=== PATIENT | male | born 1950 | race Caucasian/White ===

== ENCOUNTER → 2017-09-16 11:57 | Outpatient (CLI) | payer MEDICARE, BC, SELFPAY | PROVIDERS: PCP Family Medicine; Visit Provider Surgery | DX: D64.9 Anemia, unspecified (principal); I10 Essential (primary) hypertension; E11.9 Type 2 diabetes mellitus without complications; Z79.84 Long term (current) use of oral hypoglycemic drugs | CPT/HCPCS: 99214 ==

== ENCOUNTER → 2017-09-25 10:00 | Outpatient (CLI) | payer MEDICARE, BC, SELFPAY | PROVIDERS: PCP Family Medicine; Visit Provider Surgery | DX: D64.9 Anemia, unspecified (principal); Z01.818 Encounter for other preprocedural examination ==

== ENCOUNTER → 2017-11-19 12:11 | Outpatient (BNVA) | payer MEDICARE, BC, SELFPAY | PROVIDERS: Visit Provider Nurse Practitioner Family | DX: I48.91 Unspecified atrial fibrillation (principal); I49.5 Sick sinus syndrome; Z45.018 Encounter for adjustment and management of other part of cardiac pacemaker; I11.0 Hypertensive heart disease with heart failure; I50.20 Unspecified systolic (congestive) heart failure; E11.9 Type 2 diabetes mellitus without complications; Z79.84 Long term (current) use of oral hypoglycemic drugs | CPT/HCPCS: 93279; 99213 ==

== ENCOUNTER 2017-11-22 15:39 | Outpatient (REF) | payer MEDICARE, BC, SELFPAY ==
[2017-11-22 18:57] LABS: Abs Immature Grans 0.04 k/cumm (0.0-0.09); Absolute Basophil Count 0.03 k/cumm (0.0-0.2); Absolute Eosinophil Count 0.41 k/cumm (0.0-0.7); Absolute Lymphocyte Count 1.23 k/cumm (1.2-3.4); Absolute Monocyte Count 0.86 k/cumm (0.11-0.7); Absolute Neutrophil Count 4.96 k/cumm (1.2-6.7); Basophils % 0.4; Eosinophils % 5.4; HCT 35.8 % (40.0-50.0); HGB 11.7 g/dL (13.5-17.5); Immature Grans % 0.5; Lymphocytes % 16.3; Mean Corp. HGB Concentration 32.7 g/dL (32.0-36.0); Mean Corpuscular Hemoglobin 32.5 pg (27.0-33.0); Mean Corpuscular Volume 99.4 fL (80-95); Monocytes % 11.4; Platelet Count 220 x1000/uL (130-400); RBC Distribution Width 15.2 % (11.8-14.1); White Blood Cell Count 7.53 k/cumm (4.4-10.8)
[2017-11-22 19:39] LABS: ALT 30 U/L (12-78); AST 26 U/L (15-37); Albumin 3.8 g/dL (3.4-5.0); Alkaline Phosphatase 110 U/L (46-116); Anion Gap 9.7 mmol/L (3-11); BUN 31 mg/dL (7-18); Bilirubin, Total 0.8 mg/dL (0.2-1.0); CO2 25.3 mmol/L (21.0-32.0); Calcium 8.2 mg/dL (8.5-10.1); Chloride 103 mmol/L (98-107); Folate 8.5 ng/mL (8.6-20.0); Glucose 174 mg/dL (70-100); Potassium 4.8 mmol/L (3.5-5.1); Sodium 138 mmol/L (136-145); Total Protein 6.4 g/dL (6.4-8.2); Vitamin B12 286 pg/mL (193-986)
[2017-11-22 19:42] LABS: ESR 13 MM/HR (1-20)
[2017-11-22 19:56] LABS: C-Reactive Protein 0.34 mg/dL (0.0-0.3)
[2017-11-22 22:32] LABS: Hemoglobin A1C 7.3 % (4.5-6.2)
[2017-11-25 10:01] LABS: PSA, Diagnostic 0.4 ng/ml (0-4.5)
[2017-11-25 13:58] LABS: Syphilis Serology (RPR) Negative (Negative)
== END 2017-11-22 15:59 ==
LOC: NCHCN 15:39
PROVIDERS: PCP Family Medicine; Visit Provider Family Medicine
DX: R41.3 Other amnesia (principal); M79.18 Myalgia, other site; E11.9 Type 2 diabetes mellitus without complications; Z79.84 Long term (current) use of oral hypoglycemic drugs; N40.0 Benign prostatic hyperplasia without lower urinary tract symptoms; Z11.3 Encounter for screening for infections with a predominantly sexual mode of transmission
CPT/HCPCS: 80053; 85652; 82607; 82746; 83036; 84153; 85025; 86140; 86592

== ENCOUNTER 2017-11-25 04:35 | Observation (INO) | payer MEDICARE, BC, SELFPAY ==
[2017-11-25] VITALS (95 sets, daily range): BP systolic 68–139; BP diastolic 47–91; PULSE 54–90; RESP 11–35; TEMP 35.9–36.8; O2SAT 92–100
--- NOTE | 2017-11-25 05:07 | W.ED.GENAD ---
Discharge Plan Discharge Details Chief Complaint: Dizzy/Sync Primary Care Provider: Joanne Brewster ED Provider: Shant Rivas Home Meds and New Rx's Prescriptions: No Action aspirin [Aspir-Low] 81 MG tablet,delayed release (DR/EC) 81 mg PO DAILY RF: 0 magnesium oxide 500 MG capsule 400 mg PO BID Qty: 1 RF: 0 amiodarone 200 MG tablet 200 mg PO DAILY RF: 0 ropinirole 2 MG tablet extended release 24 hr 2 mg PO HS RF: 0 spironolactone 25 MG tablet 50 mg PO DAILY RF: 0 lisinopril 5 MG tablet 2.5 mg PO QAM RF: 0 carvedilol 25 MG tablet 25 mg PO BID Qty: 0 RF: 0 furosemide [Lasix] 40 MG tablet 40 mg PO DAILY RF: 0 riboflavin (vitamin B2) [Vitamin B-2] 100 MG tablet 100 mg PO BID RF: 0 zolpidem 12.5 MG tablet,ext release multiphase 12.5 mg PO HS PRN PRNRF: 0 acetaminophen [Arthritis Pain Relief (acetam)] 650 MG tablet extended release 1,300 mg PO PRN PRNRF: 0 warfarin [Coumadin] 7.5 MG tablet 2.5 mg PO DAILY RF: 0 metformin 500 MG tablet extended release 24 hr 1,000 mg PO BID RF: 0 cyclobenzaprine 10 MG tablet 10 mg PO PRN PRNRF: 0 gabapentin 600 MG tablet 600 mg PO BID RF: 0 albuterol sulfate [ProAir HFA] 8.5 GM HFA aerosol inhaler 1 puff IN Q4H PRN PRNRF: 0 rosuvastatin [Crestor] 20 MG tablet 20 mg PO DAILY RF: 0 hydrocodone-acetaminophen 1 EACH tablet 1 ea PO PRN PRNRF: 0 Medical Decision Making 5:15 --67-year-old male with multiple medical problems including congestive heart failure with a EF of 20%, here after near syncopal episode last night with persistent chest discomfort. Patient is saturating well in no respiratory distress with normal heart rate and blood pressure. He does continue to have mild stinging discomfort at this time. Consider arrhythmia versus ACS versus PE vs other. ECG reviewed and interpreted by me: Ventricular paced rhythm 78 bpm, appropriately discordant. Will check trop. Of note, patient states that he has refused ICD placement and does wish to be DNR/DNI. He agrees with workup today as outlined. 5:50 -- Labs reviewed: initial trop neg. inr therapeutic. Cr elevated with poor GFR. PE highly unlikely. Given risk of worsening renal function as a result of contrast dye, and low risk of PE, will not CT. Patient reassessed: sleepy comfortably, pain resolved. I discussed diagnostic treatment plan with him and he is in agreement. Plan for delta trop and cxr. 6:50 --chest x-ray interpreted by radiology: Normal chest x-ray, mediastinum unremarkable, lungs unremarkable, heart unremarkable. 8:10 -- I called and spoke with hospitalist Dr. Ascencio who will admit the patient. He requested bridging orders be placed to the floor. Care signed out to Dr. Rivas -patient awaiting bed placement HPI General Mode of arrival: ambulatory. Date/Time Provider Initiated Documentation: 11/25/17 04:45. Limitations to Documentation: no limitations. Information obtained by: patient. HPI Narrative: 67-year-old male with multiple medical problems including chronic congestive heart failure with poor EF, mitral valve replacement, atrial fibrillation, diabetes, hypertension, presents today with chief complaint of chest pain. Patient states that he has a stinging discomfort in his central chest. Discomfort is mild at this time and was more severe earlier. No modifiers. Pain is been persistent since 1230. He has associated lightheadedness and had a spell around 11 PM last night where he had near syncope. Related Data Home Medications Medication Instructions Recorded Confirmed lisinopril 2.5 mg PO QAM 04/29/12 11/25/17 acetaminophen [Arthritis Pain 1,300 mg PO PRN PRN 06/27/12 11/25/17 Relief (acetam)] furosemide [Lasix] 40 mg PO DAILY 06/27/12 11/25/17 riboflavin (vitamin B2) [Vitamin 100 mg PO BID 06/27/12 11/25/17 B-2] zolpidem 12.5 mg PO HS PRN PRN 06/27/12 11/25/17 carvedilol 25 mg PO BID #0 07/02/12 11/25/17 aspirin [Aspir-Low] 81 mg PO DAILY tab-cap 09/18/12 11/25/17 magnesium oxide 400 mg PO BID #1 09/18/12 11/25/17 metformin 1,000 mg PO BID 06/28/13 11/25/17 warfarin [Coumadin] 2.5 mg PO DAILY 06/28/13 11/25/17 cyclobenzaprine 10 mg PO PRN PRN 02/23/14 11/25/17 amiodarone 200 mg PO DAILY tab-cap 09/10/14 11/25/17 ropinirole 2 mg PO HS 09/10/14 11/25/17 rosuvastatin [Crestor] 20 mg PO DAILY 03/29/16 11/25/17 spironolactone 50 mg PO DAILY tab-cap 04/25/16 11/25/17 albuterol sulfate [ProAir HFA] 1 puff IN Q4H PRN PRN 06/03/17 11/25/17 gabapentin 600 mg PO BID 06/03/17 11/25/17 hydrocodone-acetaminophen 1 ea PO PRN PRN 09/25/17 11/25/17 Previous Rx's Medication Instructions Recorded carvedilol 25 mg PO BID #0 07/02/12 Allergies Allergy/AdvReac Type Severity Reaction Status Date / Time dofetilide Allergy Unknown Unverified 11/25/17 04:40 General Stated Complaint: Dizzy/Sync SUELLEN: 2 Review of Systems Review of Systems All systems reviewed & are unremarkable except as noted in HPI and below PFSH Medical History Atrial fibrillation BPH (benign prostatic hyperplasia) Benign hypertension Cervical radiculopathy Chronic congestive heart failure Depression Diabetes mellitus Diabetes mellitus associated with genetic syndrome Diverticulosis H/O mitral valve replacement Hyperlipidemia Hypertension Lumbar back pain Mitral valve disorder Neck pain Obstructive sleep apnea Osteoarthritis Restless leg syndrome chronic anticoagulation Social History Smoking/Tobacco Use Status: Never Surgical History Fusion CMC joint (01/19/09) Pacemaker (05/22/16) Tonsillectomy and adenoidectomy Trigger Finger release (01/02/11) Trigger Finger release (04/29/12) Vasectomy mitral valve replacement resection arthroplasty right thumb (01/17/09) Exam Const General: cooperative, comfortable and no acute distress Nutritional Appearance: well nourished Orientation: alert, awake and not confused [facility] Head: normocephalic and atraumatic Mouth: moist mucous membranes Eyes Conjunctivae: normal conjunctivae Sclera: normal sclerae EOM: EOM intact bilaterally Neck Neck: trachea midline and no JVD Resp Auscultation: clear to auscultation bilaterally, no rales, no rhonchi and no wheezes Cardio Jugular venous pressure: no JVD Rate: regular rate and not tachycardic Rhythm: regular rhythm GI Palpation: soft, not firm, no guarding, no masses, not rigid and nontender Skin General skin exam: no rashes or lesions noted Neuro General: alert, awake, oriented x3 and tone normal Cranial Nerves: EOM intact bilaterally and facial strength normal Speech: speech normal Motor: muscle tone normal throughout Sensory Exam: no sensory deficits noted Extrem General: no calf tenderness bilaterally and no edema Psych Appearance: grossly normal Mental Status: mental status grossly normal Speech and Movement: speech and movement normal Course Vital Signs Temperature 36.7 C 11/25/17 04:42 Pulse 81 11/25/17 04:42 Respiratory Rate 18 11/25/17 04:42 Blood Pressure 139/80 11/25/17 04:42 Pulse Oximetry 99 11/25/17 04:42 Temperature 36.7 C 11/25/17 04:42 Temperature Source Temporal Artery Scan 11/25/17 04:42 Pulse 81 11/25/17 04:42 Respiratory Rate 16 11/25/17 05:01 Respiratory Effort 11/25/17 05:01 Blood Pressure 139/80 11/25/17 04:42 Pulse Oximetry 99 11/25/17 04:42 Oxygen Delivery Method Room Air 11/25/17 04:42 Oxygen Flow Rate 0 11/25/17 04:42 Pain Level 7 11/25/17 04:42 Sign Out Sign Out Data: Sign Out Comment: follow-up 2nd trop. plan to admit for rule out acs. Last updated by Rush Laureano MD at 11/25/17 08:11
[2017-11-25 05:17] LABS: Abs Immature Grans 0.03 k/cumm (0.0-0.09); Absolute Basophil Count 0.06 k/cumm (0.0-0.2); Absolute Eosinophil Count 0.45 k/cumm (0.0-0.7); Absolute Lymphocyte Count 2.15 k/cumm (1.2-3.4); Absolute Monocyte Count 1.02 k/cumm (0.11-0.7); Absolute Neutrophil Count 4.85 k/cumm (1.2-6.7); Basophils % 0.7; Eosinophils % 5.3; HCT 36.4 % (40.0-50.0); HGB 12.1 g/dL (13.5-17.5); Immature Grans % 0.4; Lymphocytes % 25.1; Mean Corp. HGB Concentration 33.2 g/dL (32.0-36.0); Mean Corpuscular Volume 99.2 fL (80-95); Mean Platelet Volume 9.4 fL (8.0-11.0); Monocytes % 11.9; Neutrophils % 56.6; Platelet Count 223 x1000/uL (130-400); RBC 3.67 m/cumm (4.50-6.00); RBC Distribution Width 15.1 % (11.8-14.1); White Blood Cell Count 8.56 k/cumm (4.4-10.8)
[2017-11-25 05:33] LABS: ALT 31 U/L (12-78); AST 27 U/L (15-37); Albumin 3.8 g/dL (3.4-5.0); Alkaline Phosphatase 122 U/L (46-116); Anion Gap 9.6 mmol/L (3-11); BUN 32 mg/dL (7-18); Bilirubin, Total 0.8 mg/dL (0.2-1.0); CO2 27.4 mmol/L (21.0-32.0); CREATININE 2.29 mg/dL (0.70-1.30); Calcium 8.6 mg/dL (8.5-10.1); Chloride 102 mmol/L (98-107); Estimated GFR 28.74 (mL/min/1.73m2); Glucose 153 mg/dL (70-100); Magnesium 2.3 mg/dL (1.8-2.4); Potassium 3.9 mmol/L (3.5-5.1); Sodium 139 mmol/L (136-145); Total Protein 7.1 g/dL (6.4-8.2)
[2017-11-25 05:41] LABS: INR 3.2 (1.0-3.5); Troponin I < 0.02 ng/mL (0.00-0.06)
--- NOTE | 2017-11-25 05:55 | DI.RAD_ITS ---
SYMPTOMS/DIAGNOSIS: CHEST PAIN PA AND LATERAL CHEST: The heart is enlarged. There is a transvenous cardiac pacemaker in position. The lungs are clear. No pleural effusion seen. CONCLUSION: No evidence of acute disease.
--- NOTE | 2017-11-25 06:24 | DI.VRAD_ITS ---
EXAM: XR Chest, 2 Views EXAM DATE/TIME: 11/25/2017 6:15 AM. CLINICAL HISTORY: 67 years old, male; Pain; Chest pain; Prior surgery; Surgery type: Pacemaker TECHNIQUE: Frontal and lateral views of the chest. COMPARISON: CR CHEST 2 VIEWS PA,LAT 08/20/2017 3:34 PM FINDINGS: Lungs: Unremarkable. No consolidation. Pleural space: Unremarkable. No pneumothorax. Heart: Unremarkable. No cardiomegaly. Mediastinum: Unremarkable. Bones/joints: Unremarkable. Tubes, lines and devices: Left-sided chest wall pacemaker in place IMPRESSION: No acute findings. Dictated and Authenticated by: Jose Yadav MD. Ordering:LUCIANO MCALLISTER MD
[2017-11-25 08:09] LABS: Troponin I < 0.02 ng/mL (0.00-0.06)
[2017-11-25 12:55] LABS: Troponin I < 0.02 ng/mL (0.00-0.06)
--- NOTE | 2017-11-25 14:37 | W.PM.HP.N ---
Date of service: 11/25/17 Time of Service: 14:37 Assessment and Plan (1) Atrial fibrillation: Current visit: No Status: Chronic On anti-arrhythmic therapy with Amiodarone 200 mg daily. Currently SB with intermittent [employer]. Chronic anti-coagulation with coumadin due to hx mitral valve replacement as well as stroke prevention. Goal INR 2.5-3.5. (2) History of heart failure.: Current visit: No Status: Chronic ECHO (04/2015) LVEF 20-25%. No signs of heart failure on exam. Continue loop diuretic. ACEI and spironolactone on hold due to worsening renal function. (3) Cerebrovascular accident: Current visit: No Status: Chronic Continue ASA and high intensity statin. (4) Near syncope: Current visit: Yes Status: Acute Unclear etiology. No evidence of tachyarrhythmias on device interrogation. It is possible that Sathya is experiencing orthostatic changes. ACEI and K+ sparing diuretic on hold currently due to poor renal function. Maybe with the reduction in diuretic and anti-hypertensive his symptoms will improve. Will have nursing check orthostatics. Will monitor on telemetry overnight. Nursing to obtain I&O's, daily weights, VS Q shift and PRN. Troponin x3 have been negative. Will re-check 1 more on the morning. (5) Chest pain: Current visit: Yes Status: Acute Unlikely related to cardiac ischemia in light of negative troponins and no ischemic EKG changes. Sathya is adament that he is a DNR/DNI and would not want any invasive interventions that may prolong his life. (6) Pacemaker: Current visit: Yes Status: Acute Normal device interrogation with ample generator life remaining. No ventricular dysrhythmias. Refer to scanned documents for interrogation details. History of Present Illness Chief Complaint: near syncope, CP Narrative: Sathya is a pleasant 67 yo gentleman with multiple medical co-morbidities including type 2 DM, hx CVA, HTN, HLD, hx mitral valve replacement x2, CHF, PAF, hx VF arrest s/p ICD which was down graded to a pacemaker 05/2016 who presented to the ER at [facility] after near syncope and reports of ongoing CP. Last night at approximately 11:30 pm Sathya was playing pool at the [employer] when he suddenly became extremely dizzy. He fell to the floor, however did not lose consciousness. Fortunately he had a few friends in close proximity that prevented him from falling. He does believe he struck his R shoulder as it is more tender today than normal. After this initial dizzy spell he got to his feet and continued playing pool. He felt ok for the next hour, however around 12:30 am he began to experience left anterior chest discomfort that remained localized and did not radiate. He had no associated signs or symptoms and no alleviating or exacerbating factors. Pain is described as sharp and stinging. Initially he thought he was having another stroke or TIA. The pain eventually changed to a flat ache. Usually Sathya does not come to the ER, however the pain remained constant and was not decreasing in intensity so he came to the ER for further evaluation. In the ER he had a non-ischemic appearing EKG and screening bloodwork that showed a negative troponin and worsening renal function with Cr of 2.29 with baseline Cr around 2-2.1. CXR was normal with no acute cardiopulmonary process. Is being admitted to the hospitalist service on observation status. Review of Systems Constitutional Reports as per HPI, Reports fatigue and Reports frequent falls Eyes Reports blurry vision, Reports change in vision and Reports diplopia ENT Reports system reviewed and no additional complaints, except as docu and Reports dizziness Cardiovascular Reports as per HPI, Reports chest pain, Reports syncope (near syncope), Reports irregular heart rhythm (occassional) and Reports lightheadedness Respiratory Reports system reviewed and no additional complaints, except as docu Gastrointestinal Reports system reviewed and no additional complaints, except as docu Genitourinary Reports system reviewed and no additional complaints, except as docu Musculoskeletal Reports limited range of motion, Reports muscle weakness and Reports other (chronic bilateral shoulder pain) Neurologic Reports burning sensations (burning chest pain), Reports confusion (intermittent), Reports dizziness, Reports syncope (near syncope), Reports frequent falls, Reports lack of coordination, Reports memory loss (short term memory impairement) and Reports other visual disturbances (occasional blurry/double vision) Psychiatric Reports system reviewed and no additional complaints, except as docu, Reports confusion (intermittent) and Reports memory loss (short term memory impairement) Endocrine Reports system reviewed and no additional complaints, except as docu and Reports fatigue Hematologic/Lymphatic Reports system reviewed and no additional complaints, except as docu Allergic/Immunologic Reports system reviewed and no additional complaints, except as docu [facility] Family History Mother Obesity CVA (cerebral vascular accident) Father Diabetes COPD (chronic obstructive pulmonary disease) Brother Heart disease HTN (hypertension) Brother Heart disease Myocardial infarct ICD (implantable cardioverter-defibrillator) battery depletion Son No problems noted. Son Asperger's disorder Anxiety ADHD Medical History Atrial fibrillation BPH (benign prostatic hyperplasia) Benign hypertension Cervical radiculopathy Chronic congestive heart failure Depression Diabetes mellitus Diabetes mellitus associated with genetic syndrome Diverticulosis H/O mitral valve replacement Hyperlipidemia Hypertension Lumbar back pain Mitral valve disorder Neck pain Obstructive sleep apnea Osteoarthritis Restless leg syndrome chronic anticoagulation Social History adopted: No household members: children housing: house marital status: lives independently: Yes number of children: 2 current occupational status: disabled leisure activities: other Hx Recent Travel: No Smoking/Tobacco Use Status: Never substance use type: does not use Surgical History Fusion CMC joint (01/19/09) Pacemaker (05/22/16) Tonsillectomy and adenoidectomy Trigger Finger release (01/02/11) Trigger Finger release (04/29/12) Vasectomy mitral valve replacement resection arthroplasty right thumb (01/17/09) Meds Home Medications Medication Instructions Recorded Confirmed Type lisinopril 2.5 mg PO QAM 04/29/12 11/25/17 History acetaminophen [Arthritis Pain 1,300 mg PO PRN PRN 06/27/12 11/25/17 History Relief (acetam)] furosemide [Lasix] 40 mg PO DAILY 06/27/12 11/25/17 History riboflavin (vitamin B2) [Vitamin 100 mg PO BID 06/27/12 11/25/17 History B-2] zolpidem 12.5 mg PO HS PRN PRN 06/27/12 11/25/17 History carvedilol 25 mg PO BID #0 07/02/12 11/25/17 Rx aspirin [Aspir-Low] 81 mg PO DAILY tab-cap 09/18/12 11/25/17 History magnesium oxide 400 mg PO BID #1 09/18/12 11/25/17 History metformin 1,000 mg PO BID 06/28/13 11/25/17 History warfarin [Coumadin] 2.5 mg PO DAILY 06/28/13 11/25/17 History cyclobenzaprine 10 mg PO PRN PRN 02/23/14 11/25/17 History amiodarone 200 mg PO DAILY tab-cap 09/10/14 11/25/17 History ropinirole 2 mg PO HS 09/10/14 11/25/17 History rosuvastatin [Crestor] 20 mg PO DAILY 03/29/16 11/25/17 History spironolactone 50 mg PO DAILY tab-cap 04/25/16 11/25/17 History albuterol sulfate [ProAir HFA] 1 puff IN Q4H PRN PRN 06/03/17 11/25/17 History gabapentin 600 mg PO BID 06/03/17 11/25/17 History hydrocodone-acetaminophen 1 ea PO PRN PRN 09/25/17 11/25/17 History Allergies Allergy/AdvReac Type Severity Reaction Status Date / Time dofetilide Allergy Unknown Unverified 11/25/17 04:40 Exam Narrative Exam Narrative: Pacemaker Interrogation Med[employer]onic Sensia implanted 05/22/[address] Taylor for hx PAF, sinus node dysfunction Battery Status Remaining Longevity 9.5 years (8-11 years) Voltage/Impedance 2.77V/254 ohms Right Ventricular lead Threshold 0.625V @ 0.40ms Programmed Output 2V @ 0.40ms Programmed Sensitivity 4mV Measured R wave 8 to 16mV Impedance 457 ohms Mode is VVIR 60-130 bpm No ventricular High rates VS 76.3% [employer] 23.7% Const General: cooperative, comfortable, no acute distress, well developed and well groomed Nutritional Appearance: well nourished and overweight Orientation: alert, awake, oriented x3, oriented to person, oriented to place and oriented to time [facility] Head: normal to inspection Ears: hearing grossly normal bilaterally General nose exam: external nose normal Face and sinus: normal facial exam Mouth: oral mucosae normal, lip normal, tongue normal, moist mucous membranes and other (dentition in poor repair) Teeth and gingiva: poor dentition Throat: posterior oropharynx normal Eyes General: appearance normal, both eyes and all related structures Eyelids: eyelids normal Conjunctivae: conjunctivae normal Sclera: sclerae normal Pupils: PERRL Neck Neck: normal visual inspection and no JVD Carotids: normal carotid upstroke Lymphatic: no lymphadenopathy noted Resp Effort & Inspection: normal respiratory effort and able to speak in complete sentences Auscultation: clear to auscultation bilaterally Cardio Jugular venous pressure: no JVD Rate: regular rate Rhythm: regular rhythm Heart Sounds: S1 normal, S2 normal, no gallops, no murmurs and no rubs Pulses: radial pulses present, posterior tibial pulses present and dorsalis pedis pulses present GI Inspection: normal to inspection Palpation: soft and no hepatosplenomegaly (somewhat difficult to assess given body habitus) Auscultation: normal bowel sounds General: deferred Skin General skin exam: no rashes or lesions noted Neuro General: alert, awake, oriented x3, gait normal, tone normal, moves all extremities, normal light touch, pain and propioception, no focal motor deficits and CN's II-XI intact bilaterally Cognition: normal cognition Speech: speech normal Gait: normal gait Motor: muscle tone normal throughout Sensory Exam: no sensory deficits noted Extrem General: normal to inspection and no edema Results Labs : 11/25/17 04:59 11/25/17 04:59 Laboratory Results - last 24 hr 11/25/17 11/25/17 11/25/17 04:59 04:59 04:59 WBC 8.56 RBC 3.67 L Hgb 12.1 L Hct 36.4 L MCV 99.2 H MCH 33.0 MCHC 33.2 RDW 15.1 H Plt Count 223 MPV 9.4 Immature Gran % 0.4 Neutrophils % 56.6 Lymphocytes % 25.1 Monocytes % 11.9 Eosinophils % 5.3 Basophils % 0.7 Absolute Neutrophils 4.85 Absolute Lymphocytes 2.15 Absolute Monocytes 1.02 H Absolute Eosinophils 0.45 Absolute Basophils 0.06 PT 30.0 H INR 3.2 Sodium 139 Potassium 3.9 Chloride 102 Carbon Dioxide 27.4 Anion Gap 9.6 BUN 32 H Creatinine 2.29 H Estimated GFR/1.73 m2 28.74 Glucose 153 H Calcium 8.6 Magnesium 2.3 Total Bilirubin 0.8 AST 27 ALT 31 Alkaline Phosphatase 122 H Troponin I < 0.02 Total Protein 7.1 Albumin 3.8 11/25/17 11/25/17 07:35 12:30 WBC RBC Hgb Hct MCV MCH MCHC RDW Plt Count MPV Immature Gran % Neutrophils % Lymphocytes % Monocytes % Eosinophils % Basophils % Absolute Neutrophils Absolute Lymphocytes Absolute Monocytes Absolute Eosinophils Absolute Basophils PT INR Sodium Potassium Chloride Carbon Dioxide Anion Gap BUN Creatinine Estimated GFR/1.73 m2 Glucose Calcium Magnesium Total Bilirubin AST ALT Alkaline Phosphatase Troponin I < 0.02 < 0.02 Total Protein Albumin Last Vital Signs Temp 36.7 C 11/25/17 04:42 Pulse 82 11/25/17 14:27 Resp 27 H 11/25/17 14:30 BP 104/72 11/25/17 14:27 Pulse Ox 97 11/25/17 14:30
--- NOTE | 2017-11-25 14:43 | HPE_ITS ---
Date of service: 11/25/17 Time of Service: 14:37 Assessment and Plan (1) Atrial fibrillation: Current visit: No Status: Chronic On anti-arrhythmic therapy with Amiodarone 200 mg daily. Currently SB with intermittent MEDICAL ADVISOR. Chronic anti-coagulation with coumadin due to hx mitral valve replacement as well as stroke prevention. Goal INR 2.5-3.5. (2) History of heart failure.: Current visit: No Status: Chronic ECHO (04/2015) LVEF 20-25%. No signs of heart failure on exam. Continue loop diuretic. ACEI and spironolactone on hold due to worsening renal function. (3) Cerebrovascular accident: Current visit: No Status: Chronic Continue ASA and high intensity statin. (4) Near syncope: Current visit: Yes Status: Acute Unclear etiology. No evidence of tachyarrhythmias on device interrogation. It is possible that Sathya is experiencing orthostatic changes. ACEI and K+ sparing diuretic on hold currently due to poor renal function. Maybe with the reduction in diuretic and anti-hypertensive his symptoms will improve. Will have nursing check orthostatics. Will monitor on telemetry overnight. Nursing to obtain I&O's, daily weights, VS Q shift and PRN. Troponin x3 have been negative. Will re-check 1 more on the morning. (5) Chest pain: Current visit: Yes Status: Acute Unlikely related to cardiac ischemia in light of negative troponins and no ischemic EKG changes. Sathya is adament that he is a DNR/DNI and would not want any invasive interventions that may prolong his life. (6) Pacemaker: Current visit: Yes Status: Acute Normal device interrogation with ample generator life remaining. No ventricular dysrhythmias. Refer to scanned documents for interrogation details. History of Present Illness Chief Complaint: near syncope, CP Narrative: Sathya is a pleasant 67 yo gentleman with multiple medical co- morbidities including type 2 DM, hx CVA, HTN, HLD, hx mitral valve replacement x2, CHF, PAF, hx VF arrest s/p ICD which was down graded to a pacemaker 05/2016 who presented to the ER at [facility] after near syncope and reports of ongoing CP. Last night at approximately 11:30 pm Sathya was playing pool at the [employer] when he suddenly became extremely dizzy. He fell to the floor, however did not lose consciousness. Fortunately he had a few friends in close proximity that prevented him from falling. He does believe he struck his R shoulder as it is more tender today than normal. After this initial dizzy spell he got to his feet and continued playing pool. He felt ok for the next hour, however around 12 :30 am he began to experience left anterior chest discomfort that remained localized and did not radiate. He had no associated signs or symptoms and no alleviating or exacerbating factors. Pain is described as sharp and stinging . Initially he thought he was having another stroke or TIA. The pain eventually changed to a flat ache. Usually Sathya does not come to the ER, however the pain remained constant and was not decreasing in intensity so he came to the ER for further evaluation. In the ER he had a non-ischemic appearing EKG and screening bloodwork that showed a negative troponin and worsening renal function with Cr of 2.29 with baseline Cr around 2-2.1. CXR was normal with no acute cardiopulmonary process. Is being admitted to the hospitalist service on observation status. Review of Systems Constitutional Reports as per HPI, Reports fatigue and Reports frequent falls Eyes Reports blurry vision, Reports change in vision and Reports diplopia ENT Reports system reviewed and no additional complaints, except as docu and Reports dizziness Cardiovascular Reports as per HPI, Reports chest pain, Reports syncope (near syncope), Reports irregular heart rhythm (occassional) and Reports lightheadedness Respiratory Reports system reviewed and no additional complaints, except as docu Gastrointestinal Reports system reviewed and no additional complaints, except as docu Genitourinary Reports system reviewed and no additional complaints, except as docu Musculoskeletal Reports limited range of motion, Reports muscle weakness and Reports other ( chronic bilateral shoulder pain) Neurologic Reports burning sensations (burning chest pain), Reports confusion (intermittent ), Reports dizziness, Reports syncope (near syncope), Reports frequent falls, Reports lack of coordination, Reports memory loss (short term memory impairement ) and Reports other visual disturbances (occasional blurry/double vision) Psychiatric Reports system reviewed and no additional complaints, except as docu, Reports confusion (intermittent) and Reports memory loss (short term memory impairement) Endocrine Reports system reviewed and no additional complaints, except as docu and Reports fatigue Hematologic/Lymphatic Reports system reviewed and no additional complaints, except as docu Allergic/Immunologic Reports system reviewed and no additional complaints, except as docu [facility] Family History Mother Obesity CVA (cerebral vascular accident) Father Diabetes COPD (chronic obstructive pulmonary disease) Brother Heart disease HTN (hypertension) Brother Heart disease Myocardial infarct ICD (implantable cardioverter-defibrillator) battery depletion Son No problems noted. Son Asperger's disorder Anxiety ADHD Medical History Atrial fibrillation BPH (benign prostatic hyperplasia) Benign hypertension Cervical radiculopathy Chronic congestive heart failure Depression Diabetes mellitus Diabetes mellitus associated with genetic syndrome Diverticulosis H/O mitral valve replacement Hyperlipidemia Hypertension Lumbar back pain Mitral valve disorder Neck pain Obstructive sleep apnea Osteoarthritis Restless leg syndrome chronic anticoagulation Social History adopted: No household members: children housing: house marital status: lives independently: Yes number of children: 2 current occupational status: disabled leisure activities: other Hx Recent Travel: No Smoking/Tobacco Use Status: Never substance use type: does not use Surgical History Fusion CMC joint (01/19/09) Pacemaker (05/22/16) Tonsillectomy and adenoidectomy Trigger Finger release (01/02/11) Trigger Finger release (04/29/12) Vasectomy mitral valve replacement resection arthroplasty right thumb (01/17/09) Meds Home Medications Medication Instructions Recorded Confirmed Type lisinopril 2.5 mg PO QAM 04/29/12 11/25/17 History acetaminophen [Arthritis Pain 1,300 mg PO PRN PRN 06/27/12 11/25/17 History Relief (acetam)] furosemide [Lasix] 40 mg PO DAILY 06/27/12 11/25/17 History riboflavin (vitamin B2) [Vitamin 100 mg PO BID 06/27/12 11/25/17 History B-2] zolpidem 12.5 mg PO HS PRN PRN 06/27/12 11/25/17 History carvedilol 25 mg PO BID #0 07/02/12 11/25/17 Rx aspirin [Aspir-Low] 81 mg PO DAILY tab-cap 09/18/12 11/25/17 History magnesium oxide 400 mg PO BID #1 09/18/12 11/25/17 History metformin 1,000 mg PO BID 06/28/13 11/25/17 History warfarin [Coumadin] 2.5 mg PO DAILY 06/28/13 11/25/17 History cyclobenzaprine 10 mg PO PRN PRN 02/23/14 11/25/17 History amiodarone 200 mg PO DAILY tab-cap 09/10/14 11/25/17 History ropinirole 2 mg PO HS 09/10/14 11/25/17 History rosuvastatin [Crestor] 20 mg PO DAILY 03/29/16 11/25/17 History spironolactone 50 mg PO DAILY tab-cap 04/25/16 11/25/17 History albuterol sulfate [ProAir HFA] 1 puff IN Q4H PRN PRN 06/03/17 11/25/17 History gabapentin 600 mg PO BID 06/03/17 11/25/17 History hydrocodone-acetaminophen 1 ea PO PRN PRN 09/25/17 11/25/17 History Allergies Allergy/AdvReac Type Severity Reaction Status Date / Time dofetilide Allergy Unknown Unverified 11/25/17 04:40 Exam Narrative Exam Narrative: Pacemaker Interrogation Medtronic Sensia implanted 05/22/[address] Taylor for hx PAF, sinus node dysfunction Battery Status Remaining Longevity 9.5 years (8-11 years) Voltage/Impedance 2.77V/254 ohms Right Ventricular lead Threshold 0.625V @ 0.40ms Programmed Output 2V @ 0.40ms Programmed Sensitivity 4mV Measured R wave 8 to 16mV Impedance 457 ohms Mode is VVIR 60-130 bpm No ventricular High rates VS 76.3% MEDICAL ADVISOR 23.7% Const General: cooperative, comfortable, no acute distress, well developed and well groomed Nutritional Appearance: well nourished and overweight Orientation: alert, awake, oriented x3, oriented to person, oriented to place and oriented to time [facility] Head: normal to inspection Ears: hearing grossly normal bilaterally General nose exam: external nose normal Face and sinus: normal facial exam Mouth: oral mucosae normal, lip normal, tongue normal, moist mucous membranes and other (dentition in poor repair) Teeth and gingiva: poor dentition Throat: posterior oropharynx normal Eyes General: appearance normal, both eyes and all related structures Eyelids: eyelids normal Conjunctivae: conjunctivae normal Sclera: sclerae normal Pupils: PERRL Neck Neck: normal visual inspection and no JVD Carotids: normal carotid upstroke Lymphatic: no lymphadenopathy noted Resp Effort & Inspection: normal respiratory effort and able to speak in complete sentences Auscultation: clear to auscultation bilaterally Cardio Jugular venous pressure: no JVD Rate: regular rate Rhythm: regular rhythm Heart Sounds: S1 normal, S2 normal, no gallops, no murmurs and no rubs Pulses: radial pulses present, posterior tibial pulses present and dorsalis pedis pulses present GI Inspection: normal to inspection Palpation: soft and no hepatosplenomegaly (somewhat difficult to assess given body habitus) Auscultation: normal bowel sounds General: deferred Skin General skin exam: no rashes or lesions noted Neuro General: alert, awake, oriented x3, gait normal, tone normal, moves all extremities, normal light touch, pain and propioception, no focal motor deficits and CN's II-XI intact bilaterally Cognition: normal cognition Speech: speech normal Gait: normal gait Motor: muscle tone normal throughout Sensory Exam: no sensory deficits noted Extrem General: normal to inspection and no edema Results Labs : 11/25/17 04:59 11/25/17 04:59 Laboratory Results - last 24 hr 11/25/17 11/25/17 11/25/17 04:59 04:59 04:59 WBC 8.56 RBC 3.67 L Hgb 12.1 L Hct 36.4 L MCV 99.2 H MCH 33.0 MCHC 33.2 RDW 15.1 H Plt Count 223 MPV 9.4 Immature Gran % 0.4 Neutrophils % 56.6 Lymphocytes % 25.1 Monocytes % 11.9 Eosinophils % 5.3 Basophils % 0.7 Absolute Neutrophils 4.85 Absolute Lymphocytes 2.15 Absolute Monocytes 1.02 H Absolute Eosinophils 0.45 Absolute Basophils 0.06 PT 30.0 H INR 3.2 Sodium 139 Potassium 3.9 Chloride 102 Carbon Dioxide 27.4 Anion Gap 9.6 BUN 32 H Creatinine 2.29 H Estimated GFR/1.73 m2 28.74 Glucose 153 H Calcium 8.6 Magnesium 2.3 Total Bilirubin 0.8 AST 27 ALT 31 Alkaline Phosphatase 122 H Troponin I < 0.02 Total Protein 7.1 Albumin 3.8 11/25/17 11/25/17 07:35 12:30 WBC RBC Hgb Hct MCV MCH MCHC RDW Plt Count MPV Immature Gran % Neutrophils % Lymphocytes % Monocytes % Eosinophils % Basophils % Absolute Neutrophils Absolute Lymphocytes Absolute Monocytes Absolute Eosinophils Absolute Basophils PT INR Sodium Potassium Chloride Carbon Dioxide Anion Gap BUN Creatinine Estimated GFR/1.73 m2 Glucose Calcium Magnesium Total Bilirubin AST ALT Alkaline Phosphatase Troponin I < 0.02 < 0.02 Total Protein Albumin Last Vital Signs Temp 36.7 C 11/25/17 04:42 Pulse 82 11/25/17 14:27 Resp 27 H 11/25/17 14:30 BP 104/72 11/25/17 14:27 Pulse Ox 97 11/25/17 14:30
[2017-11-25] MEDS: Gabapentin 600 MG TAB PO (20:00)
[2017-11-25] MEDS: Carvedilol 25 MG TAB PO (20:00)
[2017-11-25 21:48] LABS: TSH (W/Ref FT4) 6.65 uIU/mL (0.358-3.74)
[2017-11-25 22:07] LABS: FREE T4 1.33 ng/dL (0.76-1.46)
[2017-11-25] MEDS: rOPINIRole 1 MG TAB 2 MG PO (22:13)
[2017-11-25 22:35] LABS: Vitamin D 25 Total 16.3 ng/ml (30-100)
[2017-11-25] MEDS: Zolpidem 6.25 MG TABCR 12.5 MG PO (23:50)
[2017-11-26 03:45] VITALS: BP 102/69; BP 105/71; BP 116/80; PULSE 80; PULSE 83; PULSE 84; RESP 18; TEMP 35.7; O2SAT 97
[2017-11-26 07:14] VITALS: PULSE 83
[2017-11-26 07:24] LABS: INR 3.7 (1.0-3.5); Prothrombin Time 34.3 sec (9.3-10.8)
[2017-11-26] MEDS: Carvedilol 25 MG TAB PO (07:39)
[2017-11-26] MEDS: Furosemide 40 MG TAB PO (07:39)
[2017-11-26] MEDS: Amiodarone 200 MG TAB PO (07:39)
[2017-11-26] MEDS: Gabapentin 600 MG TAB PO (07:39)
[2017-11-26] MEDS: ROSUVASTATIN 20 MG TAB PO (07:40)
[2017-11-26] MEDS: Aspirin E.C. 81 MG TABEC PO (07:40)
[2017-11-26 07:43] LABS: Troponin I < 0.02 ng/mL (0.00-0.06)
[2017-11-26 07:50] VITALS: BP 123/82; PULSE 85; RESP 18; TEMP 35.7; O2SAT 96
[2017-11-26 09:25] LABS: BUN 28 mg/dL (7-18); CREATININE 1.91 mg/dL (0.70-1.30); Calcium 8.6 mg/dL (8.5-10.1); Chloride 102 mmol/L (98-107); Estimated GFR 35.43 (mL/min/1.73m2); Glucose 120 mg/dL (70-100); Potassium 4.1 mmol/L (3.5-5.1); Sodium 137 mmol/L (136-145)
[2017-11-26] MEDS: Magnesium Oxide 400 MG TAB PO (09:34)
[2017-11-26] MEDS: Acetaminophen 325 MG TAB PO (09:34)
[2017-11-26 10:05] VITALS: BP 103/66; BP 116/79; BP 126/85; PULSE 80; PULSE 83
[2017-11-26 12:00] VITALS: BP 133/78; PULSE 65; RESP 18; TEMP 35.8; O2SAT 97
[2017-11-26] MEDS: Insulin Aspart 300 UNITS/3 ML PEN SC (12:12)
--- NOTE | 2017-11-26 12:51 | DSE_ITS ---
Date of service: 11/26/17 Time of Service: 12:45 DS: Diagnosis Discharge Diagnosis (1) Atrial fibrillation: Status: Chronic (2) History of heart failure.: Status: Chronic (3) Cerebrovascular accident: Status: Chronic (4) Near syncope: Status: Acute (5) Chest pain: Status: Acute (6) Pacemaker: Status: Acute (7) Diabetes: Status: Chronic Discharge Plan Disposition Patient Disposition: HOME Condition: Good Discharge Details Reason For Visit: CHEST PAIN Admit Date/Time: 11/25/17 08:17 Admit Provider: Ross Ascencio Attending Provider: Ross Ascencio Primary Care Provider: Joanne Brewster [facility] Course Hospital Course: Sathya is a pleasant 67 yo gentleman with multiple medical co-morbidities including type 2 DM, hx CVA, HTN, HLD, hx mitral valve replacement x2, CHF, PAF , hx VF arrest s/p ICD which was down graded to a pacemaker 05/2016 who presented to the ER at [facility] after near syncope and reports of ongoing CP. He presented on 11/25/17 after the night before he was playing pool out with friends and became dizzy and fell to the floor. He denied losing consciousness, he did not strike his head. His friends helped him up. Later that evening, he began to experience left anterior chest discomfort that remained localized and did not radiate. He had no associated signs or symptoms and no alleviating or exacerbating factors. Pain is described as sharp and stinging. Initially he thought he was having another stroke or TIA. The pain eventually changed to a flat ache. Usually Sathya does not come to the ER, however the pain remained constant and was not decreasing in intensity so he came to the ER for further evaluation. In the ER he had a non-ischemic appearing EKG and screening bloodwork that showed a negative troponin and worsening renal function with Cr of 2.29 with baseline Cr around 2-2.1. CXR was normal with no acute cardiopulmonary process. Is being admitted to the hospitalist service on observation status. Overnight, he continued to have some chest discomfort with position changes in bed. He had no chest pain at all with ambulation. He had no associated symptoms , no shortness of breath or diaphoresis. On examination, the chest pain was not reproducible with palpation. He was not experiencing any dizziness or lightheadedness. His troponins came back negative x4. There was discussion about possibly doing a stress test to further rule out cardiac origin of his chest pain, however, he was not interested in pursuing cardiac catheterization or any other invasive work-up in the event that the stress treat was positive. His last ECHO revealed an LVEF of 20-25%. He was not interested in repeat echocardiogram. He is interested in follow up with Palliative care as he is only interested in quality of life. A referral to Palliative care has been placed. His renal function improved overnight. His aldactone and lisinopril were held. We will continue to hold these medications upon discharge and have follow up blood work in 2 days time to reevaluate his renal function prior to restarting. These medications will likely need to be restarted for his Heart failure. Although consideration could be made to make adjustments to his regimen to avoid orthostatic hypotension in the future. Also, his INR was supratherapeutic at 3.7 on the day of discharge, his goal is 2.5-3.5 due to his mechanical valve. He will follow up with his PCP as scheduled. Palliative care will contact him at home. Home Meds and New Rx's Prescriptions: Continue aspirin [Aspir-Low] 81 MG tablet,delayed release (DR/EC) 81 mg PO DAILY RF: 0 magnesium oxide 500 MG capsule 400 mg PO BID Qty: 1 RF: 0 amiodarone 200 MG tablet 200 mg PO DAILY RF: 0 ropinirole 2 MG tablet extended release 24 hr 2 mg PO HS RF: 0 spironolactone 25 MG tablet 50 mg PO DAILY RF: 0 lisinopril 5 MG tablet 2.5 mg PO QAM RF: 0 carvedilol 25 MG tablet 25 mg PO BID Qty: 0 RF: 0 furosemide [Lasix] 40 MG tablet 40 mg PO DAILY RF: 0 riboflavin (vitamin B2) [Vitamin B-2] 100 MG tablet 100 mg PO BID RF: 0 zolpidem 12.5 MG tablet,ext release multiphase 12.5 mg PO HS PRN PRNRF: 0 acetaminophen [Arthritis Pain Relief (acetam)] 650 MG tablet extended release 1,300 mg PO PRN PRNRF: 0 warfarin [Coumadin] 7.5 MG tablet 2.5 mg PO DAILY RF: 0 metformin 500 MG tablet extended release 24 hr 1,000 mg PO BID RF: 0 cyclobenzaprine 10 MG tablet 10 mg PO PRN PRNRF: 0 gabapentin 600 MG tablet 600 mg PO BID RF: 0 albuterol sulfate [ProAir HFA] 8.5 GM HFA aerosol inhaler 1 puff IN Q4H PRN PRNRF: 0 rosuvastatin [Crestor] 20 MG tablet 20 mg PO DAILY RF: 0 hydrocodone-acetaminophen 1 EACH tablet 1 ea PO PRN PRNRF: 0 Discharge Instructions Instructions: Chest Pain (DC), Chest Wall Pain (GEN) Additional Instructions: Do not take your Aldactone or Lisinopril until your PCP tells you that it is OK to do so. Only take 2.5 mg of coumadin tonight. You need to have follow up blood work done in 2 days 11/28/17. Contact your PCP office after the blood work to see if they want you to restart your meds. Take all of your other meds as usual. Take care! Stand Alone Forms: Nursing Discharge Form Referrals: Joanne Brewster MD [Primary Care Provider] - 12/02/17 1:40 pm Chhaya Concepcion MD [ [facility] STAFF PHYSICIAN] - Activity:: Activity as Tolerated Equipment/Supplies:: No Equipment Needed Diet:: Carb Counting Discharge Orders Discharge Orders: Discharge Order (Routine); Ordered 11/26/17 Ordered By: Alaina Espinoza Other Ambulatory Orders: Basic Metabolic Panel (Routine) Timeframe: 2 Days Location: Determined by Patient Ordered By: Alaina Espinoza Prothrombin Time (Routine) Timeframe: 2 Days Location: Determined by Patient Ordered By: Alaina Espinoza Exam Narrative Exam Narrative: On exam, he is alert and oriented, pleasant and cooperative. He is speaking in complete sentences and answering questions appropriately. Normocephalic, atraumatic. Respirations are even and unlabored, LSCTA throughout. His heart has a regular rate and rhythm. No chest pain on palpation. Abdomen is soft, nontender, normoactive bowel sounds. He has venous stasis changes to his lower extremities. No edema, peripheral pulses are palpable. DS: Data Vitals/I&O Vitals and I&O: Vital Signs Temperature 35.7 C L 11/26/17 07:50 Temperature Source Tympanic 11/26/17 07:50 Pulse 83 11/26/17 10:05 Pulse Rhythm Irregular 11/26/17 07:40 Pulse 82 11/25/17 15:20 Respiratory Rate 18 11/26/17 07:50 Respiratory Effort Non-Labored 11/26/17 07:40 Respiratory Depth Normal 11/26/17 07:40 Respiratory Pattern Normal 11/26/17 07:40 Blood Pressure 103/66 11/26/17 10:05 Blood Pressure Mean 82 11/25/17 15:16 Pulse Oximetry 96 11/26/17 07:50 Oxygen Delivery Method Room Air 11/26/17 07:50 Oxygen Flow Rate 0 11/26/17 07:50 Pain Level 3 11/26/17 09:34 Comment 11/26/17 10:05 Intake & Output 11/25/17 11/26/17 11/26/17 23:59 11:59 23:59 Intake Total 480 / 480 360 / 360 Balance 480 / 480 360 / 360 Weight 111.1 kg 111.6 kg Intake: Oral 480 / 480 360 / 360 Other: Comment pt gets up AD LUIS to void. Stool Size Large Stool Characteristics Soft Formed Brown Voiding Methods Toilet Completed studies during hospitalization [Text1]: 11/25/17 PA AND LATERAL CHEST: The heart is enlarged. There is a transvenous cardiac pacemaker in position. The lungs are clear. No pleural effusion seen. CONCLUSION: No evidence of acute disease. Labs on day of discharge: Labs from last 24 hours 11/26/17 11/26/17 11/26/17 06:50 06:50 06:50 PT 34.3 H INR 3.7 H Sodium 137 Potassium 4.1 Chloride 102 Carbon Dioxide 23.0 Anion Gap 12.0 H BUN 28 H Creatinine 1.91 H Estimated GFR/1.73 m2 35.43 Glucose 120 H Calcium 8.6 Troponin I < 0.02 25-OH Vitamin D Total TSH Free T4 11/25/17 11/25/17 11/25/17 12:59 12:30 04:59 PT INR Sodium Potassium Chloride Carbon Dioxide Anion Gap BUN Creatinine Estimated GFR/1.73 m2 Glucose Calcium Troponin I Cancelled < 0.02 25-OH Vitamin D Total 16.3 L TSH Free T4 11/25/17 04:59 PT INR Sodium Potassium Chloride Carbon Dioxide Anion Gap BUN Creatinine Estimated GFR/1.73 m2 Glucose Calcium Troponin I 25-OH Vitamin D Total TSH 6.65 H Free T4 1.33
[2017-11-26 14:08] VITALS: PULSE 83
--- NOTE | 2017-11-26 19:58 | CMPROGNOTE_ITS ---
Care Management Progress Note Sathya was preparing for discharge when CM met with him. He spoke in length about his family; his two very different sons who reside with him. His son Bo is his POA, and resides will he and his other son, Rick. Sathya talks in length, proudly about his sons and their strengths. Sathya discusses how Rick was diagnosed with Asperger's when he was twenty-two and how the diagnosis allowed Sathya to understand Rick better, and strengthened their relationship. Sathya also spoke in length about his disease process-in a light hearted manner-and shared how his functioning and memory has changed including CHF, ejection fraction of 20%. He reported speaking with a counselor at his PCP's office and how he was looking forward to meeting with Palliative Care upon discharge. He discussed his wishes for when he has passed and detailed his instructions for his son's and the arrangements he has made. He showed this pattern chart writer tattoos on his chest outlining his wishes to not be resuscitated or supported by machines. He discussed losing his , his mourning process and how he turned to alcohol and hid from the world in his home for months. He reported this is when Bo moved home and described how the three men work together to manage the home and their lives collectively and separately. He was gracious, pleasant in interaction and forthcoming with information. He asked for this writers card, stating he may not remember the conversation tomorrow, and would need a reminder. CM faxed OP Palliative Care information to the PC office and reviewed care management contact information with Sathya may he need further support post discharge.
== END 2017-11-26 15:18 | disposition home or self-care (01) ==
LOC: ER 15:31 → MS 16:08
PROVIDERS: Emergency Medicine; Nurse Practitioner Primary Care; Student in an Organized Health Care Education/Training Program; Admitting Provider Internal Medicine; Emergency Provider Student in an Organized Health Care Education/Training Program; PCP Family Medicine; Visit Provider Internal Medicine
DX: R07.9 Chest pain, unspecified; Z86.73 Personal history of transient ischemic attack (TIA), and cerebral infarction without residual deficits; R55 Syncope and collapse; Z95.0 Presence of cardiac pacemaker; E11.9 Type 2 diabetes mellitus without complications; I10 Essential (primary) hypertension; E78.5 Hyperlipidemia, unspecified; I48.91 Unspecified atrial fibrillation; W19.XXXA Unspecified fall, initial encounter
CPT/HCPCS: 36415; 80048; 80053; 82306; 93005; 99223; 99239; 99285; 71046; 83735; 84439; 84443; 84484; 85025; 85610; 93010; 99220; G0378

== ENCOUNTER 2017-11-28 12:06 | Outpatient (CLI) | payer MEDICARE, BC, SELFPAY ==
[2017-11-28 13:09] LABS: INR 2.3 (1.0-3.5); Prothrombin Time 21.6 sec (9.3-10.8)
[2017-11-28 13:26] LABS: Anion Gap 11.5 mmol/L (3-11); BUN 26 mg/dL (7-18); CO2 22.5 mmol/L (21.0-32.0); CREATININE 1.93 mg/dL (0.70-1.30); Calcium 8.9 mg/dL (8.5-10.1); Chloride 102 mmol/L (98-107); Estimated GFR 35.01 (mL/min/1.73m2); Glucose 139 mg/dL (70-100); Potassium 4.3 mmol/L (3.5-5.1); Sodium 136 mmol/L (136-145)
== END 2017-11-28 12:26 ==
PROVIDERS: PCP Family Medicine; Visit Provider Nurse Practitioner
DX: N28.9 Disorder of kidney and ureter, unspecified (principal); I48.91 Unspecified atrial fibrillation
CPT/HCPCS: 36415; 80048; 85610

== ENCOUNTER 2018-02-16 08:16 | Emergency (ER) | payer MEDICARE, BC, SELFPAY ==
[2018-02-16] VITALS (27 sets, daily range): BP systolic 112–149; BP diastolic 72–84; PULSE 66–80; RESP 12–27; TEMP 36.6; O2SAT 93–95
--- NOTE | 2018-02-16 08:15 | W.ED.GENAD ---
Discharge Plan Disposition Patient Disposition: HOME Condition: Improving Discharge Details Chief Complaint: Nk/Back Pain Clinical Impression: Rib fracture Reason For Visit: DOUG Primary Care Provider: Joanne Brewster ED Provider: Jose Stein Home Meds and New Rx's Prescriptions: New hydromorphone 2 mg tablet 2 - 4 mg PO Q4H PRN (Reason: pain) Qty: 10 RF: 0 No Action aspirin [Aspir-Low] 81 MG tablet,delayed release (DR/EC) 81 mg PO DAILY RF: 0 magnesium oxide 500 MG capsule 400 mg PO BID Qty: 1 RF: 0 amiodarone 200 MG tablet 200 mg PO DAILY RF: 0 carvedilol 25 MG tablet 25 mg PO BID Qty: 0 RF: 0 furosemide [Lasix] 40 MG tablet 40 mg PO DAILY RF: 0 zolpidem 12.5 MG tablet,ext release multiphase 12.5 mg PO HS PRN PRNRF: 0 riboflavin (vitamin B2) [Vitamin B-2] 100 mg tablet 200 mg PO DAILY RF: 0 metformin 500 MG tablet extended release 24 hr 1,000 mg PO BID RF: 0 cyclobenzaprine 10 MG tablet 10 mg PO PRN PRNRF: 0 gabapentin 600 MG tablet 600 mg PO BID RF: 0 ProAir HFA 8.5 GM HFA aerosol inhaler 1 puff IN Q4H PRN PRNRF: 0 cyanocobalamin (vitamin B-12) [Vitamin B-12] 1,000 mcg Tablet 1,000 mcg PO DAILY RF: 0 warfarin 5 mg Tablet See Rx Instructions .ROUTE .COMPLEX RF: 0 rosuvastatin [Crestor] 20 MG tablet 20 mg PO DAILY RF: 0 hydrocodone-acetaminophen 1 EACH tablet 1 ea PO PRN PRNRF: 0 Discharge Instructions Instructions: Rib Fracture (ED) Additional Instructions: 1. Drink plenty fluids. 2. Acetaminophen 1000 mg every 4 hours as needed (up to 5 times a day). 3. Hydromorphone 2-4 mg every 4 hours as needed 4. Activity as tolerated. Ice sore areas frequently. Return for worsening pain, fever, difficulty breathing, chest pain, palpitations, abdominal pain, or any concerning symptoms. Referrals: Joanne Brewster MD [Primary Care Provider] - Medical Decision Making 67-year-old gentleman with a history of BPH, diverticulosis, DM, and atrial fibrillation (on warfarin) who presented for evaluation of severe local left posterior lateral chest wall pain associated with a traumatic injury yesterday evening. Describes having fallen with impact to a work branch. His fall was mechanical in nature with no preceding syncope, palpitations, or focal extremity weakness. Evaluation here nonfocal except for local left lower lateral chest wall tenderness with associated ecchymosis. He has no abdominal soft tissue tenderness adjacent to the chest wall. Bedside ultrasound diagnostic for an isolated minimally displaced 12th rib fracture with surrounding hematoma. Hematoma block placed under ultrasound guidance with 0.25% bupivacaine with moderate local anesthesia. INR = 2.5. Clinically improved after receiving oral acetaminophen, oral hydromorphone, and oral Flexeril. Discharged home with a limited prescription for hydromorphone (#10). Patient has Flexeril at home prescribed for chronic recurrent pain. Remains stable on multiple re-evaluations with no progression of dyspnea or abdominal pain. He has had no gross hematuria since the event. Given usual and customary return instructions at discharge. Medical Records Medical records reviewed: Yes I reviewed the patient's medical records. Imaging Data Radiologic Study: Imaging: Ultrasound (Limited bedside MSK ultrasound performed by myself. ) My impression: Limited MSK ultrasound: Minimally displaced isolated 12 thoracic rib fracture with small adjacent hematoma. No pneumothorax or obvious pulmonary contusion. Images interpreted independently after the by myself. Images archived for review on ultrasound system. 67yo male w a PMH which includes CHARLINE, DM, DHF, CAD, AF (on warfarin), and MVR. Has an AICD and reports last INR measured at home = 2.1. Presents via EMS for evaluation of severe R lower lateral chest wall/back pain associated with a fall at 2200. Describes losing his balance and striking his chest wall/back against a workbench. He denies falling to the ground. On arrival, he has no other constitutional complaints except for severe pain in his left lateral chest wall and suspicion of a rib fracture. HPI General Date/Time Provider Initiated Documentation: 02/16/18 08:24. Related Data Home Medications Medication Instructions Recorded Confirmed furosemide [Lasix] 40 mg PO DAILY 06/27/12 02/16/18 zolpidem 12.5 mg PO HS PRN PRN 06/27/12 02/16/18 carvedilol 25 mg PO BID #0 07/02/12 02/16/18 aspirin [Aspir-Low] 81 mg PO DAILY tab-cap 09/18/12 02/16/18 magnesium oxide 400 mg PO BID #1 09/18/12 02/16/18 metformin 1,000 mg PO BID 06/28/13 02/16/18 cyclobenzaprine 10 mg PO PRN PRN 02/23/14 02/16/18 amiodarone 200 mg PO DAILY tab-cap 09/10/14 02/16/18 rosuvastatin [Crestor] 20 mg PO DAILY 03/29/16 02/16/18 ProAir HFA 1 puff IN Q4H PRN PRN 06/03/17 12/04/17 gabapentin 600 mg PO BID 06/03/17 02/16/18 hydrocodone-acetaminophen 1 ea PO PRN PRN 09/25/17 02/16/18 riboflavin (vitamin B2) 100 mg 200 mg PO DAILY tab 12/04/17 02/16/18 tablet cyanocobalamin (vitamin B-12) 1,000 mcg PO DAILY 02/16/18 02/16/18 [Vitamin B-12] hydromorphone 2 - 4 mg PO Q4H PRN #10 tab NS 02/16/18 warfarin See Rx Instructions .ROUTE .COMPLEX 02/16/18 02/16/18 Previous Rx's Medication Instructions Recorded carvedilol 25 mg PO BID #0 07/02/12 hydromorphone 2 - 4 mg PO Q4H PRN #10 tab NS 02/16/18 Allergies Allergy/AdvReac Type Severity Reaction Status Date / Time dofetilide Allergy Unknown Unverified 02/16/18 08:53 General SUELLEN: 2 Review of Systems Review of Systems All systems reviewed & are unremarkable except as noted in HPI and below Constitutional Denies excessive sweating and Denies fatigue Eyes Denies change in vision ENT Reports as per HPI, Denies dysphagia and Denies dizziness Cardiovascular Reports as per HPI, Denies chest pain and Denies dyspnea Respiratory Denies dyspnea Gastrointestinal Denies dysphagia Genitourinary Reports as per HPI, Denies oliguria and Denies difficulty urinating Musculoskeletal Reports as per HPI and Denies muscle weakness Comments: Right inferior posterior lateral chest wall/back pain which is worsened with palpation and positional change Neurologic Denies confusion and Denies dizziness Psychiatric Reports as per HPI, Denies anxiety, Denies change in appetite and Denies confusion Endocrine Denies excessive sweating and Denies fatigue Hematologic/Lymphatic Denies easy bleeding and Denies easy bruising [facility] Medical History Atrial fibrillation BPH (benign prostatic hyperplasia) Benign hypertension Cervical radiculopathy Chronic congestive heart failure Depression Diabetes mellitus Diabetes mellitus associated with genetic syndrome Diverticulosis H/O mitral valve replacement Hyperlipidemia Hypertension Lumbar back pain Mitral valve disorder Neck pain Obstructive sleep apnea Osteoarthritis Restless leg syndrome chronic anticoagulation Surgical History Fusion CMC joint (01/19/09) Pacemaker (05/22/16) Tonsillectomy and adenoidectomy Trigger Finger release (01/02/11) Trigger Finger release (04/29/12) Vasectomy mitral valve replacement resection arthroplasty right thumb (01/17/09) Family History Mother Obesity Stroke Father Diabetes COPD (chronic obstructive pulmonary disease) Brother Heart disease Hypertension Brother Heart disease Myocardial infarct ICD (implantable cardioverter-defibrillator) battery depletion Son No problems noted. Son Asperger's disorder Anxiety ADHD Social History adopted: No caregiver/support person: Yes (lives with son w/ aspergers) details: second son comes to home to help occassionally. in charge of finances household members: children housing: house lives independently: Yes number of children: 2 current occupational status: disabled leisure activities: other Hx Recent Travel: No Smoking/Tobacco Use Status: Former Tobacco Use substance use type: does not use Exam Const General: cooperative, comfortable and not in acute distress Orientation: alert and awake HENMT Head: normocephalic and atraumatic Eyes Conjunctivae: conjunctivae normal Sclera: sclerae normal Neck Neck: normal visual inspection and full ROM Resp Effort & Inspection: normal respiratory effort Auscultation: clear to auscultation bilaterally, no rales, no rhonchi and no wheezes Cardio Rate: regular rate Rhythm: regular rhythm Heart Sounds: S1 normal and S2 normal GI Palpation: soft, not rigid and nontender Back/Spine/Pelvis Back: CVA tenderness (Right 12) and No back tenderness Skin Nails: other (Chronic venous stasis change) Neuro General: alert and awake Speech: speech normal Motor: muscle tone normal throughout Extrem General: no edema Psych Mental Status: mental status grossly normal Speech and Movement: speech and movement normal Procedures Other Description: Ultrasound-guided hematoma block: Skin prepped in sterile fashion.. Cc 0.25% bupivacaine infused at the rib fracture site with a 24-gauge needle under ultrasound guidance. Needle tip visualized in the rib hematoma during infusion. Moderate analgesia achieved. Images saved for review on ultrasound system.
[2018-02-16] MEDS: Acetaminophen 500 MG TAB 1000 MG PO (09:01)
[2018-02-16] MEDS: HYDROmorphone 4 MG TAB PO (09:03)
[2018-02-16 09:28] LABS: INR 2.5 (0.9-1.1); Prothrombin Time 25.2 sec (9.3-11.0)
[2018-02-16] MEDS: HYDROmorphone 2 MG TAB PO (12:39)
[2018-02-16] MEDS: Cyclobenzaprine 10 MG TAB PO (12:41)
== END 2018-02-16 13:05 | disposition home or self-care (01) ==
PROVIDERS: Emergency Provider Emergency Medicine; PCP Family Medicine
DX: S22.32XA Fracture of one rib, left side, initial encounter for closed fracture (principal); S20.222A Contusion of left back wall of thorax, initial encounter; W08.XXXA Fall from other furniture, initial encounter; E11.9 Type 2 diabetes mellitus without complications; I10 Essential (primary) hypertension; Z79.01 Long term (current) use of anticoagulants
CPT/HCPCS: 36415; 64450; 99284; 85610; 99283

== ENCOUNTER 2018-02-18 14:50 | Emergency (ER) | payer MEDICARE, BC, SELFPAY ==
[2018-02-18] VITALS (22 sets, daily range): BP systolic 111–144; BP diastolic 61–87; PULSE 56–76; RESP 8–17; TEMP 36.3; O2SAT 90–97
--- NOTE | 2018-02-18 15:27 | ED.GENADUL_ITS ---
Discharge Plan Disposition Patient Disposition: HOME Condition: Good Discharge Details Chief Complaint: Abd Prob Clinical Impression: Closed rib fracture, [id number]-ahqkwyd kidney injury Primary Care Provider: Joanne Brewster ED Provider: Phillip Zapata Home Meds and New Rx's Prescriptions: New lidocaine [Lidoderm] 1 PATCH patch 1 patch Topical Q24H Qty: 4 RF: 0 No Action aspirin [Aspir-Low] 81 MG tablet,delayed release (DR/EC) 81 mg PO DAILY RF: 0 magnesium oxide 500 MG capsule 400 mg PO BID Qty: 1 RF: 0 amiodarone 200 MG tablet 200 mg PO DAILY RF: 0 carvedilol 25 MG tablet 25 mg PO BID Qty: 0 RF: 0 furosemide [Lasix] 40 MG tablet 40 mg PO DAILY RF: 0 zolpidem 12.5 MG tablet,ext release multiphase 12.5 mg PO HS PRN PRNRF: 0 riboflavin (vitamin B2) [Vitamin B-2] 100 mg tablet 200 mg PO DAILY RF: 0 metformin 500 MG tablet extended release 24 hr 1,000 mg PO BID RF: 0 cyclobenzaprine 10 MG tablet 10 mg PO PRN PRNRF: 0 gabapentin 600 MG tablet 600 mg PO BID RF: 0 ProAir HFA 8.5 GM HFA aerosol inhaler 1 puff IN Q4H PRN PRNRF: 0 hydromorphone 2 mg tablet 2 - 4 mg PO Q4H PRN (Reason: pain) Qty: 10 RF: 0 cyanocobalamin (vitamin B-12) [Vitamin B-12] 1,000 mcg Tablet 1,000 mcg PO DAILY RF: 0 warfarin 5 mg Tablet See Rx Instructions .ROUTE .COMPLEX RF: 0 rosuvastatin [Crestor] 20 MG tablet 20 mg PO DAILY RF: 0 hydrocodone-acetaminophen 1 EACH tablet 1 ea PO PRN PRNRF: 0 Discharge Instructions Instructions: Rib Fracture (ED) Additional Instructions: Please follow-up as soon as possible with your primary care provider regarding your elevated kidney function. If you stop having any urine produced, if you feel lightheaded, or please return immediately. Please use the incentive spirometer as directed. If you notice any worsening of your symptoms, or any new symptoms such as vomiting, diarrhea, fever, chills, shortness of breath, chest pain, numbness, weakness, or fainting , please return immediately to the emergency department for reevaluation. Please follow up with your primary care provider as soon as possible for reassessment and reevaluation. As always, it was a pleasure participating in your medical care today. Referrals: Joanne Brewster MD [Primary Care Provider] - Medical Decision Making <Shant Rivas MD - Last Filed: 02/18/18 15:27> 67-year-old male presents following blunt trauma to the left thoracic cage on Saturday, for which he was evaluated in the emergency department and underwent a bedside ultrasound which revealed rib fractures. He now presents with ongoing left-sided thoracic & abdomen discomfort. He is anticoagulated on warfarin. Vital signs are stable. Differential diagnosis includes pulmonary contusion, multiple rib fractures, pneumothorax, abdominal visceral injury including spleen. Therefore, IV placed, labs obtained, patient to be referred for CT i milady. As it is change of shift, patient be signed out to Dr. Zapata. Please see his note regarding details of the diagnostic findings. <Phillip Zapata DO - Last Filed: 02/18/18 18:22> Case was signed out to me my colleague Dr. Brian Rivas pending CT results. CT has returned does demonstrate a fractured rib. Questionable atelectasis versus pneumonia. On my review with the patient he denies any significant cough with productive sputum, no fever or chills. I imagine he does correlate clinically with a pulmonary contusion. We have had respiratory therapy come and get the patient to a incentive spirometer for home use for pneumonia prevention. Patient states that he feels that his pain is controlled at this time. Patient does show evidence of an increase in his creatinine, he does have a history of elevated creatinine in the past but this is slightly higher than normal. My review he does have continued urine output, and shows no signs of obstruction on CT scan. Because of his continued ability to output urine, no significant electrolyte abnormalities I do feel that he can be safely discharged home he does need close follow-up though. He is following up with his primary care provider later this week. We discussed red flags which to return and the patient understands. I have extensively reviewed the treatment plan and discharge instructions with the patient. I have addressed all patient concerns at this time. The patient was made aware of what symptoms to monitor for that would warrant a return to the emergency department. Discussed the plan with the patient, they demonstrate verbal understanding and agreement with our assessment and plan at this time. FINDINGS: Tubes, catheters and devices: Transvenous pacemaker leads terminate in the right heart Lungs: Opacities in the lower lobes may represent atelectasis or pneumonia or contusions. Pleural space: Normal. No pneumothorax. No pleural effusion. Heart: Significant Mitral valve calcification Cardiomegaly Aorta: Normal. No aortic aneurysm. Lymph nodes: Unremarkable. No enlarged lymph nodes. Bones/joints: Contour abnormality in the anterior left fourth rib may represent acute fracture. Status post median sternotomy Soft tissues: Unremarkable. IMPRESSION: 1. Contour abnormality in the anterior left fourth rib may represent acute fracture. 2. Opacities in the lower lobes may represent atelectasis or pneumonia or contusions. HPI <Shant Rivas MD - Last Filed: 02/18/18 15:27> General Mode of arrival: wheelchair . Date/Time Provider Initiated Documentation: 02/18/18 14:55 . Limitations to Documentation: no limitations . Information obtained by: patient and family . History of Present Illness 67 year old M presents to the emergency department with the chief complaint of L lower thoracic and abdominal pain since a fall against a countertop 02/16, described as moderate, Quality is described as stabbing, and is localized to the chest and left. Patient reports no radiation. Patient started experiencing this day(s) and it has been constant. Immobilization improves symptom(s), and Rest improves symptom(s), Movement worsens symptoms . Patient notes other (Question abdominal pain). Patient did receive the following treatments prior to arrival, none Related Data Home Medications Medication Instructions Recorded Confirmed furosemide [Lasix] 40 mg PO DAILY 06/27/12 02/18/18 zolpidem 12.5 mg PO HS PRN PRN 06/27/12 02/18/18 carvedilol 25 mg PO BID #0 07/02/12 02/18/18 aspirin [Aspir-Low] 81 mg PO DAILY tab-cap 09/18/12 02/18/18 magnesium oxide 400 mg PO BID #1 09/18/12 02/18/18 metformin 1,000 mg PO BID 06/28/13 02/18/18 cyclobenzaprine 10 mg PO PRN PRN 02/23/14 02/18/18 amiodarone 200 mg PO DAILY tab-cap 09/10/14 02/18/18 rosuvastatin [Crestor] 20 mg PO DAILY 03/29/16 02/18/18 ProAir HFA 1 puff IN Q4H PRN PRN 06/03/17 02/18/18 gabapentin 600 mg PO BID 06/03/17 02/18/18 hydrocodone-acetaminophen 1 ea PO PRN PRN 09/25/17 02/16/18 riboflavin (vitamin B2) 100 mg 200 mg PO DAILY tab 12/04/17 02/18/18 tablet cyanocobalamin (vitamin B-12) 1,000 mcg PO DAILY 02/16/18 02/18/18 [Vitamin B-12] hydromorphone 2 - 4 mg PO Q4H PRN #10 tab NS 02/16/18 02/18/18 warfarin See Rx Instructions .ROUTE .COMPLEX 02/16/18 02/18/18 lidocaine [Lidoderm] 1 patch TOPICAL Q24H #4 patch 02/18/18 Previous Rx's Medication Instructions Recorded carvedilol 25 mg PO BID #0 07/02/12 hydromorphone 2 - 4 mg PO Q4H PRN #10 tab NS 02/16/18 lidocaine [Lidoderm] 1 patch TOPICAL Q24H #4 patch 02/18/18 Allergies Allergy/AdvReac Type Severity Reaction Status Date / Time dofetilide Allergy Unknown Unverified 02/18/18 15:01 General Stated Complaint: Abd Prob SUELLEN: 3 Review of Systems <Shant Rivas MD - Last Filed: 02/18/18 15:27> Review of Systems 8 systems reviewed and otherwise negative PFS <Shant Rivas MD - Last Filed: 02/18/18 15:27> Medical History Atrial fibrillation BPH (benign prostatic hyperplasia) Benign hypertension Cervical radiculopathy Chronic congestive heart failure Depression Diabetes mellitus Diabetes mellitus associated with genetic syndrome Diverticulosis H/O mitral valve replacement Hyperlipidemia Hypertension Lumbar back pain Mitral valve disorder Neck pain Obstructive sleep apnea Osteoarthritis Restless leg syndrome chronic anticoagulation Surgical History Fusion CMC joint (01/19/09) Pacemaker (05/22/16) Tonsillectomy and adenoidectomy Trigger Finger release (01/02/11) Trigger Finger release (04/29/12) Vasectomy mitral valve replacement resection arthroplasty right thumb (01/17/09) Social History adopted: No caregiver/support person: Yes (lives with son mumtaz/ tyler) details: second son comes to home to help occassionally. in charge of finances household members: children housing: house lives independently: Yes number of children: 2 current occupational status: disabled leisure activities: other Hx Recent Travel: No Smoking/Tobacco Use Status: Former Tobacco Use substance use type: does not use Exam <Shant Rivas MD - Last Filed: 02/18/18 15:27> Narrative Exam Narrative: GEN: awake, alert, oriented 3. Pleasant, well groomed, interactive. HEAD: Normocephalic, atraumatic ENT: Mucous membranes moist, oropharynx unremarkable, External ear exam unremarkable EYES: PERRL, EOMI NECK: Full ROM, no RADHA, no menigismus CHEST/RESP: Tender left lower thoracic margin approximately mid axillary line, clear to auscultation bilateral, no wheeze/rhonchi/rales CARDIOVASCULAR: RRR, no murmur, rub charmaine. 2+ Rad pulse bilateral ABDOMEN: Soft, minimally tender left upper, no mass. +Bowel sounds EXT: Full ROM, no edema, no rash Neuro: Grossly normal neurologic exam, conversant, interactive. Psych: Speech fluent, thoughts congruent, affect normal Course <Shant Rivas MD - Last Filed: 02/18/18 15:27> Vital Signs Temperature 36.3 C L 02/18/18 14:54 Pulse 67 02/18/18 14:54 Respiratory Rate 16 02/18/18 14:54 Blood Pressure 144/87 H 02/18/18 14:54 Pulse Oximetry 97 02/18/18 14:54 Temperature 36.3 C L 02/18/18 14:54 Temperature Source Temporal Artery Scan 02/18/18 14:54 Pulse 67 02/18/18 14:54 Respiratory Rate 16 02/18/18 14:54 Respiratory Effort Non-Labored 02/18/18 14:54 Blood Pressure 144/87 H 02/18/18 14:54 Blood Pressure Position Sitting 02/18/18 14:54 Pulse Oximetry 97 02/18/18 14:54 Oxygen Delivery Method Room Air 02/18/18 14:54 Oxygen Flow Rate 0 02/18/18 14:54 Pain Level 6 02/18/18 14:54
[2018-02-18] MEDS: Normal Saline 1,000 ML 150 ML IV (16:00)
[2018-02-18 16:08] LABS: Abs Immature Grans 0.02 k/cumm (0.0-0.09); Absolute Basophil Count 0.03 k/cumm (0.0-0.2); Absolute Lymphocyte Count 1.24 k/cumm (1.2-3.4); Absolute Monocyte Count 0.81 k/cumm (0.11-0.7); Absolute Neutrophil Count 6.95 k/cumm (1.2-6.7); Basophils % 0.3; Eosinophils % 3.2; HGB 14.6 g/dL (13.5-17.5); Immature Grans % 0.2; Lymphocytes % 13.3; Mean Corp. HGB Concentration 31.7 g/dL (32.0-36.0); Mean Corpuscular Hemoglobin 32.5 pg (27.0-33.0); Mean Corpuscular Volume 102.4 fL (80-95); Mean Platelet Volume 9.7 fL (8.0-11.0); Monocytes % 8.7; Neutrophils % 74.3; Platelet Count 209 x1000/uL (130-400); RBC 4.49 m/cumm (4.50-6.00); RBC Distribution Width 14.5 % (11.8-14.1); White Blood Cell Count 9.35 k/cumm (4.4-10.8)
[2018-02-18 16:19] LABS: ALT 28 U/L (12-78); AST 21 U/L (15-37); Albumin 4.2 g/dL (3.4-5.0); Alkaline Phosphatase 166 U/L (46-116); Anion Gap 12.6 mmol/L (3-11); BUN 33 mg/dL (7-18); Bilirubin, Total 1.3 mg/dL (0.2-1.0); CO2 28.4 mmol/L (21.0-32.0); CREATININE 3.15 mg/dL (0.70-1.30); Calcium 9.8 mg/dL (8.5-10.1); Chloride 101 mmol/L (98-107); Estimated GFR 19.89 (mL/min/1.73m2); Glucose 170 mg/dL (70-100); Sodium 142 mmol/L (136-145); Total Protein 8.3 g/dL (6.4-8.2)
[2018-02-18 16:20] LABS: INR 2.7 (0.9-1.1); Prothrombin Time 27.6 sec (9.3-11.0)
[2018-02-18] MEDS: MORPHine 10 MG/ML VIAL 4 MG IVP (16:43)
--- NOTE | 2018-02-18 17:20 | DI.CT_ITS ---
SYMPTOM/DIAGNOSIS: LT THORACO-ABDOMEN PAIN AFTER BLUNT TRAUMA, RIB FX CHEST, ABDOMEN AND PELVIC CT: CT scan of the chest, abdomen and pelvis was performed without intravenous or oral contrast material. ABDOMEN AND PELVIS: Lack of IV contrast does limit evaluation of the abdominal and pelvic organs. The unenhanced liver, spleen, pancreas, gallbladder and bile ducts are unremarkable. The kidneys, ureter and bladder appear grossly unremarkable. There is atherosclerosis of the abdominal aorta but no aneurysmal dilatation is seen. No significant abdominal or pelvic adenopathy, ascites or pneumoperitoneum is present. There is diverticulosis of the sigmoid colon but no evidence of acute diverticulitis. The bowel shows no evidence of obstruction or inflammation. No evidence of an acute appendicitis is present. The bones are intact. Degenerative changes are seen in the spine. IMPRESSION: No evidence of an acute abdomen on this noncontrast examination. CHEST: The thoracic aorta is of normal caliber without aneurysmal dilatation. The heart is enlarged. There is calcification of the mitral valve noted. No pericardial effusion is seen. Pacing wires are in place. No significant thoracic adenopathy is present. There does appear to be a small left pleural effusion. Bilateral basilar infiltrates are seen. These may represent atelectasis or pneumonia. Contusions cannot be excluded. No pneumothorax is present. The tracheobronchial tree is unremarkable. There appears to be a nondisplaced fracture at the lateral aspect of the left fourth rib. Degenerative changes are seen in the spine. IMPRESSION: Question of a nondisplaced fracture involving the lateral aspect of the left fourth rib. Bilateral infiltrates in the lower lobes. This may represent atelectasis, pneumonia or contusions.
--- NOTE | 2018-02-18 17:58 | DI.VRAD_ITS ---
EXAM: CT Chest Without Contrast EXAM DATE/TIME: 02/18/2018 5:00 PM CLINICAL HISTORY: 67 years old, male; Signs and symptoms; Other: L thoraco-abdomen pain after blunt trauma. Rib FX TECHNIQUE: Axial computed tomography images of the chest without intravenous contrast. All CT scans at this facility use at least one of these dose optimization techniques: automated exposure control; mA and/or kV adjustment per patient size (includes targeted exams where dose is matched to clinical indication); or iterative reconstruction. Coronal and sagittal reformatted images were created and reviewed. COMPARISON: CR XR CHEST 2V PA LATERAL 11/25/2017 5:59 AM FINDINGS: Tubes, catheters and devices: Transvenous pacemaker leads terminate in the right heart Lungs: Opacities in the lower lobes may represent atelectasis or pneumonia or contusions. Pleural space: Normal. No pneumothorax. No pleural effusion. Heart: Significant Mitral valve calcification Cardiomegaly Aorta: Normal. No aortic aneurysm. Lymph nodes: Unremarkable. No enlarged lymph nodes. Bones/joints: Contour abnormality in the anterior left fourth rib may represent acute fracture. Status post median sternotomy Soft tissues: Unremarkable. IMPRESSION: 1. Contour abnormality in the anterior left fourth rib may represent acute fracture. 2. Opacities in the lower lobes may represent atelectasis or pneumonia or contusions. EXAM: CT Abdomen and Pelvis Without Contrast EXAM DATE/TIME: 02/18/2018 5:00 PM CLINICAL HISTORY: 67 years old, male; Signs and symptoms; Other: L thoraco-abdomen pain after blunt trauma. Rib FX TECHNIQUE: Axial computed tomography images of the abdomen and pelvis without contrast. All CT scans at this facility use at least one of these dose optimization techniques: automated exposure control; mA and/or kV adjustment per patient size (includes targeted exams where dose is matched to clinical indication); or iterative reconstruction. Coronal and sagittal reformatted images were created and reviewed. COMPARISON: CR XR CHEST 2V PA LATERAL 11/25/2017 5:59 AM FINDINGS: Lower thorax: Small hiatal hernia ABDOMEN: Liver: Normal. No mass. Gallbladder and bile ducts: Normal. No calcified stones. No ductal dilation. Pancreas: Pancreatic atrophy Spleen: Normal. No splenomegaly. Adrenals: Normal. No mass. Kidneys and ureters: No ureteral calculus. No renal calculus. Stomach and bowel: Diverticulosis of the rectosigmoid. No diverticulitis Appendix: No evidence of appendicitis. PELVIS: Bladder: Unremarkable as visualized. Reproductive: Unremarkable as visualized. Subperitoneal space: Mild presacral fluid ABDOMEN and PELVIS: Intraperitoneal space: Normal. No free air. No significant fluid collection. Bones/joints: No acute fracture. No dislocation. Soft tissues: Unremarkable. Vasculature: Inflammatory changes around the celiac axis are nonspecific Lymph nodes: Normal. No enlarged lymph nodes. IMPRESSION: No acute process Dictated and Authenticated by: Jorge Garcia MD. Ordering:RO Bran MD
[2018-02-18] MEDS: Normal Saline 1,000 ML 1000 ML IV (18:15)
== END 2018-02-18 19:23 | disposition home or self-care (01) ==
PROVIDERS: Emergency Medicine; Emergency Provider Student in an Organized Health Care Education/Training Program; PCP Family Medicine
DX: S22.32XD Fracture of one rib, left side, subsequent encounter for fracture with routine healing (principal); X58.XXXD Exposure to other specified factors, subsequent encounter; N17.9 Acute kidney failure, unspecified; N18.9 Chronic kidney disease, unspecified; E11.22 Type 2 diabetes mellitus with diabetic chronic kidney disease; I12.9 Hypertensive chronic kidney disease with stage 1 through stage 4 chronic kidney disease, or unspecified chronic kidney disease
CPT/HCPCS: 36415; 71250; 80053; 96360; 96361; 99284; 74176; 85025; 85610; 99283; J2270

== ENCOUNTER 2018-03-07 15:25 | Outpatient (REF) | payer MEDICARE, BC, SELFPAY ==
[2018-03-07 15:36] LABS: HCT 40.8 % (40.0-50.0); HGB 13.3 g/dL (13.5-17.5); Mean Corp. HGB Concentration 32.6 g/dL (32.0-36.0); Mean Corpuscular Hemoglobin 32.3 pg (27.0-33.0); Mean Platelet Volume 9.5 fL (8.0-11.0); Platelet Count 156 x1000/uL (130-400); RBC 4.12 m/cumm (4.50-6.00); RBC Distribution Width 14.6 % (11.8-14.1); White Blood Cell Count 7.71 k/cumm (4.4-10.8)
[2018-03-07 16:39] LABS: Anion Gap 8.8 mmol/L (3-11); BUN 30 mg/dL (7-18); CO2 28.2 mmol/L (21.0-32.0); CREATININE 2.06 mg/dL (0.70-1.30); Chloride 102 mmol/L (98-107); Estimated GFR 32.47 (mL/min/1.73m2); Glucose 166 mg/dL (70-100); Potassium 4.1 mmol/L (3.5-5.1); Sodium 139 mmol/L (136-145); TSH (W/Ref FT4) 6.41 uIU/mL (0.358-3.74); Vitamin B12 912 pg/mL (193-986)
[2018-03-07 16:47] LABS: Hemoglobin A1C 7.2 % (4.5-6.2)
[2018-03-07 16:49] LABS: Folate > 20.0 ng/mL (8.6-20.0)
[2018-03-07 17:06] LABS: FREE T4 1.24 ng/dL (0.76-1.46)
== END 2018-03-07 15:45 ==
LOC: NCHCN 15:25
PROVIDERS: PCP Family Medicine; Visit Provider Family Medicine
DX: E11.9 Type 2 diabetes mellitus without complications (principal); N18.3 Chronic kidney disease, stage 3 (moderate); R94.6 Abnormal results of thyroid function studies; D52.9 Folate deficiency anemia, unspecified
CPT/HCPCS: 80048; 85027; 82607; 82746; 83036; 84439; 84443

== ENCOUNTER 2018-03-21 15:14 | Outpatient (REF) | payer MEDICARE, BC, SELFPAY ==
[2018-03-21 17:39] LABS: Anion Gap 7.8 mmol/L (3-11); BUN 24 mg/dL (7-18); CO2 30.2 mmol/L (21.0-32.0); CREATININE 1.89 mg/dL (0.70-1.30); Calcium 8.8 mg/dL (8.5-10.1); Chloride 100 mmol/L (98-107); Estimated GFR 35.86 (mL/min/1.73m2); Glucose 117 mg/dL (70-100); Potassium 3.5 mmol/L (3.5-5.1); Sodium 138 mmol/L (136-145)
== END 2018-03-21 15:34 ==
LOC: NCHCN 15:14
PROVIDERS: PCP Family Medicine; Visit Provider Family Medicine
DX: N18.3 Chronic kidney disease, stage 3 (moderate) (principal)
CPT/HCPCS: 80048

== ENCOUNTER → 2018-03-24 10:59 | Outpatient (BNVA) | payer MEDICARE, BC, SELFPAY | PROVIDERS: PCP Family Medicine; Visit Provider Internal Medicine Cardiovascular Disease | DX: I50.22 Chronic systolic (congestive) heart failure (principal); I49.5 Sick sinus syndrome; I11.0 Hypertensive heart disease with heart failure; E11.9 Type 2 diabetes mellitus without complications; Z79.84 Long term (current) use of oral hypoglycemic drugs | CPT/HCPCS: 99214 ==

== ENCOUNTER 2018-03-28 16:10 | Outpatient (REF) | payer MEDICARE, BC, SELFPAY ==
[2018-03-28 18:43] LABS: Bilirubin Negative (Negative); Blood Moderate (Negative); Clarity Clear; Glucose Negative (Negative); Ketones Negative (Negative); Leukocyte Esterase Negative (Negative); Nitrite Negative (Negative); Specific Gravity 1.015 (1.005-1.025); Urobilinogen 0.2 EU/dL (Up TO 0.2)
[2018-03-28 18:57] LABS: Bacteria Negative HPF (Negative); C & S Indicated? No; Casts Negative LPF (Negative); Crystals Negative HPF (Negative); Epithelial Cells Rare HPF (Negative); Mucus Negative (Negative); WBC 0-2 HPF (0-5)
[2018-03-28 19:09] LABS: COMMENT (LAB VIEW ONLY) 35.18 mg/dL; Microalb ug/mg Crea 71.9 ug/mg Cr
== END 2018-03-28 16:30 ==
LOC: NCHCN 16:10
PROVIDERS: PCP Family Medicine; Visit Provider Family Medicine
DX: E11.9 Type 2 diabetes mellitus without complications (principal); R31.9 Hematuria, unspecified
CPT/HCPCS: 81003; 81015; 82043; 82570

== ENCOUNTER 2018-04-21 14:46 | Outpatient (REF) | payer MEDICARE, BC, SELFPAY ==
[2018-04-21 19:50] LABS: Anion Gap 10.8 mmol/L (3-11); BUN 25 mg/dL (7-18); CO2 31.2 mmol/L (21.0-32.0); CREATININE 2.69 mg/dL (0.70-1.30); Chloride 101 mmol/L (98-107); Estimated GFR 23.86 (mL/min/1.73m2); Glucose 132 mg/dL (70-100); NT-proBNP 1578 pg/mL; Potassium 3.1 mmol/L (3.5-5.1); Sodium 143 mmol/L (136-145)
== END 2018-04-21 15:06 ==
LOC: NCHCN 14:46
PROVIDERS: PCP Family Medicine; Visit Provider Family Medicine
DX: I50.1 Left ventricular failure, unspecified (principal); N18.3 Chronic kidney disease, stage 3 (moderate)
CPT/HCPCS: 80048; 83880

== ENCOUNTER → 2018-04-22 11:03 | Outpatient (BNVA) | payer MEDICARE, BC, SELFPAY | PROVIDERS: PCP Family Medicine; Referring Provider Family Medicine; Visit Provider Nurse Practitioner Gerontology | DX: R39.15 Urgency of urination (principal); N40.1 Benign prostatic hyperplasia with lower urinary tract symptoms; I13.0 Hypertensive heart and chronic kidney disease with heart failure and stage 1 through stage 4 chronic kidney disease, or unspecified chronic kidney disease; N18.3 Chronic kidney disease, stage 3 (moderate); I50.9 Heart failure, unspecified; E11.22 Type 2 diabetes mellitus with diabetic chronic kidney disease | CPT/HCPCS: 51798; 99204; 99215 ==

== ENCOUNTER 2018-05-05 16:06 | Outpatient (REF) | payer MEDICARE, BC, SELFPAY ==
[2018-05-05 19:45] LABS: Anion Gap 12.4 mmol/L (3-11); BUN 23 mg/dL (7-18); CO2 30.6 mmol/L (21.0-32.0); CREATININE 2.21 mg/dL (0.70-1.30); Calcium 9.3 mg/dL (8.5-10.1); Chloride 100 mmol/L (98-107); Estimated GFR 29.94 (mL/min/1.73m2); Glucose 153 mg/dL (70-100); Potassium 3.2 mmol/L (3.5-5.1); Sodium 143 mmol/L (136-145)
== END 2018-05-05 16:26 ==
LOC: NCHCN 16:06
PROVIDERS: PCP Family Medicine; Visit Provider Family Medicine
DX: N18.3 Chronic kidney disease, stage 3 (moderate) (principal)
CPT/HCPCS: 80048

== ENCOUNTER → 2018-05-20 10:38 | Outpatient (BNVA) | payer MEDICARE, BC, SELFPAY | PROVIDERS: PCP Family Medicine; Visit Provider Nurse Practitioner Family | DX: I48.2 Chronic atrial fibrillation (principal); I09.9 Rheumatic heart disease, unspecified; I49.5 Sick sinus syndrome; Z95.2 Presence of prosthetic heart valve; I50.22 Chronic systolic (congestive) heart failure; I11.0 Hypertensive heart disease with heart failure; E11.9 Type 2 diabetes mellitus without complications; Z45.018 Encounter for adjustment and management of other part of cardiac pacemaker | CPT/HCPCS: 93279; 99213 ==

== ENCOUNTER → 2018-05-26 13:25 | Outpatient (BNVA) | payer MEDICARE, BC, SELFPAY | PROVIDERS: PCP Family Medicine; Referring Provider Family Medicine; Visit Provider Student in an Organized Health Care Education/Training Program | DX: M25.511 Pain in right shoulder (principal) | CPT/HCPCS: 20610; 99213; 99214; J1040 ==

== ENCOUNTER 2018-06-09 05:16 | Emergency (ER) | payer MEDICARE, BC, SELFPAY ==
[2018-06-09] VITALS (21 sets, daily range): BP systolic 116–134; BP diastolic 68–89; PULSE 69–80; RESP 12–32; TEMP 36.3; O2SAT 95–99
--- NOTE | 2018-06-09 06:03 | ED.GENADUL_ITS ---
Discharge Plan Disposition Patient Disposition: HOME Condition: Improving Discharge Details Chief Complaint: GenMedical Clinical Impression: Cervical myofascial strain, History of chronic CHF Primary Care Provider: Joanne Brewster ED Provider: Dali Will Home Meds and New Rx's Prescriptions: New diazepam [Valium] 5 mg tablet 5 mg PO TID PRN (Reason: muscle spasm) Qty: 10 RF: 0 Continued ropinirole 2 mg tablet 2 mg PO QHS RF: 0 aspirin [Aspir-Low] 81 MG tablet,delayed release (DR/EC) 81 mg PO DAILY RF: 0 magnesium oxide 500 MG capsule 400 mg PO BID Qty: 1 RF: 0 amiodarone 200 MG tablet 200 mg PO DAILY RF: 0 carvedilol 25 MG tablet 25 mg PO BID Qty: 0 RF: 0 zolpidem 12.5 MG tablet,ext release multiphase 12.5 mg PO HS PRN PRNRF: 0 riboflavin (vitamin B2) [Vitamin B-2] 100 mg tablet 200 mg PO BID RF: 0 furosemide [Lasix] 40 mg tablet 40 mg PO BID RF: 0 metformin 500 MG tablet extended release 24 hr 1,000 mg PO BID RF: 0 cyclobenzaprine 10 MG tablet 10 mg PO PRN PRNRF: 0 gabapentin 600 MG tablet 600 mg PO BID RF: 0 albuterol sulfate [ProAir HFA] 8.5 GM HFA aerosol inhaler 1 puff IN Q4H PRN PRNRF: 0 cyanocobalamin (vitamin B-12) [Vitamin B-12] 1,000 mcg Tablet 1,000 mcg PO DAILY RF: 0 warfarin 5 mg Tablet See Rx Instructions .ROUTE .COMPLEX RF: 0 rosuvastatin [Crestor] 20 MG tablet 20 mg PO DAILY RF: 0 hydrocodone-acetaminophen 1 EACH tablet 1 ea PO PRN PRNRF: 0 folic acid 1 mg Tablet 1 mg PO DAILY RF: 0 fluticasone propionate [Flonase Allergy Relief] 50 mcg/actuation [place],Suspension 1 spray INTRANASAL DAILY PRNRF: 0 Discharge Instructions Instructions: Cervical Strain (ED) Additional Instructions: Alternate ice and heat to the affected area several times daily for 20 minutes at a time. Call your primary care doctor today to schedule a follow-up appointment for reevaluation. Return immediately to the emergency department with any worsening or concerning symptoms. Discharge Data Discharge Physician: Dali Will Medical Decision Making 68-year-old male who is DNR/DNI with a history of TIA, CVA, atrial fibrillation on Coumadin, diabetes, hypertension, hyperlipidemia, pacemaker who presents with right-sided neck pain since yesterday afternoon with worsening pain and distended right-sided neck veins noted this morning. Also admits to some dizzy spells yesterday but states this is chronic. Also admits to intermittent involuntary jerking and twitching of both of his hands over the past few days. Vitals within normal limits. Patient appears nontoxic. He has bilateral mildly distended/tortuous external jugular veins. There is no evidence of infection or trauma. Does not appear consistent with JVD. He does have reproducible right- sided neck pain that is worse with head movement. His presentation appears likely consistent with a muscle strain/spasm in the right cervical neck. Patient states he mainly came here due to concern of blood clot in his neck. He has no focal deficits on exam. Due to patient's age and history, will check screening labs, chest x-ray, CT head as well as CT neck with contrast. Will also give a dose of oxycodone and Valium. EKG notes a rate of 80, sinus, left bundle branch block which is seen in previous. 0700 --CT head notes a questionable minimal hyperdensity in the left MCA versus artifact. As patient has an essentially normal neurologic exam and no focal deficits, do not suspect an acute MCA infarction. Chest x-ray notes minimal interstitial edema but no focal consolidation. Patient has chronic lower extremity edema which she states is no worse than usual. He has no complaints of shortness of breath with normal oxygen saturation and respiratory rate so I do not suspect acute CHF at this time. 0730 --labs reviewed. Normal white blood cell count. INR 2.3. Normal electrolytes. Creatinine 2.3 which is patient's baseline. BNP 1610. Troponin 0.05. Patient has been 0.04 in the past and this is within normal limits. Unable to obtain a CT with IV contrast due to patient's reduced renal function. On reassessment, patient states that he recently had a cortisone injection for his right shoulder and occasionally has had pain radiation up into his right neck. He states he forgot to mention this earlier. He states the pain is still worse with movement of his head but is improved after meds given here. His presentation appears likely consistent with musculoskeletal. Discussed at length with patient that I do not see an indication for MRI brain as he has no focal deficits and he is unable to obtain an MRI due to his pacemaker and he is agreeable. Patient states he feels better and is requesting to go home. We will send home with a prescription for Valium and a few tabs of oxycodone. He is instructed to call his primary care doctor today to schedule follow-up appointment for reevaluation and to return here at any time if worse. Medical Records Medical records reviewed: Yes I reviewed the patient's medical records. Imaging Data Radiologic Study: Radiologist's impression: CT Head Without Contrast EXAM DATE/TIME: 06/09/2018 6:06 AM FINDINGS: Question minimal hyperdensity in the left MCA versus artifact Brain: Mild volume loss No hemorrhage. Mild white matter disease. No edema. Ventricles: Normal. No ventriculomegaly. Bones/joints: Unremarkable. No acute fracture. Sinuses: Air fluid level and mucosal thickening in the left maxillary sinus Mastoid air cells: Visualized mastoid air cells are unremarkable. No mastoid effusion. Soft tissues: Question minimal left occipital scalp swelling IMPRESSION: Question minimal hyperdensity in the left MCA versus artifact. If clinically concerned for acute left MCA infarction, further evaluation may be helpful No acute intracranial hemorrhage Question left maxillary sinusitis Radiologic Study #2: Radiologist's impression: XR Chest, 2 Views EXAM DATE/TIME: 06/09/2018 6:37 AM FINDINGS: Pacemaker/AICD leads grossly intact. Grossly stable cardiomediastinal silhouette accounting for differences in technique. Question minimal interstitial edema superimposed on chronic interstitial prominence. No pleural effusion or pneumothorax. The visualized osseous structures are grossly stable IMPRESSION: Questionable minimal interstitial edema No focal consolidation Lab Data Lab results reviewed: Yes I reviewed the patient's lab results. Laboratory Tests Range/Units 06/09/18 06/09/18 06/09/18 06:53 06:53 06:53 WBC (4.4-10.8) k/cumm 9.55 RBC (4.50-6.00) m/cumm 3.87 L Hgb (13.5-17.5) g/dL 12.3 L Hct (40.0-50.0) % 37.9 L MCV (80-95) fL 97.9 H MCH (27.0-33.0) pg 31.8 MCHC (32.0-36.0) g/dL 32.5 RDW (11.8-14.1) % 17.6 H Plt Count (130-400) x1000/uL 160 MPV (8.0-11.0) fL 10.2 Immature Gran % 1.2 Neutrophils % 79.3 Lymphocytes % 9.6 Monocytes % 7.6 Eosinophils % 2.1 Basophils % 0.2 Absolute Neutrophils (1.2-6.7) k/cumm 7.57 H Absolute Lymphocytes (1.2-3.4) k/cumm 0.92 L Absolute Monocytes (0.11-0.7) k/cumm 0.73 H Absolute Eosinophils (0.0-0.7) k/cumm 0.20 Absolute Basophils (0.0-0.2) k/cumm 0.02 PT (9.3-11.0) sec 23.0 H INR (0.9-1.1) 2.3 H APTT (21.0-31.4) sec 26.5 Sodium (136-145) mmol/L 137 Potassium (3.5-5.1) mmol/L 3.9 Chloride (98-107) mmol/L 98 Carbon Dioxide (21.0-32.0) mmol/L 29.6 Anion Gap (3-11) mmol/L 9.4 BUN (7-18) mg/dL 34 H Creatinine (0.70-1.30) mg/dL 2.30 H Estimated GFR/1.73 m2 (mL/min/1.73m2) 28.50 Glucose (70-100) mg/dL 229 H Calcium (8.5-10.1) mg/dL 8.4 L Magnesium (1.8-2.4) mg/dL 2.3 Total Bilirubin (0.2-1.0) mg/dL 1.7 H AST (15-37) U/L 38 H ALT (12-78) U/L 57 Alkaline Phosphatase (46-116) U/L 166 H Troponin I (0.00-0.06) ng/mL 0.05 NT-Pro-B Natriuret Pep ( - 299) pg/mL 1610 H Total Protein (6.4-8.2) g/dL 6.8 Albumin (3.4-5.0) g/dL 3.7 ECG Data Attestation: I personally reviewed and interpreted this ECG (s) as follows: Interpretation: Rate of 80, sinus, first-degree block. Left bundle branch block. QTc 563. QRS 174. HPI General Mode of arrival: ambulatory . Date/Time Provider Initiated Documentation: 06/09/18 05:29 . Limitations to Documentation: no limitations . Information obtained by: patient . HPI Narrative: Patient is a 68-year-old male who is DNR/DNI with a history of diabetes, TIA, CVA, CHF, hypertension, atrial fibrillation, hyperlipidemia, mitral valve replacement x2, pacemaker who presents with right-sided neck pain since yesterday afternoon and worsening pain and distended right-sided neck pain since this morning. Patient states he was standing yesterday when he felt what seemed like a muscle strain in his right side of his neck. He states the pain was worse with movement of his head. He states he had the pain throughout the night and then approximately 1 hour prior to arrival the pain became more intense and he observe the area and noticed that it appeared that the neck veins are more distended. Patient states he is most concerned about a blood clot in his neck. Patient denies any radiation of pain to his arm or head. He states the pain is mainly worse when he moves his head to the left and slightly improved when he turns his head to the right. Patient states he has been seeing palliative care due to a fall recently in which he has difficulty with ambulation at home in which he had required home health for some time. Patient states that he has a history of chronic dizziness and felt some dizziness yesterday afternoon but this is not unusual for him. He also states for the last few days he has noticed that occasionally while sitting at his computer he has bilateral twitching of his arms. He denies any known fever, visual changes, headache, chest pain, shortness of breath, nausea, vomiting, diarrhea or abdominal pain. Related Data Home Medications Medication Instructions Recorded Confirmed zolpidem 12.5 mg PO HS PRN PRN 06/27/12 06/09/18 carvedilol 25 mg PO BID #0 07/02/12 06/09/18 aspirin [Aspir-Low] 81 mg PO DAILY tab-cap 09/18/12 06/09/18 magnesium oxide 400 mg PO BID #1 09/18/12 06/09/18 metformin 1,000 mg PO BID 06/28/13 06/09/18 cyclobenzaprine 10 mg PO PRN PRN 02/23/14 06/09/18 amiodarone 200 mg PO DAILY tab-cap 09/10/14 06/09/18 rosuvastatin [Crestor] 20 mg PO DAILY 03/29/16 06/09/18 albuterol sulfate [ProAir HFA] 1 puff IN Q4H PRN PRN 06/03/17 06/09/18 gabapentin 600 mg PO BID 06/03/17 06/09/18 hydrocodone-acetaminophen 1 ea PO PRN PRN 09/25/17 06/09/18 riboflavin (vitamin B2) 100 mg 200 mg PO BID tab 12/04/17 06/09/18 tablet cyanocobalamin (vitamin B-12) 1,000 mcg PO DAILY 02/16/18 06/09/18 [Vitamin B-12] warfarin See Rx Instructions .ROUTE .COMPLEX 02/16/18 06/09/18 ropinirole 2 mg tablet 2 mg PO QHS 03/24/18 06/09/18 furosemide 40 mg tablet 40 mg PO BID tab 06/03/18 06/09/18 diazepam [Valium] 5 mg PO TID PRN #10 tab 06/09/18 fluticasone propionate [Flonase 1 spray INTRANASAL DAILY PRN 06/09/18 06/09/18 Allergy Relief] folic acid 1 mg PO DAILY 06/09/18 06/09/18 Previous Rx's Medication Instructions Recorded carvedilol 25 mg PO BID #0 07/02/12 diazepam [Valium] 5 mg PO TID PRN #10 tab 06/09/18 Allergies Allergy/AdvReac Type Severity Reaction Status Date / Time dofetilide Allergy Unknown Unverified 06/09/18 05:24 General Stated Complaint: GenMedical SUELLEN: 3 Review of Systems Review of Systems All systems reviewed & are unremarkable except as noted in HPI and below Constitutional Reports as per HPI, Denies chills and Denies fever(s) Eyes Denies blurry vision ENT Denies dizziness, Denies sore throat and Denies throat swelling Cardiovascular Denies chest pain and Denies dyspnea Respiratory Denies cough and Denies dyspnea Gastrointestinal Denies abdominal pain, Denies diarrhea and Denies vomiting Genitourinary Denies hematuria and Denies dysuria Musculoskeletal Denies back pain, Denies numbness and Reports other (R sided neck pain ) Integumentary/Breasts Denies lesions and Denies rash Neurologic Denies dizziness, Denies focal weakness and Denies numbness Allergic/Immunologic Denies throat swelling [facility] Medical History Atrial fibrillation BPH (benign prostatic hyperplasia) Benign hypertension Cervical radiculopathy Chronic congestive heart failure Depression Diabetes mellitus Diabetes mellitus associated with genetic syndrome Diverticulosis H/O mitral valve replacement Hyperlipidemia Hypertension Lumbar back pain Mitral valve disorder Neck pain Obstructive sleep apnea Osteoarthritis Restless leg syndrome chronic anticoagulation Surgical History Fusion CMC joint (01/19/09) Pacemaker (05/22/16) Tonsillectomy and adenoidectomy Trigger Finger release (01/02/11) Trigger Finger release (04/29/12) Vasectomy mitral valve replacement resection arthroplasty right thumb (01/17/09) Family History Mother Obesity Stroke Father Diabetes COPD (chronic obstructive pulmonary disease) Brother Heart disease Hypertension Brother Heart disease Myocardial infarct ICD (implantable cardioverter-defibrillator) battery depletion Son No problems noted. Son Asperger's disorder Anxiety ADHD Social History Smoking/Tobacco Use Status: Former Tobacco Use Alcohol Intake: current Alcohol type: beer Details: drank to excess for about 2 years after his in Jan 2013 Drug use: Current Sobriety Substance use type: does not use Adopted: No Caregiver/Support person: Yes (lives with son w/ aspergers) Details: second son comes to home to help occassionally. in charge of finances Household members: children Housing: house Number of Children: 2 Education Level: college Do you need help understanding health information?: Rarely current occupation: retired Sexually active: No What is your relationship status?: How often do you talk on the phone with friends or family?: once per week How often do you get together with friends or relatives?: three or more times per week Panel score (0-1 are the most socially isolated patients): 1 What type of physical activity do you participate in: walking, irregular exercise and occasional exercise Duration: < 15 minutes/day Agree to transfusion: Yes Seatbelt use: always Do you feel safe at home: Yes Do you feel safe in your relationship?: Yes Would you like helpful sources: Yes Additional Social history: would like to find out IF his son, Rick, could be paid to help him prepare meals, get dressed, etc. Rick already does this for Sathya, but if he could get paid to do so, it would help him. Rick is on SSDI for his Aspergers. Exam Const General: cooperative and healthy appearing Orientation: alert and awake HENMT Head: normal to inspection Ears: hearing grossly normal bilaterally, external ears normal and TM's normal bilaterally General nose exam: external nose normal Face and sinus: normal facial exam Mouth: oral mucosae normal Teeth and gingiva: dentition normal Throat: posterior oropharynx normal Eyes General: appearance normal, both eyes and all related structures Eyelids: eyelids normal Pupils: PERRL EOM: EOM intact bilaterally Neck Neck: normal visual inspection and other (Mildly tortuous and distended bilateral external jugular veins.) Lymphatic: no lymphadenopathy noted Chest Chest: normal inspection of the chest Resp Effort & Inspection: normal respiratory effort and able to speak in complete sentences Auscultation: clear to auscultation bilaterally Cardio Rate: regular rate Rhythm: regular rhythm GI Inspection: normal to inspection Palpation: soft, not firm, no guarding, no hepatosplenomegaly, no masses and nontender Auscultation: normal bowel sounds Back/Spine/Pelvis Back: no CVA tenderness Cervical Spine: No cervical spinal tenderness and other Thoracic/Lumbar Spine: No thoracic spinal tenderness and No lumbar spinal tenderness Other: Reproducible pain on right side of neck with range of motion of head, and worse with rotation of head and side bending to left side. Skin General skin exam: no rashes or lesions noted Neuro General: alert and awake Cranial Nerves: CN's II-XI intact bilaterally Cognition: normal cognition Speech: speech normal Gait: normal gait Motor: muscle tone normal throughout and strength 5/5 throughout Sensory Exam: no sensory deficits noted Extrem General: normal to inspection, full ROM and normal capillary refill Psych Appearance: grossly normal Mental Status: mental status grossly normal Speech and Movement: speech and movement normal Affect: normal affect Thought Process: normal Course Vital Signs Pulse Oximetry 97 06/09/18 05:14 Temperature 97.3 F L 06/09/18 05:19 Temperature Source Skin 06/09/18 05:19 Pulse 80 06/09/18 05:19 Pulse 79 06/09/18 05:20 Respiratory Rate 22 06/09/18 05:54 Respiratory Effort 06/09/18 05:54 Respiratory Depth Normal 06/09/18 05:54 Respiratory Pattern Normal 06/09/18 05:54 Blood Pressure 131/79 06/09/18 05:19 Blood Pressure Mean 89 06/09/18 05:15 Blood Pressure Position Sitting 06/09/18 05:19 Pulse Oximetry 99 06/09/18 05:20 Oxygen Delivery Method Room Air 06/09/18 05:19 Oxygen Flow Rate 0 06/09/18 05:19 Pain Level 4 06/09/18 05:19
--- NOTE | 2018-06-09 06:30 | DI.CT_ITS ---
SYMPTOMS/DIAGNOSIS: DIZZINESS, HAND TWITCHING, H/O MULTIPLE TRANSIENT ISCHEMIC ATTACKS, ? ACUTE CEREBROVASCULAR ACCIDENT CT BRAIN: Noncontrast examination was performed. The ventricles and sulci are consistent with the patient's age. No findings to suggest an acute intracranial hemorrhage, midline shift or mass effect are identified. There is near-complete opacification of the left maxillary sinus. The remaining visualized paranasal sinuses are clear. The mastoid air cells are well pneumatized. The calvarium is intact. IMPRESSION: No definite evidence of an acute infarct. If there is continued clinical concern, an MRI should be considered for further evaluation.
--- NOTE | 2018-06-09 06:35 | DI.RAD_ITS ---
SYMPTOMS/DIAGNOSIS: DISTENDED NECK VEIN, ? CONGESTIVE HEART FAILURE CHEST X-RAY, FRONTAL AND LATERAL VIEWS: Comparison is 08/20/17. The heart is enlarged. The pacing wires are stable in position. Sternal wires are in place. No focal consolidating infiltrates, effusions or pneumothoraces are identified. Pulmonary vasculature appears stable. IMPRESSION: Cardiomegaly. No definite acute pulmonary process.
--- NOTE | 2018-06-09 06:38 | DI.VRAD_ITS ---
EXAM: CT Head Without Contrast EXAM DATE/TIME: 06/09/2018 6:06 AM CLINICAL HISTORY: 68 years old, male; Signs and symptoms; Dizziness and other: Left hand twitching; Patient HX: Dizziness, and hand twitching; Additional info: HX multiple tias over 3 or 4 years TECHNIQUE: Imaging protocol: Axial computed tomography images of the head/brain without contrast. Coronal and sagittal reformatted images were created and reviewed. Radiation optimization: All CT scans at this facility use at least one of these dose optimization techniques: automated exposure control; mA and/or kV adjustment per patient size (includes targeted exams where dose is matched to clinical indication); or iterative reconstruction. Other technique: STROKE PROTOCOL was implemented. COMPARISON: CT HEAD WITHOUT CONTRAST 03/15/2017 1:11 PM FINDINGS: Question minimal hyperdensity in the left MCA versus artifact Brain: Mild volume loss No hemorrhage. Mild white matter disease. No edema. Ventricles: Normal. No ventriculomegaly. Bones/joints: Unremarkable. No acute fracture. Sinuses: Air fluid level and mucosal thickening in the left maxillary sinus Mastoid air cells: Visualized mastoid air cells are unremarkable. No mastoid effusion. Soft tissues: Question minimal left occipital scalp swelling IMPRESSION: Question minimal hyperdensity in the left MCA versus artifact. If clinically concerned for acute left MCA infarction, further evaluation may be helpful No acute intracranial hemorrhage Question left maxillary sinusitis ASSESSMENT: ASPECTS ([facility] Stroke Program Early CT Score) is 10. Dictated and Authenticated by: Garrett Azar MD. Ordering:NAOMIE Mcnally MD
--- NOTE | 2018-06-09 06:42 | DI.VRAD_ITS ---
EXAM: XR Chest, 2 Views EXAM DATE/TIME: 06/09/2018 6:37 AM CLINICAL HISTORY: 68 years old, male; Signs and symptoms; Other: Distended neck veins, R/O chf; Additional info: HX multiple tias over 3 or 4 years TECHNIQUE: Imaging protocol: XR of the chest, 2 views. COMPARISON: CR XR CHEST 2V PA LATERAL 11/25/2017 5:59 AM FINDINGS: Pacemaker/AICD leads grossly intact. Grossly stable cardiomediastinal silhouette accounting for differences in technique. Question minimal interstitial edema superimposed on chronic interstitial prominence. No pleural effusion or pneumothorax. The visualized osseous structures are grossly stable IMPRESSION: Questionable minimal interstitial edema No focal consolidation Dictated and Authenticated by: Garrett Azar MD. Ordering:NAOMIE Mcnally MD
[2018-06-09] MEDS: diazePAM 5 MG TAB PO (06:49)
[2018-06-09] MEDS: oxyCODONE 5 MG TAB PO (06:49)
[2018-06-09 06:59] LABS: Abs Immature Grans 0.11 k/cumm (0.0-0.09); Absolute Basophil Count 0.02 k/cumm (0.0-0.2); Absolute Lymphocyte Count 0.92 k/cumm (1.2-3.4); Absolute Monocyte Count 0.73 k/cumm (0.11-0.7); Absolute Neutrophil Count 7.57 k/cumm (1.2-6.7); Basophils % 0.2; Eosinophils % 2.1; HCT 37.9 % (40.0-50.0); HGB 12.3 g/dL (13.5-17.5); Immature Grans % 1.2; Lymphocytes % 9.6; Mean Corp. HGB Concentration 32.5 g/dL (32.0-36.0); Mean Corpuscular Hemoglobin 31.8 pg (27.0-33.0); Mean Corpuscular Volume 97.9 fL (80-95); Mean Platelet Volume 10.2 fL (8.0-11.0); Monocytes % 7.6; Neutrophils % 79.3; Platelet Count 160 x1000/uL (130-400); RBC 3.87 m/cumm (4.50-6.00); RBC Distribution Width 17.6 % (11.8-14.1); White Blood Cell Count 9.55 k/cumm (4.4-10.8)
[2018-06-09 07:10] LABS: INR 2.3 (0.9-1.1); PTT Activated 26.5 sec (21.0-31.4)
[2018-06-09 07:21] LABS: ALT 57 U/L (12-78); AST 38 U/L (15-37); Albumin 3.7 g/dL (3.4-5.0); Alkaline Phosphatase 166 U/L (46-116); Anion Gap 9.4 mmol/L (3-11); BUN 34 mg/dL (7-18); Bilirubin, Total 1.7 mg/dL (0.2-1.0); CO2 29.6 mmol/L (21.0-32.0); Calcium 8.4 mg/dL (8.5-10.1); Chloride 98 mmol/L (98-107); Glucose 229 mg/dL (70-100); Magnesium 2.3 mg/dL (1.8-2.4); NT-proBNP 1610 pg/mL; Potassium 3.9 mmol/L (3.5-5.1); Sodium 137 mmol/L (136-145); Total Protein 6.8 g/dL (6.4-8.2); Troponin I 0.05 ng/mL (0.00-0.06)
[2018-06-09] MEDS: oxyCODONE 5 MG TAB 15 MG PO (07:50)
== END 2018-06-09 07:57 | disposition home or self-care (01) ==
PROVIDERS: Emergency Provider Physician Assistant; PCP Family Medicine
DX: S16.1XXA Strain of muscle, fascia and tendon at neck level, initial encounter (principal); I50.9 Heart failure, unspecified; I11.9 Hypertensive heart disease without heart failure; I48.91 Unspecified atrial fibrillation; Z79.01 Long term (current) use of anticoagulants; Z79.84 Long term (current) use of oral hypoglycemic drugs; Z95.1 Presence of aortocoronary bypass graft
CPT/HCPCS: 36415; 80053; 99284; 70450; 71046; 83735; 83880; 84484; 85025; 85610; 85730

== ENCOUNTER 2018-06-12 15:52 | Outpatient (REF) | payer MEDICARE, BC, SELFPAY ==
[2018-06-12 19:30] LABS: Anion Gap 10.1 mmol/L (3-11); BUN 34 mg/dL (7-18); CO2 27.9 mmol/L (21.0-32.0); CREATININE 2.28 mg/dL (0.70-1.30); Calcium 9.2 mg/dL (8.5-10.1); Chloride 102 mmol/L (98-107); Estimated GFR 28.79 (mL/min/1.73m2); Glucose 198 mg/dL (70-100); Magnesium 2.4 mg/dL (1.8-2.4); Potassium 4.2 mmol/L (3.5-5.1); Sodium 140 mmol/L (136-145); TSH (W/Ref FT4) 5.25 uIU/mL (0.358-3.74)
[2018-06-12 19:31] LABS: Folate > 20.0 ng/mL (8.6-20.0)
[2018-06-12 19:59] LABS: Hemoglobin A1C 7.1 % (4.5-6.2)
[2018-06-12 20:10] LABS: FREE T4 1.07 ng/dL (0.76-1.46)
== END 2018-06-12 16:12 ==
LOC: NCHCN 15:52
PROVIDERS: PCP Family Medicine; Visit Provider Family Medicine
DX: E11.9 Type 2 diabetes mellitus without complications (principal); R94.6 Abnormal results of thyroid function studies; D52.9 Folate deficiency anemia, unspecified; N18.3 Chronic kidney disease, stage 3 (moderate)
CPT/HCPCS: 80048; 82746; 83036; 83735; 84439; 84443

== ENCOUNTER 2018-06-19 16:33 | Outpatient (REF) | payer MEDICARE, BC, SELFPAY ==
[2018-06-19 19:11] LABS: Anion Gap 12.8 mmol/L (3-11); BUN 26 mg/dL (7-18); CO2 27.2 mmol/L (21.0-32.0); Calcium 8.9 mg/dL (8.5-10.1); Chloride 100 mmol/L (98-107); Glucose 141 mg/dL (70-100); Sodium 140 mmol/L (136-145)
== END 2018-06-19 16:53 ==
LOC: NCHCN 16:33
PROVIDERS: PCP Family Medicine; Visit Provider Family Medicine
DX: N18.3 Chronic kidney disease, stage 3 (moderate) (principal); R94.6 Abnormal results of thyroid function studies; R60.0 Localized edema
CPT/HCPCS: 80048

== ENCOUNTER 2018-06-25 19:36 | Outpatient (REF) | payer MEDICARE, BC, SELFPAY ==
[2018-06-25 20:23] LABS: Anion Gap 11.8 mmol/L (3-11); BUN 33 mg/dL (7-18); CO2 28.2 mmol/L (21.0-32.0); CREATININE 2.34 mg/dL (0.70-1.30); Chloride 100 mmol/L (98-107); Estimated GFR 27.94 (mL/min/1.73m2); Glucose 146 mg/dL (70-100); Potassium 3.9 mmol/L (3.5-5.1); Sodium 140 mmol/L (136-145)
== END 2018-06-25 19:56 ==
LOC: NCHCN 19:36
PROVIDERS: PCP Family Medicine; Visit Provider Family Medicine
DX: N18.3 Chronic kidney disease, stage 3 (moderate) (principal); R94.6 Abnormal results of thyroid function studies; R60.0 Localized edema
CPT/HCPCS: 80048

== ENCOUNTER 2018-07-03 18:08 | Outpatient (REF) | payer MEDICARE, BC, SELFPAY ==
[2018-07-03 20:10] LABS: HCT 39.5 % (40.0-50.0); Mean Corp. HGB Concentration 32.9 g/dL (32.0-36.0); Mean Corpuscular Hemoglobin 32.4 pg (27.0-33.0); Mean Corpuscular Volume 98.5 fL (80-95); Mean Platelet Volume 10.1 fL (8.0-11.0); Platelet Count 224 x1000/uL (130-400); RBC 4.01 m/cumm (4.50-6.00)
[2018-07-03 21:24] LABS: ALT 35 U/L (12-78); AST 34 U/L (15-37); Albumin 3.8 g/dL (3.4-5.0); Alkaline Phosphatase 128 U/L (46-116); Anion Gap 11.6 mmol/L (3-11); BUN 28 mg/dL (7-18); Bilirubin, Total 1.3 mg/dL (0.2-1.0); CO2 28.4 mmol/L (21.0-32.0); CREATININE 2.86 mg/dL (0.70-1.30); Calcium 8.7 mg/dL (8.5-10.1); Chloride 100 mmol/L (98-107); Estimated GFR 22.17 (mL/min/1.73m2); Glucose 163 mg/dL (70-100); Sodium 140 mmol/L (136-145); Total Protein 6.7 g/dL (6.4-8.2)
== END 2018-07-03 18:28 ==
LOC: NCHCN 18:08
PROVIDERS: PCP Family Medicine; Visit Provider Family Medicine
DX: N18.3 Chronic kidney disease, stage 3 (moderate) (principal); I10 Essential (primary) hypertension; I50.1 Left ventricular failure, unspecified
CPT/HCPCS: 80053; 85027

== ENCOUNTER → 2018-09-01 14:14 | Outpatient (BNVA) | payer MEDICARE, BC, SELFPAY | PROVIDERS: PCP Family Medicine; Referring Provider Family Medicine; Visit Provider Student in an Organized Health Care Education/Training Program | DX: M75.81 Other shoulder lesions, right shoulder (principal); M75.82 Other shoulder lesions, left shoulder; M19.011 Primary osteoarthritis, right shoulder; M19.012 Primary osteoarthritis, left shoulder | CPT/HCPCS: 20610; 99214; J1040 ==

== ENCOUNTER 2018-09-02 09:52 | Outpatient (CLI) | payer MEDICARE, BC, SELFPAY ==
[2018-09-02 11:12] LABS: Hemoglobin A1C 6.6 % (4.5-6.2)
[2018-09-02 11:13] LABS: Anion Gap 13.1 mmol/L (3-11); BUN 28 mg/dL (7-18); CO2 24.9 mmol/L (21.0-32.0); CREATININE 2.32 mg/dL (0.70-1.30); Calcium 8.8 mg/dL (8.5-10.1); Chloride 102 mmol/L (98-107); Estimated GFR 28.22 (mL/min/1.73m2); Glucose 131 mg/dL (70-100); Potassium 4.3 mmol/L (3.5-5.1); Sodium 140 mmol/L (136-145)
== END 2018-09-02 10:12 ==
PROVIDERS: PCP Family Medicine; Visit Provider Family Medicine
DX: E11.9 Type 2 diabetes mellitus without complications (principal); N18.3 Chronic kidney disease, stage 3 (moderate)
CPT/HCPCS: 36415; 80048; 83036

== ENCOUNTER 2018-09-18 01:29 | Outpatient (CLI) | payer MEDICARE, BC, SELFPAY ==
--- NOTE | 2018-09-18 07:14 | DI.COMBO_ITS ---
SYMPTOM/DIAGNOSIS: TENDINITIS LT ROTATOR CUFF, M75.82, LT SHOULDER WEAKNESS AND PAIN, M75.82 FLUOROSCOPY: Fluoroscopy Time: 11.7 seconds Fluoroscopy was utilized by Dr. Dennison during left shoulder injection. Hard copy shows intra-articular injection of the glenohumeral joint. LEFT SHOULDER CT ARTHROGRAM: CT arthrogram was performed following intra-articular injection performed by Dr. Dennison. The visualized portions of the left lung are clear. There is marked loss of the articular cartilage of the humeral head with bone on bone appearance of the glenohumeral joint. The humeral head abuts against the inferior surface of the acromion. There is displacement of subscapularis, supraspinatus and infraspinatus secondary to the degenerative changes and superior translation of the humeral head. There appears to be a full thickness supraspinatus and infraspinatus tear. Marked fatty replacement of infraspinatus and to a lesser degree, subscapularis and supraspinatus noted. CONCLUSION: End stage DJD, massive rotator cuff tear. Limited examination.
--- NOTE | 2018-09-18 09:57 | W.PROCNOTE ---
Date of service: 09/18/18 Time of Service: 09:57 Procedure Note Date of procedure: 09/18/18 Procedure: Left Shoulder Injection Surgeon/Proceduralist/Physician: Barak Dennison Procedure Diagnosis: Left Rotator Cuff Tear Procedure Indications: Sathya has had persistent pain of the LEFT shoulder. Noninvasive measures have been tried. To serve as an arthrogram for CT, an injection under fluoroscopy was recommended. I had discussed the risks of the procedure and the patient elected to proceed. Procedure Description: Sathya was greeted in the flouroscopy room. The correct side was identified and the consent was reviewed with the patient and signed. The patient was then placed in the supine position on the fluoroscopy table. The LEFT shoulder was then prepped with Chloraprep. The anterior injection starting point was identiifed by bony landmarks and fluoroscopy. The skin and soft tissue in the tract of the injection was anesthetized with 1% Lidocaine. A spinal needle was then inserted deep into the shoulder joint at the level of the recess between the glenoid and superior humeral head. A small amount of Omnipaque solution was injected to confirm intraarticular placement. Once confirmed, the shoulder was injected with 8cc of 0.5% Bupivicaine and 8cc of Omnipaquel. A bandaid was placed on the injection site. The patient tolerated the procedure well and was taken to the CT scanner..
[2018-09-18] MEDS: Omnipaque 300 MG/ML 10 ML BTL IJ (10:35)
[2018-09-18] MEDS: Bupivacaine 0.5% Pres-Free 10 ML VIAL 8 ML IJ (10:36)
[2018-09-18] MEDS: methylPREDNISolone ACETATE 80 MG/ML VIAL IM (10:37)
== END 2018-09-18 01:49 ==
PROVIDERS: PCP Family Medicine; Visit Provider Student in an Organized Health Care Education/Training Program
DX: M75.82 Other shoulder lesions, left shoulder (principal); M75.102 Unspecified rotator cuff tear or rupture of left shoulder, not specified as traumatic; M25.512 Pain in left shoulder
CPT/HCPCS: 20610; 23350; 23550; 77002; 73200; J1040

== ENCOUNTER 2018-09-18 15:26 | Outpatient (REF) | payer MEDICARE, BC, SELFPAY ==
[2018-09-18 18:41] LABS: Anion Gap 13.8 mmol/L (3-11); BUN 40 mg/dL (7-18); CO2 29.2 mmol/L (21.0-32.0); CREATININE 2.75 mg/dL (0.70-1.30); Calcium 9.4 mg/dL (8.5-10.1); Chloride 101 mmol/L (98-107); Estimated GFR 23.19 (mL/min/1.73m2); Glucose 198 mg/dL (70-100); Potassium 4.2 mmol/L (3.5-5.1); Sodium 144 mmol/L (136-145); TSH (W/Ref FT4) 3.42 uIU/mL (0.36-3.74)
== END 2018-09-18 15:46 ==
LOC: NCHCN 15:26
PROVIDERS: PCP Family Medicine; Visit Provider Family Medicine
DX: N18.3 Chronic kidney disease, stage 3 (moderate) (principal); I10 Essential (primary) hypertension; E11.9 Type 2 diabetes mellitus without complications
CPT/HCPCS: 80048; 84443

== ENCOUNTER → 2018-10-21 11:58 | Outpatient (BNVA) | payer MEDICARE, BC, SELFPAY | PROVIDERS: PCP Family Medicine; Visit Provider Nurse Practitioner Family | DX: I48.91 Unspecified atrial fibrillation (principal); I09.9 Rheumatic heart disease, unspecified; Z45.02 Encounter for adjustment and management of automatic implantable cardiac defibrillator; I50.22 Chronic systolic (congestive) heart failure; I11.0 Hypertensive heart disease with heart failure; E11.9 Type 2 diabetes mellitus without complications; Z79.84 Long term (current) use of oral hypoglycemic drugs | CPT/HCPCS: 93283; 99024 ==

== ENCOUNTER → 2018-11-27 11:35 | Outpatient (BNVA) | payer MEDICARE, BC, SELFPAY | PROVIDERS: PCP Family Medicine; Referring Provider Family Medicine; Visit Provider Student in an Organized Health Care Education/Training Program | DX: M75.81 Other shoulder lesions, right shoulder (principal); M19.011 Primary osteoarthritis, right shoulder; I10 Essential (primary) hypertension; E11.9 Type 2 diabetes mellitus without complications | CPT/HCPCS: 20610; 99213; J1040 ==

== ENCOUNTER 2018-11-28 09:30 | Emergency (ER) | payer MEDICARE, BC, SELFPAY ==
[2018-11-28 09:35] VITALS: BP 127/73; PULSE 71; RESP 20; TEMP 36.4; O2SAT 97
[2018-11-28 10:35] LABS: Abs Immature Grans 0.07 k/cumm (0.0-0.09); Absolute Basophil Count 0.04 k/cumm (0.0-0.2); Absolute Eosinophil Count 0.23 k/cumm (0.0-0.7); Absolute Lymphocyte Count 0.92 k/cumm (1.2-3.4); Absolute Monocyte Count 1.04 k/cumm (0.11-0.7); Absolute Neutrophil Count 8.19 k/cumm (1.2-6.7); Basophils % 0.4; Eosinophils % 2.2; HCT 38.1 % (40.0-50.0); HGB 12.5 g/dL (13.5-17.5); Immature Grans % 0.7; Lymphocytes % 8.8; Mean Corp. HGB Concentration 32.8 g/dL (32.0-36.0); Mean Corpuscular Hemoglobin 30.9 pg (27.0-33.0); Mean Corpuscular Volume 94.3 fL (80-95); Mean Platelet Volume 9.2 fL (8.0-11.0); Monocytes % 9.9; Platelet Count 261 x1000/uL (130-400); RBC 4.04 m/cumm (4.50-6.00); RBC Distribution Width 17.2 % (11.8-14.1); White Blood Cell Count 10.49 k/cumm (4.4-10.8)
[2018-11-28 10:48] LABS: ALT 21 U/L (16-63); AST 24 U/L (15-37); Albumin 3.7 g/dL (3.4-5.0); Alkaline Phosphatase 139 U/L (46-116); BUN 34 mg/dL (7-18); Bilirubin, Total 0.9 mg/dL (0.2-1.0); CREATININE 2.47 mg/dL (0.70-1.30); Calcium 8.6 mg/dL (8.5-10.1); Chloride 100 mmol/L (98-107); Estimated GFR 26.25 (mL/min/1.73m2); Glucose 228 mg/dL (70-100); Lipase 216 U/L (73-393); Sodium 139 mmol/L (136-145); Total Protein 7.3 g/dL (6.4-8.2)
[2018-11-28 10:50] VITALS: BP 123/66; PULSE 67; TEMP 36.6; O2SAT 95
[2018-11-28 10:50] LABS: INR 3.1 (0.9-1.1); PTT Activated 33.6 sec (21.0-31.4); Prothrombin Time 30.1 sec (9.3-11.0)
--- NOTE | 2018-11-28 10:53 | ED.GENADUL_ITS ---
Discharge Plan Disposition Patient Disposition: HOME Condition: Improving Discharge Details Chief Complaint: Nausea/Vomit/Diar Clinical Impression: Hematemesis/vomiting blood Primary Care Provider: Joanne Brewster ED Provider: Yang Platt Home Meds and New Rx's Prescriptions: Continued ropinirole 2 mg tablet 2 mg PO QHS RF: 0 aspirin [Aspir-Low] 81 MG tablet,delayed release (DR/EC) 81 mg PO DAILY RF: 0 magnesium oxide 500 MG capsule 500 mg PO BID Qty: 1 RF: 0 amiodarone 200 MG tablet 200 mg PO DAILY RF: 0 carvedilol 25 MG tablet 25 mg PO BID Qty: 0 RF: 0 zolpidem 12.5 MG tablet,ext release multiphase 12.5 mg PO HS PRN PRNRF: 0 riboflavin (vitamin B2) [Vitamin B-2] 100 mg tablet 200 mg PO BID RF: 0 furosemide [Lasix] 40 mg tablet 40 mg PO BID RF: 0 metformin 500 MG tablet extended release 24 hr 1,000 mg PO BID RF: 0 gabapentin 600 MG tablet 600 mg PO BID RF: 0 albuterol sulfate [ProAir HFA] 8.5 GM HFA aerosol inhaler 1 puff IN Q4H PRN PRNRF: 0 cyanocobalamin (vitamin B-12) [Vitamin B-12] 1,000 mcg Tablet 1,000 mcg PO DAILY RF: 0 warfarin 5 mg Tablet See Rx Instructions .ROUTE .COMPLEX RF: 0 rosuvastatin [Crestor] 20 MG tablet 20 mg PO DAILY RF: 0 folic acid 1 mg Tablet 1 mg PO DAILY RF: 0 fluticasone propionate [Flonase Allergy Relief] 50 mcg/actuation [place],Suspension 1 spray INTRANASAL DAILY PRNRF: 0 spironolactone 25 mg Tablet 25 mg PO DAILY RF: 0 Discharge Instructions Instructions: Acute Nausea and Vomiting (ED), Hematemesis (ED) Additional Instructions: Continue to take your medications as prescribed and follow-up with your primary care provider preferably next week for recheck of your INR. Return immediately to the emergency department for any new or significant worsening of symptoms. You may slowly advance your diet as tolerated. Referrals: Joanne Brewster MD [Primary Care Provider] - 1 week Discharge Data Discharge Date/Time-TO BE ENTERED AT DEPARTURE: 11/28/18 11:41 Medical Decision Making Patient presenting to the emergency department for chief complaint of vomiting blood. Patient reports approximately at 2 AM he was up on his computer and had single episode of vomiting that had blood in it but was not completely blood. Patient has had no further abdominal pain, nausea vomiting since that episode. Patient has noted occasionally when he spits up phlegm that there is slight bloody streaks otherwise denies any other bleeding type episodes. Patient does report that yesterday evening he had been out with friends and had significantly more alcohol than he typically has and around 11 PM after being out had eaten some heavy foods such as webster and duct breast. He thinks that this may have contributed to his episode of vomiting and now feels fine. His biggest concern is the bleeding that was noted. He does state though that it was dark in the house yesterday evening so he is unsure if blood in vomit was more brown or bloody. Patient is on warfarin due to chronic A. fib and congestive heart failure which he denies any symptoms of chest pain shortness of breath worse than baseline or other symptoms. Physical exam is unremarkable. Given patient's medical history plan to check labs. Patient is otherwise stable, not tachycardic or hypotensive so I do not feel that any emergent interventions are needed. Review of labs show anemia which is at or near patient's baseline, INR of 3.1, otherwise nondiagnostic labs which appear to be close to patient's baseline. Patient reassessed and continued to remain asymptomatic and even stated now the blood-tinged phlegm that he had been having is now completely back to normal. Patient is requesting discharge home. I feel that this is reasonable given benign work-up and INR within expected range. Return precautions were discussed otherwise patient was placed upon follow-up list to follow-up with primary care provider preferably in the next week. After discussion of diagnosis and plan of care patient has no further needs, questions, or concerns and states clear understanding to return to the emergency department for any worsening symptoms. HPI General Mode of arrival: ambulatory . Date/Time Provider Initiated Documentation: 11/28/18 09:36 . Limitations to Documentation: no limitations . Information obtained by: patient and RN notes reviewed . History of Present Illness 68 year old M presents to the emergency department with the chief complaint of Vomiting blood, Quality is described as other (Denies pain or discomfort), Patient started experiencing this hour(s) (7) and it has been other (Occurred once). Eating worsens symptoms . Patient notes no other symptoms.. Patient did receive the following treatments prior to arrival, none Related Data Home Medications Medication Instructions Recorded Confirmed zolpidem 12.5 mg PO HS PRN PRN 06/27/12 11/28/18 carvedilol 25 mg PO BID #0 07/02/12 11/28/18 aspirin [Aspir-Low] 81 mg PO DAILY tab-cap 09/18/12 11/28/18 magnesium oxide 500 mg PO BID #1 09/18/12 11/28/18 metformin 1,000 mg PO BID 06/28/13 11/28/18 amiodarone 200 mg PO DAILY tab-cap 09/10/14 11/28/18 rosuvastatin [Crestor] 20 mg PO DAILY 03/29/16 11/28/18 albuterol sulfate [ProAir HFA] 1 puff IN Q4H PRN PRN 06/03/17 11/27/18 gabapentin 600 mg PO BID 06/03/17 11/28/18 riboflavin (vitamin B2) 100 mg 200 mg PO BID tab 12/04/17 11/28/18 tablet cyanocobalamin (vitamin B-12) 1,000 mcg PO DAILY 02/16/18 11/28/18 [Vitamin B-12] warfarin See Rx Instructions .ROUTE .COMPLEX 02/16/18 11/28/18 ropinirole 2 mg tablet 2 mg PO QHS 03/24/18 11/28/18 furosemide 40 mg tablet 40 mg PO BID tab 06/03/18 11/28/18 fluticasone propionate [Flonase 1 spray INTRANASAL DAILY PRN 06/09/18 11/28/18 Allergy Relief] folic acid 1 mg PO DAILY 06/09/18 11/28/18 spironolactone 25 mg PO DAILY 11/28/18 11/28/18 Previous Rx's Medication Instructions Recorded carvedilol 25 mg PO BID #0 07/02/12 Allergies Allergy/AdvReac Type Severity Reaction Status Date / Time dofetilide Allergy Unknown Unverified 11/28/18 09:42 General Stated Complaint: Nausea/Vomit/Diar SUELLEN: 3 Review of Systems Constitutional Constitutional: Denies chills, Denies fever(s) and Denies poor appetite Cardiovascular Cardiovascular: Denies chest pain and Denies dyspnea Respiratory Respiratory: Denies cough and Denies dyspnea Gastrointestinal Gastrointestinal: Reports as per HPI, Denies abdominal pain, Denies melena, Reports hematochezia, Denies change in bowel habits, Denies constipation, Denies diarrhea, Reports nausea and Reports vomiting Genitourinary Genitourinary: Denies hematuria, Denies difficulty urinating and Denies dysuria Integumentary/Breasts Skin/Breast: Denies rash and Denies unusual bruising [facility] Medical History Atrial fibrillation Benign hypertension BPH (benign prostatic hyperplasia) Cervical radiculopathy chronic anticoagulation Chronic congestive heart failure non ischemic cardiomyopathy Depression Diabetes mellitus Diabetes mellitus associated with genetic syndrome Diverticulosis H/O mitral valve replacement Hyperlipidemia Hypertension Lumbar back pain Mitral valve disorder Neck pain Obstructive sleep apnea Osteoarthritis Restless leg syndrome Surgical History Fusion CMC joint (01/19/09) left thumb mitral valve replacement Pacemaker (05/22/16) (pacemaker end of battery life, change ICD to VVI) resection arthroplasty right thumb (01/17/09) Tonsillectomy and adenoidectomy Trigger Finger release (01/02/11) RIGHT MIDDLE, LEFT MIDDLE Trigger Finger release (04/29/12) RIGHT MIDDLE, LEFT MIDDLE Vasectomy Family History Mother , 49 yo Obesity Stroke Father , 55 yo Diabetes COPD (chronic obstructive pulmonary disease) Brother , 49 yo Heart disease Hypertension Brother Heart disease Myocardial infarct ICD (implantable cardioverter-defibrillator) battery depletion Son No problems noted. Son Asperger's disorder Anxiety ADHD Social History Smoking/Tobacco Use Status: Former Tobacco Use Alcohol Intake: current Alcohol Intake frequency: a few times a week Alcohol type: beer Details: drank to excess for about 2 years after his in Jan 2013 Drug use: Current Sobriety Substance use type: does not use Adopted: No Caregiver/Support person: Yes (lives with son w/ aspergers) Details: second son comes to home to help occassionally. in charge of finances Household members: children Housing: house Number of Children: 2 Education Level: college Do you need help understanding health information?: Rarely current occupation: retired Sexually active: No What is your relationship status?: How often do you talk on the phone with friends or family?: once per week How often do you get together with friends or relatives?: three or more times per week Panel score (0-1 are the most socially isolated patients): 1 What type of physical activity do you participate in: walking, irregular exercise and occasional exercise Duration: < 15 minutes/day Agree to transfusion: Yes Seatbelt use: always Do you feel safe at home: Yes Do you feel safe in your relationship?: Yes Would you like helpful sources: Yes Additional Social history: would like to find out IF his son, Rick, could be paid to help him prepare meals, get dressed, etc. Rick already does this for [employer], but if he could get paid to do so, it would help him. Rick is on SSDI for his Aspergers. Exam Const General: cooperative Orientation: alert, awake and oriented x3 Resp Effort & Inspection: normal respiratory effort and able to speak in complete sentences Auscultation: clear to auscultation bilaterally Cardio Rate: regular rate Rhythm: regular rhythm Heart Sounds: S1 normal and S2 normal GI Palpation: soft, not firm, no guarding, no masses, no pulsatile masses, not rigid, no splenomegaly and nontender Auscultation: normal bowel sounds Back/Spine/Pelvis Back: no CVA tenderness Neuro General: alert, awake, oriented x3, gait normal and moves all extremities Course Vital Signs Vital signs: Vital Signs Temperature 36.4 C L 11/28/18 09:35 Pulse 71 11/28/18 09:35 Respiratory Rate 20 11/28/18 09:35 Blood Pressure 127/73 11/28/18 09:35 Pulse Oximetry 97 11/28/18 09:35 Temperature 36.6 C 11/28/18 10:50 Temperature Source Temporal Artery Scan 11/28/18 10:50 Pulse 67 11/28/18 10:50 Respiratory Rate 20 11/28/18 09:35 Respiratory Effort 11/28/18 09:39 Blood Pressure 123/66 11/28/18 10:50 Pulse Oximetry 95 11/28/18 10:50 Oxygen Delivery Method Room Air 11/28/18 10:50 Oxygen Flow Rate 0 11/28/18 10:50 Pain Level 0 11/28/18 09:35 Lab/Test Results Lab/Test Results: Laboratory Tests Range/Units 11/28/18 11/28/18 10:28 10:28 WBC (4.4-10.8) k/cumm 10.49 RBC (4.50-6.00) m/cumm 4.04 L Hgb (13.5-17.5) g/dL 12.5 L Hct (40.0-50.0) % 38.1 L MCV (80-95) fL 94.3 MCH (27.0-33.0) pg 30.9 MCHC (32.0-36.0) g/dL 32.8 RDW (11.8-14.1) % 17.2 H Plt Count (130-400) x1000/uL 261 MPV (8.0-11.0) fL 9.2 Immature Gran % 0.7 Neutrophils % 78.0 Lymphocytes % 8.8 Monocytes % 9.9 Eosinophils % 2.2 Basophils % 0.4 Absolute Neutrophils (1.2-6.7) k/cumm 8.19 H Absolute Lymphocytes (1.2-3.4) k/cumm 0.92 L Absolute Monocytes (0.11-0.7) k/cumm 1.04 H Absolute Eosinophils (0.0-0.7) k/cumm 0.23 Absolute Basophils (0.0-0.2) k/cumm 0.04 Sodium (136-145) mmol/L 139 Potassium (3.5-5.1) mmol/L 4.0 Chloride (98-107) mmol/L 100 Carbon Dioxide (21.0-32.0) mmol/L 27.0 Anion Gap (3-11) mmol/L 12.0 H BUN (7-18) mg/dL 34 H Creatinine (0.70-1.30) mg/dL 2.47 H Estimated GFR/1.73 m2 (mL/min/1.73m2) 26.25 Glucose (70-100) mg/dL 228 H Calcium (8.5-10.1) mg/dL 8.6 Total Bilirubin (0.2-1.0) mg/dL 0.9 AST (15-37) U/L 24 ALT (16-63) U/L 21 Alkaline Phosphatase (46-116) U/L 139 H Total Protein (6.4-8.2) g/dL 7.3 Albumin (3.4-5.0) g/dL 3.7 Lipase (73-393) U/L 216
[2018-11-28 10:56] LABS: ETHANOL BLOOD < 3.0 mg/dL (<3)
[2018-11-28 11:35] VITALS: BP 123/66; PULSE 67; RESP 18; TEMP 36.6; O2SAT 95
--- NOTE | 2018-11-28 17:01 | NUR.NOTE ---
Nursing Note: Referral faxed to PCP for follow up within 1 wk. Jennifer Moore.
== END 2018-11-28 11:41 | disposition home or self-care (01) ==
PROVIDERS: Emergency Provider Nurse Practitioner Family; PCP Family Medicine
DX: K92.0 Hematemesis (principal); Z79.01 Long term (current) use of anticoagulants; I11.0 Hypertensive heart disease with heart failure; I50.9 Heart failure, unspecified; E11.9 Type 2 diabetes mellitus without complications; Z79.84 Long term (current) use of oral hypoglycemic drugs
CPT/HCPCS: 80053; 83690; 99283; 80320; 85025; 85610; 85730

== ENCOUNTER 2018-12-31 08:45 | Outpatient (REF) | payer MEDICARE, BC, SELFPAY ==
[2018-12-31 19:50] LABS: HCT 42.6 % (40.0-50.0); HGB 13.7 g/dL (13.5-17.5); Mean Corp. HGB Concentration 32.2 g/dL (32.0-36.0); Mean Corpuscular Volume 96.4 fL (80-95); Mean Platelet Volume 10.1 fL (8.0-11.0); Platelet Count 206 x1000/uL (130-400); RBC 4.42 m/cumm (4.50-6.00); RBC Distribution Width 17.3 % (11.8-14.1)
[2018-12-31 20:10] LABS: Hemoglobin A1C 7.5 % (4.5-6.2)
[2018-12-31 20:14] LABS: Anion Gap 10.1 mmol/L (3-11); BUN 36 mg/dL (7-18); CO2 25.9 mmol/L (21.0-32.0); CREATININE 2.43 mg/dL (0.70-1.30); Calcium 9.2 mg/dL (8.5-10.1); Chloride 102 mmol/L (98-107); Estimated GFR 26.75 (mL/min/1.73m2); Glucose 157 mg/dL (74-106); Potassium 3.9 mmol/L (3.5-5.1); Sodium 138 mmol/L (136-145)
[2018-12-31 20:15] LABS: Folate > 20.0 ng/mL (8.6-20.0); Vitamin B12 > 2000 pg/mL (193-986)
== END 2018-12-31 09:05 ==
LOC: NCHCN 08:45
PROVIDERS: PCP Family Medicine; Visit Provider Family Medicine
DX: N18.3 Chronic kidney disease, stage 3 (moderate) (principal); E11.9 Type 2 diabetes mellitus without complications; D52.9 Folate deficiency anemia, unspecified
CPT/HCPCS: 80048; 85027; 82607; 82746; 83036

== ENCOUNTER 2019-01-19 13:12 | Emergency (ER) | payer MEDICARE, BC, SELFPAY ==
[2019-01-19 13:27] VITALS: BP 118/71; PULSE 67; RESP 16; TEMP 36.4; O2SAT 98
--- NOTE | 2019-01-19 14:33 | DI.RAD_ITS ---
EXAM: XR SHOULDER RT COMPLETE 2+V INDICATION: pain, injury. COMPARISON: CT upper extremity LT wo from 09/18/2018 TECHNIQUE: 2D digital imaging was performed. FINDINGS: No fracture or dislocation is seen. There are degenerative changes at the AC joint. There are moder ate degenerative changes of the glenohumeral joint. Spurring is seen at the greater and lesser tuber osities. IMPRESSION: Degenerative changes. No acute abnormality.
--- NOTE | 2019-01-19 14:37 | DI.RAD_ITS ---
EXAM: XR HUMERUS RT INDICATION: right, humerus pain, fall. COMPARISON: XR SHOULDER RT COMPLETE 2+V from 01/19/2019 TECHNIQUE: 2D digital imaging was performed. FINDINGS: No fracture is identified. The shoulder shows degenerative changes at the AC joint and glenoid. The re is superior positioning of the humeral head consistent with chronic rotator cuff tear. The elbow i s unremarkable. IMPRESSION: Degenerative changes. No acute abnormality.
--- NOTE | 2019-01-19 14:52 | W.ED.GENAD ---
Discharge Plan Disposition Patient Disposition: HOME Condition: Good Discharge Details Chief Complaint: Orthopedic Clinical Impression: Acute shoulder pain, Biceps muscle tear Primary Care Provider: Joanne Brewster ED Provider: Teodora Vera Home Meds and New Rx's Prescriptions: No Action ropinirole 2 mg tablet 2 mg PO QHS RF: 0 tamsulosin [Flomax] 0.4 mg capsule 0.4 mg PO DAILY RF: 0 aspirin [Aspir-Low] 81 MG tablet,delayed release (DR/EC) 81 mg PO DAILY RF: 0 magnesium oxide 500 MG capsule 500 mg PO BID Qty: 1 RF: 0 amiodarone 200 MG tablet 200 mg PO DAILY RF: 0 carvedilol 25 MG tablet 25 mg PO BID Qty: 0 RF: 0 zolpidem 12.5 MG tablet,ext release multiphase 12.5 mg PO HS PRN PRNRF: 0 riboflavin (vitamin B2) [Vitamin B-2] 100 mg tablet 200 mg PO BID RF: 0 furosemide [Lasix] 40 mg tablet 40 mg PO BID RF: 0 metformin 500 MG tablet extended release 24 hr 500 mg PO BID RF: 0 gabapentin 600 MG tablet 600 mg PO BID RF: 0 albuterol sulfate [ProAir HFA] 8.5 GM HFA aerosol inhaler 1 puff IN Q4H PRN PRNRF: 0 cyanocobalamin (vitamin B-12) [Vitamin B-12] 1,000 mcg Tablet 1,000 mcg PO DAILY RF: 0 warfarin 5 mg Tablet See Rx Instructions .ROUTE .COMPLEX RF: 0 rosuvastatin [Crestor] 20 MG tablet 20 mg PO DAILY RF: 0 folic acid 1 mg Tablet 800 mcg/kg PO DAILY RF: 0 fluticasone propionate [Flonase Allergy Relief] 50 mcg/actuation [place],Suspension 1 spray INTRANASAL DAILY PRNRF: 0 spironolactone 25 mg Tablet 25 mg PO DAILY RF: 0 Discharge Instructions Instructions: Shoulder Pain (ED) Additional Instructions: Rest. Activities as tolerated. Elevate injury to prevent swelling. Ice to the area of discomfort for 15 min. 3-5 times daily. Motrin every 8 hours with food or Tylenol every 6 hours for soreness if needed over the counter for comfort. Followup with orthopedic doctor as discussed for reevaluation Sling for 3 days for comfort. Return for any worsening or concerns sooner if needed. Discharge Data Discharge Date/Time-TO BE ENTERED AT DEPARTURE: 01/19/19 16:56 Medical Decision Making Is a 68-year-old patient who has a history of frequent falls. Patient reports frequent falls are well known to the patient. Patient denies any new headache or dizziness. Patient does report he sustained a fall approximately 2 weeks ago injuring her his right arm. At that time patient still had full range of motion of the arm but did have pain with overhead lifting. Patient reports a subsequent fall approximately 1 week ago which resulted in him falling forward striking both of his arms on the chair in front of him which was bit too far away to catch himself. Patient reports he sustained areas of ecchymosis to bilateral upper arms. Patient reports after subsequent fall increase in right arm limited range of motion. Patient reports increasing pain for the last week. Patient does have known rotator cuff injury on the right shoulder and a chronic dislocation of the left shoulder. Patient is concerned with increasing pain in the right arm specifically. Patient has ecchymosis overlying bilateral biceps. Left biceps with intact range of motion. Right bicep with limited range of motion due to pain. Patient has an obvious hematoma noted near the biceps but no significant pain at the biceps proximal insertion or distal insertion. Patient's exam is somewhat limited to evaluate bicep fully. Possibility of a biceps injury or partial tear. X-rays ordered of the right arm at patient's request. X-rays reveal degenerative changes of the right shoulder but no focal fractures. Patient offered sling for discomfort. Patient encouraged close follow-up with orthopedics. Shakir encouraged. Discussed pendulum exercises. I did encourage close follow-up with orthopedics due to concern of possible biceps injury. Encouraged avoidance of lifting heavy weights or reaching overhead The patient was stable and requested discharge. Prior to discharge, my usual and customary return precautions were reviewed with the patient - this included follow-up instructions and reasons to return to the Emergency Department if conditions worsens, does not improve as expected, or other new concerns arise. HPI General Date/Time Provider Initiated Documentation: 01/19/19 14:18. HPI Narrative: This is a 68-year-old gentleman who complaints of right arm pain. Patient reports right arm pain after multiple falls affecting the right arm in the last 2 weeks. Patient reports originally he lost his balance which is not uncommon striking his right humerus area on a sink. Patient reports he feels he blew out his bicep. Patient reports that he has a increased pain with range of motion but did not have significant limitations to range of motion at that time. Patient then reports a subsequent fall while he was on the toilet and missed the chair which was in front of him striking again his right humerus. Patient reports since subsequent fall increasing limitation to range of motion of the right arm. Patient also has known rotator cuff injuries. Patient has received multiple injections in bilateral shoulders with orthopedics. Related Data Home Medications Medication Instructions Recorded Confirmed zolpidem 12.5 mg PO HS PRN PRN 06/27/12 01/19/19 carvedilol 25 mg PO BID #0 07/02/12 01/19/19 aspirin [Aspir-Low] 81 mg PO DAILY tab-cap 09/18/12 01/19/19 magnesium oxide 500 mg PO BID #1 09/18/12 01/19/19 metformin 500 mg PO BID 06/28/13 01/19/19 amiodarone 200 mg PO DAILY tab-cap 09/10/14 01/19/19 rosuvastatin [Crestor] 20 mg PO DAILY 03/29/16 01/19/19 albuterol sulfate [ProAir HFA] 1 puff IN Q4H PRN PRN 06/03/17 01/19/19 gabapentin 600 mg PO BID 06/03/17 01/19/19 riboflavin (vitamin B2) 100 mg 200 mg PO BID tab 12/04/17 01/19/19 tablet cyanocobalamin (vitamin B-12) 1,000 mcg PO DAILY 02/16/18 01/19/19 [Vitamin B-12] warfarin See Rx Instructions .ROUTE .COMPLEX 02/16/18 01/19/19 ropinirole 2 mg tablet 2 mg PO QHS 03/24/18 01/19/19 furosemide 40 mg tablet 40 mg PO BID tab 06/03/18 01/19/19 fluticasone propionate [Flonase 1 spray INTRANASAL DAILY PRN 06/09/18 01/19/19 Allergy Relief] folic acid 800 mcg/kg PO DAILY 06/09/18 01/19/19 spironolactone 25 mg PO DAILY 11/28/18 01/19/19 tamsulosin 0.4 mg capsule 0.4 mg PO DAILY 12/02/18 01/19/19 Previous Rx's Medication Instructions Recorded carvedilol 25 mg PO BID #0 07/02/12 Allergies Allergy/AdvReac Type Severity Reaction Status Date / Time dofetilide Allergy Unknown Unverified 01/19/19 13:32 General Stated Complaint: Orthopedic SUELLEN: 3 Review of Systems All systems reviewed & are unremarkable except as noted in HPI and below Constitutional Constitutional: Denies fatigue, Denies fever(s), Denies headache(s) and Denies malaise ENT Ears, Nose, Mouth, and Throat: Denies headache(s) and Denies neck pain Cardiovascular Cardiovascular: Denies chest pain Gastrointestinal Gastrointestinal: Denies abdominal pain Musculoskeletal Musculoskeletal: Denies back pain, Denies deformity, Reports limited range of motion and Denies neck pain Integumentary/Breasts Skin/Breast: Reports other (Bruising/hematoma) Neurologic Neurologic: Denies headache(s) Endocrine Endocrine: Denies fatigue [facility] Medical History Atrial fibrillation Benign hypertension BPH (benign prostatic hyperplasia) Cervical radiculopathy chronic anticoagulation Chronic congestive heart failure non ischemic cardiomyopathy Chronic pain (Chronic) Depression Diabetes mellitus Diabetes mellitus associated with genetic syndrome Diverticulosis DNI (do not intubate) (Acute) DNR (do not resuscitate) (Acute) H/O mitral valve replacement Hyperlipidemia Hypertension Lumbar back pain Mitral valve disorder Neck pain Obesity (Chronic) Obstructive sleep apnea Osteoarthritis Palliative care patient (Acute) Restless leg syndrome Surgical History Fusion CMC joint (01/19/09) left thumb mitral valve replacement Pacemaker (05/22/16) (pacemaker end of battery life, change ICD to VVI) resection arthroplasty right thumb (01/17/09) Tonsillectomy and adenoidectomy Trigger Finger release (01/02/11) RIGHT MIDDLE, LEFT MIDDLE Trigger Finger release (04/29/12) RIGHT MIDDLE, LEFT MIDDLE Vasectomy Social History Smoking/Tobacco Use Status: Former Tobacco Use Alcohol Intake: current Alcohol Intake frequency: a few times a week Alcohol type: beer Details: drank to excess for about 2 years after his in Jan 2013 Drug use: Current Sobriety Substance use type: does not use Adopted: No Caregiver/Support person: Yes (lives with son w/ aspergers) Details: second son comes to home to help occassionally. in charge of finances Household members: children Housing: house Number of Children: 2 number of grandchildren: 0 Communication Needs: Corrective Lenses Education Level: college Do you need help understanding health information?: Rarely current occupation: retired Sexually active: No What is your relationship status?: How often do you talk on the phone with friends or family?: once per week How often do you get together with friends or relatives?: three or more times per week Panel score (0-1 are the most socially isolated patients): 1 What type of physical activity do you participate in: none and sedentary lifestyle Duration: < 15 minutes/day Special kinga needs: No Agree to transfusion: Yes Seatbelt use: always Working smoke detector in home: Yes Fire extinguisher in home: Yes Do you feel safe at home: Yes Do you feel safe in your relationship?: Yes Would you like helpful sources: Yes Exam Narrative Exam Narrative: CONST: Healthy appearing patient, in no acute distress. Well hydrated. Alert and alert. NECK: Normal visual inspection. FROM. Trachea midline. No Midline tenderness. CHEST: Normal insepection of the chest. MUSCULOSKELETAL: Normal Gait. Patient with obvious areas of hematoma and ecchymosis to bilateral mid upper arms anteriorly. Areas of ecchymosis are approximately 6 cm. Right arm with a limited range of motion overhead, limited abduction. Pain with palpation of right bicep as well as glenohumeral joint. Weakness with left flexion at the elbow. Palpable area of induration noted in the biceps otherwise no significant tenderness with biceps insertion proximally or distally. Limited exam of right arm due to patient's complaints of pain. Left arm with obvious ecchymosis however some limitation to overhead range of motion which is baseline. No pain with palpation of the left shoulder. No significant bursa pain with palpation. No elbow pain with palpation bilaterally, supination pronation intact bilaterally. Wrist range of motion intact. Cyber Engineer strength intact bilaterally. Pulses intact bilaterally sensation intact distally. SKIN: Normal. Dry. No rashes. Ecchymosis as described above bilaterally upper arms NEURO: Alert and awake. Speech clear. PSYCH: Normal affect. Cooperative. Course Vital Signs Vital signs: Vital Signs Temperature 36.4 C L 01/19/19 13:27 Pulse 67 01/19/19 13:27 Respiratory Rate 16 01/19/19 13:27 Blood Pressure 118/71 01/19/19 13:27 Pulse Oximetry 98 01/19/19 13:27 Temperature 36.4 C L 01/19/19 13:27 Temperature Source Skin 01/19/19 13:27 Pulse 67 01/19/19 13:27 Respiratory Rate 16 01/19/19 13:27 Respiratory Effort Non-Labored 01/19/19 13:27 Blood Pressure 118/71 01/19/19 13:27 Blood Pressure Position Sitting 01/19/19 13:27 Pulse Oximetry 98 01/19/19 13:27 Oxygen Delivery Method Room Air 01/19/19 13:27 Oxygen Flow Rate 0 01/19/19 13:27 Pain Level 7 01/19/19 14:17
== END 2019-01-19 16:56 | disposition home or self-care (01) ==
PROVIDERS: Emergency Provider Physician Assistant; PCP Family Medicine
DX: S46.211A Strain of muscle, fascia and tendon of other parts of biceps, right arm, initial encounter (principal); W19.XXXA Unspecified fall, initial encounter; M25.511 Pain in right shoulder; E11.9 Type 2 diabetes mellitus without complications; I11.0 Hypertensive heart disease with heart failure; I50.9 Heart failure, unspecified
CPT/HCPCS: 99283; 73030; 73060; L3650

== ENCOUNTER 2019-01-28 15:26 | Outpatient (REF) | payer MEDICARE, BC, SELFPAY ==
[2019-01-28 19:38] LABS: Anion Gap 10.6 mmol/L (3-11); BUN 27 mg/dL (7-18); CO2 26.4 mmol/L (21.0-32.0); CREATININE 2.17 mg/dL (0.70-1.30); Calcium 9.2 mg/dL (8.5-10.1); Chloride 101 mmol/L (98-107); Estimated GFR 30.48 (mL/min/1.73m2); Glucose 135 mg/dL (74-106); Potassium 4.5 mmol/L (3.5-5.1); Sodium 138 mmol/L (136-145)
== END 2019-01-28 15:46 ==
LOC: NCHCN 15:26
PROVIDERS: PCP Family Medicine; Visit Provider Family Medicine
DX: N18.3 Chronic kidney disease, stage 3 (moderate) (principal); R60.0 Localized edema
CPT/HCPCS: 80048

== ENCOUNTER → 2019-02-16 13:44 | Outpatient (BNVA) | payer MEDICARE, BC, SELFPAY | PROVIDERS: PCP Family Medicine; Referring Provider Family Medicine; Visit Provider Student in an Organized Health Care Education/Training Program | DX: M19.011 Primary osteoarthritis, right shoulder (principal); M75.81 Other shoulder lesions, right shoulder; E11.9 Type 2 diabetes mellitus without complications; Z79.84 Long term (current) use of oral hypoglycemic drugs | CPT/HCPCS: 20610; 99213; J1040 ==

== ENCOUNTER 2019-02-18 15:03 | Emergency (ER) | payer MEDICARE, BC, SELFPAY ==
[2019-02-18] VITALS (29 sets, daily range): BP systolic 106–131; BP diastolic 57–82; PULSE 58–69; RESP 10–26; TEMP 36.1–36.9; O2SAT 94–100
--- NOTE | 2019-02-18 15:41 | W.ED.GENAD ---
Discharge Plan Disposition Patient Disposition: HOME Discharge Details Chief Complaint: Chest/Rib Clinical Impression: Cellulitis of right lower extremity, Left flank pain, Inflammation of the retroperitoneum Primary Care Provider: Joanne Brewster ED Provider: Rush Laureano Home Meds and New Rx's Prescriptions: New cephalexin [Keflex] 500 mg capsule 500 mg PO QID Qty: 39 RF: 0 tramadol [Ultram] 50 mg tablet 50 mg PO BID PRN (Reason: severe pain) Qty: 8 RF: 0 Continued ropinirole 2 mg tablet 2 mg PO QHS RF: 0 tamsulosin [Flomax] 0.4 mg capsule 0.4 mg PO DAILY RF: 0 aspirin [Aspir-Low] 81 MG tablet,delayed release (DR/EC) 81 mg PO DAILY RF: 0 magnesium oxide 500 MG capsule 500 mg PO BID Qty: 1 RF: 0 amiodarone 200 MG tablet 200 mg PO DAILY RF: 0 carvedilol 25 MG tablet 25 mg PO BID Qty: 0 RF: 0 zolpidem 12.5 MG tablet,ext release multiphase 12.5 mg PO HS PRN PRNRF: 0 riboflavin (vitamin B2) [Vitamin B-2] 100 mg tablet 200 mg PO BID RF: 0 furosemide [Lasix] 40 mg tablet 40 mg PO BID RF: 0 metformin 500 MG tablet extended release 24 hr 500 mg PO BID RF: 0 gabapentin 600 MG tablet 600 mg PO BID RF: 0 albuterol sulfate [ProAir HFA] 8.5 GM HFA aerosol inhaler 1 puff IN Q4H PRN PRNRF: 0 cyanocobalamin (vitamin B-12) [Vitamin B-12] 1,000 mcg Tablet 1,000 mcg PO DAILY RF: 0 loratadine 10 mg Tablet 10 mg PO DAILY RF: 0 rosuvastatin [Crestor] 20 MG tablet 20 mg PO DAILY RF: 0 folic acid 1 mg Tablet 800 mcg/kg PO DAILY RF: 0 fluticasone propionate [Flonase Allergy Relief] 50 mcg/actuation [place],Suspension 1 spray INTRANASAL DAILY PRNRF: 0 spironolactone 25 mg Tablet 50 mg PO DAILY RF: 0 No Action warfarin 5 mg Tablet See Rx Instructions .ROUTE .COMPLEX RF: 0 Discharge Instructions Instructions: Cellulitis (ED), Flank Pain (ED) Additional Instructions: Please follow-up with your doctor. Call for an appointment. Hold your Coumadin dosing tonight. Continue dose tomorrow as prescribed and discuss ongoing dosing with your doctor. Return to the ER at any time for further treatment and diagnostics as suggested. Referrals: Joanne Brewster MD [Primary Care Provider] - Medical Decision Making Medical Records Medical records narrative: 19:45 -- 68-year-old male with multiple medical problems presents with 2 days of left flank pain now radiating to his left upper abdomen. Abdominal exam benign. Patient does have left CVA tenderness. Concern for acute surgical pathology. Labs reviewed: No leukocytosis, UA negative, creatinine is elevated with poor GFR. Noncontrast CT the abdomen pelvis was obtained. CT of the abdomen pelvis was interpreted by radiology: IMPRESSION: Nonspecific retroperitoneal fat stranding superior to the celiac access and to a lesser extent about the aortoiliac bifurcation. The finding is of unclear clinical significance but may represent sequela of infectious or inflammatory process. Lactate pending. I discussed results with patient. I explained CT findings inconclusive and limited as a result of no contrast enhancement. I suggested admission for serial exams and potential additional diagnostics and treatment. Patient verbalized understanding of results, my concerns and my recommended plan. He would prefer to go home tonight with the caveat that he would plan to return if symptoms worsened. Patient has decisional making capacity to refuse treatment plan. He does intend to follow-up with PCP and is agreeable to staying until lactate results. Plan to treat pain with tramadol and lidocaine patch. Patient also with weeping ulcer right lower extremity with surrounding erythema. Concern for potential cellulitis. Plan to treat with Keflex. 20:15 -- Lactate elevated at 1.9. Results reviewed with patient. I called and spoke with Dr. Miranda, hospitalist, and discussed ED presentation and course including all diagnostics and course - he will see patient for admission evaluation. 20:47 -- Patient evaluated by Dr. Miranda who advises that patient should be discharged with outpatient follow-up at this time. He does not feel patient will benefit from admission and can be successfully treated as an outpatient. Dr. Miranda discussed plan with patient. Lab Data Lab results reviewed: Yes I reviewed the patient's lab results. HPI General Mode of arrival: ambulatory. Date/Time Provider Initiated Documentation: 02/18/19 15:21. Limitations to Documentation: no limitations. Information obtained by: patient. HPI Narrative: 68-year-old male with multiple medical problems including atrial fibrillation, on Coumadin, chronic CHF, diabetes, diverticulosis, mitral valve replacement, pacemaker, here with chief complaint of flank pain. Patient notes left-sided flank pain for the past 2 days. Pain is moderate to severe. When he takes a deep breath he does have some exacerbation of the pain in his flank. Patient also notes abnormal bruising. He states that he has chronic lower extremity edema but has had recent ulcers that have been weeping over the past 1 to 2 weeks. Patient does have short-term memory difficulties which does limit history. He denies fever. He denies dysuria. Related Data Home Medications Medication Instructions Recorded Confirmed zolpidem 12.5 mg PO HS PRN PRN 06/27/12 02/18/19 carvedilol 25 mg PO BID #0 07/02/12 02/18/19 aspirin [Aspir-Low] 81 mg PO DAILY tab-cap 09/18/12 02/18/19 magnesium oxide 500 mg PO BID #1 09/18/12 02/18/19 metformin 500 mg PO BID 06/28/13 02/18/19 amiodarone 200 mg PO DAILY tab-cap 09/10/14 02/18/19 rosuvastatin [Crestor] 20 mg PO DAILY 03/29/16 02/18/19 albuterol sulfate [ProAir HFA] 1 puff IN Q4H PRN PRN 06/03/17 02/18/19 gabapentin 600 mg PO BID 06/03/17 02/18/19 riboflavin (vitamin B2) 100 mg 200 mg PO BID tab 12/04/17 02/18/19 tablet cyanocobalamin (vitamin B-12) 1,000 mcg PO DAILY 02/16/18 02/18/19 [Vitamin B-12] warfarin See Rx Instructions .ROUTE .COMPLEX 02/16/18 02/18/19 ropinirole 2 mg tablet 2 mg PO QHS 03/24/18 02/18/19 furosemide 40 mg tablet 40 mg PO BID tab 06/03/18 02/18/19 fluticasone propionate [Flonase 1 spray INTRANASAL DAILY PRN 06/09/18 02/18/19 Allergy Relief] folic acid 800 mcg/kg PO DAILY 06/09/18 02/18/19 spironolactone 50 mg PO DAILY 11/28/18 02/18/19 tamsulosin 0.4 mg capsule 0.4 mg PO DAILY 12/02/18 02/18/19 cephalexin [Keflex] 500 mg PO QID #39 cap 02/18/19 loratadine 10 mg PO DAILY 02/18/19 02/18/19 tramadol [Ultram] 50 mg PO BID PRN #8 tab 02/18/19 Previous Rx's Medication Instructions Recorded carvedilol 25 mg PO BID #0 07/02/12 cephalexin [Keflex] 500 mg PO QID #39 cap 02/18/19 tramadol [Ultram] 50 mg PO BID PRN #8 tab 02/18/19 Allergies Allergy/AdvReac Type Severity Reaction Status Date / Time dofetilide Allergy Unknown Unverified 02/18/19 15:07 General Stated Complaint: Chest/Rib SUELLEN: 2 Review of Systems All systems reviewed & are unremarkable except as noted in HPI and below Respiratory Respiratory: Denies cough Gastrointestinal Gastrointestinal: Reports as per HPI, Denies melena, Reports bloating, Denies diarrhea, Denies nausea and Denies vomiting [facility] Medical History Atrial fibrillation Benign hypertension BPH (benign prostatic hyperplasia) Cervical radiculopathy chronic anticoagulation Chronic congestive heart failure non ischemic cardiomyopathy Chronic pain (Chronic) Depression Diabetes mellitus Diabetes mellitus associated with genetic syndrome Diverticulosis DNI (do not intubate) (Acute) DNR (do not resuscitate) (Acute) H/O mitral valve replacement Hyperlipidemia Hypertension Lumbar back pain Mitral valve disorder Neck pain Obesity (Chronic) Obstructive sleep apnea Osteoarthritis Palliative care patient (Acute) Restless leg syndrome Surgical History Fusion CMC joint (01/19/09) left thumb mitral valve replacement Pacemaker (05/22/16) (pacemaker end of battery life, change ICD to VVI) resection arthroplasty right thumb (01/17/09) Tonsillectomy and adenoidectomy Trigger Finger release (01/02/11) RIGHT MIDDLE, LEFT MIDDLE Trigger Finger release (04/29/12) RIGHT MIDDLE, LEFT MIDDLE Vasectomy Family History Mother , 49 yo Obesity Stroke Father , 55 yo Diabetes COPD (chronic obstructive pulmonary disease) Brother , 49 yo Heart disease Hypertension Brother Heart disease Myocardial infarct ICD (implantable cardioverter-defibrillator) battery depletion Son No problems noted. Son Asperger's disorder Anxiety ADHD Social History Smoking/Tobacco Use Status: Former Tobacco Use Alcohol Intake: current Alcohol Intake frequency: a few times a week Alcohol type: beer Details: drank to excess for about 2 years after his in Jan 2013 Drug use: Current Sobriety Substance use type: does not use Adopted: No Caregiver/Support person: Yes (lives with son w/ tyler) Details: second son comes to home to help occassionally. in charge of finances Household members: children Housing: house Number of Children: 2 number of grandchildren: 0 Communication Needs: Corrective Lenses Education Level: college Do you need help understanding health information?: Rarely current occupation: retired Sexually active: No Current gender identity: male What is your relationship status?: How often do you talk on the phone with friends or family?: once per week How often do you get together with friends or relatives?: three or more times per week Panel score (0-1 are the most socially isolated patients): 1 What type of physical activity do you participate in: none and sedentary lifestyle Duration: < 15 minutes/day Special kinga needs: No Agree to transfusion: Yes Seatbelt use: always Working smoke detector in home: Yes Fire extinguisher in home: Yes Do you feel safe at home: Yes Do you feel safe in your relationship?: Yes Would you like helpful sources: Yes Exam Const General: cooperative and no acute distress HENMT Mouth: moist mucous membranes Eyes Conjunctivae: normal conjunctivae Sclera: normal sclerae Neck Neck: trachea midline and supple Resp Auscultation: clear to auscultation bilaterally, no rales, no rhonchi and no wheezes Cardio Jugular venous pressure: no JVD Rate: regular rate and not tachycardic Rhythm: regular rhythm GI Palpation: soft, not firm, no guarding, no masses, not rigid and nontender Auscultation: normal bowel sounds Back/Spine/Pelvis Back: CVA tenderness (left flank) Skin General skin exam: no rashes or lesions noted Neuro General: alert, awake, oriented x3 and tone normal Extrem General: edema Laterality: bilateral (up shins with ulcer weeping RLE) Psych Appearance: grossly normal Mental Status: mental status grossly normal Course Vital Signs Vital signs: Vital Signs Temperature 36.9 C 02/18/19 14:51 Pulse 60 02/18/19 14:51 Respiratory Rate 15 02/18/19 14:51 Blood Pressure 120/78 02/18/19 14:51 Pulse Oximetry 100 02/18/19 14:51 Temperature 36.9 C 02/18/19 14:51 Temperature Source Temporal Artery Scan 02/18/19 14:51 Pulse 60 02/18/19 14:51 Respiratory Rate 15 02/18/19 14:51 Respiratory Effort Non-Labored 02/18/19 15:04 Respiratory Pattern Normal 02/18/19 15:04 Blood Pressure 120/78 02/18/19 14:51 Pulse Oximetry 100 02/18/19 14:51 Oxygen Delivery Method Room Air 02/18/19 14:51 Oxygen Flow Rate 0 02/18/19 14:51 Pain Level 8 02/18/19 15:04
[2019-02-18 16:08] LABS: Abs Immature Grans 0.02 k/cumm (0.0-0.09); Absolute Basophil Count 0.03 k/cumm (0.0-0.2); Absolute Eosinophil Count 0.09 k/cumm (0.0-0.7); Absolute Lymphocyte Count 0.83 k/cumm (1.2-3.4); Absolute Monocyte Count 0.84 k/cumm (0.11-0.7); Absolute Neutrophil Count 8.14 k/cumm (1.2-6.7); Basophils % 0.3; Eosinophils % 0.9; HCT 38.6 % (40.0-50.0); HGB 12.3 g/dL (13.5-17.5); Immature Grans % 0.2 %; Lymphocytes % 8.3; Mean Corp. HGB Concentration 31.9 g/dL (32.0-36.0); Mean Corpuscular Hemoglobin 31.3 pg (27.0-33.0); Mean Corpuscular Volume 98.2 fL (80-95); Mean Platelet Volume 9.5 fL (8.0-11.0); Monocytes % 8.4; Neutrophils % 81.9; Platelet Count 244 x1000/uL (130-400); RBC 3.93 m/cumm (4.50-6.00); RBC Distribution Width 16.1 % (11.8-14.1); White Blood Cell Count 9.95 k/cumm (4.4-10.8)
[2019-02-18 16:17] LABS: INR 3.4 (0.9-1.1); Prothrombin Time 33.1 sec (9.3-11.0)
[2019-02-18 16:25] LABS: ALT 41 U/L (16-63); AST 31 U/L (15-37); Albumin 3.8 g/dL (3.4-5.0); Alkaline Phosphatase 148 U/L (46-116); Anion Gap 12.5 mmol/L (3-11); BUN 39 mg/dL (7-18); Bilirubin, Total 1.2 mg/dL (0.2-1.0); CO2 26.5 mmol/L (21.0-32.0); CREATININE 2.36 mg/dL (0.70-1.30); Chloride 99 mmol/L (98-107); Estimated GFR 27.67 (mL/min/1.73m2); Glucose 148 mg/dL (74-106); Potassium 4.1 mmol/L (3.5-5.1); Sodium 138 mmol/L (136-145); Total Protein 7.3 g/dL (6.4-8.2)
[2019-02-18 17:05] LABS: Bilirubin Negative (Negative); Blood Trace-intact (Negative); Clarity Clear (Clear); Glucose Negative (Negative); Ketones Negative (Negative); Leukocyte Esterase Negative (Negative); Nitrite Negative (Negative); Specific Gravity 1.015 (1.005-1.025); Urobilinogen 0.2 EU/dL (Up TO 0.2)
[2019-02-18 17:19] LABS: Bacteria Negative HPF (Negative); C & S Indicated? No; Casts Negative LPF (Negative); Crystals Negative HPF (Negative); Epithelial Cells Rare HPF (Negative); Mucus Negative (Negative); Other Cells Negative (Negative); RBC Negative HPF (0-2); WBC Negative HPF (0-5)
--- NOTE | 2019-02-18 18:16 | DI.CT_ITS ---
EXAM: CT ABDOMEN PELVIS WO CLINICAL HISTORY: left flank pain severe, rad to abd, easy bruising TECHNIQUE: CT examination of the abdomen and pelvis was performed without contrast administration. COMPARISON: CT chest/abd/pel wo from 02/18/2018 FINDINGS: Images obtained through the lung bases show cardiomegaly and some minor pulmonary scarring. There is nonspecific fat stranding in the retroperitoneum extending from level of celiac axis to the pelvis. Similar findings appear to be present on examination of February 2018. This is a nonspecific finding and may represent sequelae of inflammation or chronic inflammation. Liver has a mildly nodular contour and appears mildly enlarged, question cirrhosis. Spleen is unrema rkable. No significant upper abdominal varices. Gallbladder is contracted. Nondilated bile ducts. No evidence of urinary tract obstruction or calcification. Unremarkable appearance of the adrenals. No significant abdominal wall hernia. No significant abdominal or pelvic adenopathy. Abdominal ao rta is of normal diameter. Appendix is normal. No evidence of diverticulitis or bowel obstruction. IMPRESSION: No evidence of acute intra-abdominal process.
--- NOTE | 2019-02-18 18:46 | NUR.NOTE ---
report given to PAPI Juan
--- NOTE | 2019-02-18 19:03 | DI.VRAD_ITS ---
PROCEDURE INFORMATION: Exam: CT Abdomen And Pelvis Without Contrast Exam date and time: 02/18/2019 6:14 PM Age: 68 years old Clinical indication: Abdominal tenderness; Abdominal pain TECHNIQUE: Imaging protocol: Computed tomography of the abdomen and pelvis without contrast. COMPARISON: US RENAL ULTRASOUND(P) 01/26/2016 2:18 PM FINDINGS: Tubes, catheters and devices: Partially visualized pacer leads. Lungs: Visualized lung bases are unremarkable. Heart: Mitral calcifications. Liver: The liver is normal. Gallbladder and bile ducts: The gallbladder is normal. Pancreas: The pancreas is normal. Spleen: The spleen is normal. Adrenals: The adrenal glands are normal. Kidneys and ureters: The kidneys are normal. Stomach and bowel: Unremarkable. No obstruction. No mucosal thickening. Appendix: The appendix is not visualized. Intraperitoneal space: Unremarkable. No free air. No significant fluid collection. Retroperitoneal space: Nonspecific retroperitoneal fat stranding superior to the celiac access and to a lesser extent about the aortoiliac bifurcation Vasculature: The aorta demonstrates mild atherosclerotic calcification. No aortic aneurysm. Lymph nodes: Unremarkable. No enlarged lymph nodes. Bladder: The bladder is normal. Reproductive: Unremarkable as visualized. Bones/joints: Subacute to chronic posterior left 10th and 11th rib fractures. Soft tissues: Small fat containing ventral hernia. IMPRESSION: Nonspecific retroperitoneal fat stranding superior to the celiac access and to a lesser extent about the aortoiliac bifurcation. The finding is of unclear clinical significance but may represent sequela of infectious or inflammatory process. Dictated and Authenticated by: Ravi López MD. Ordering:LUCIANO Beverly MD
--- NOTE | 2019-02-18 19:13 | NUR.NOTE ---
Nursing Note: Ice chips provided for pt. Clean blue pad under leg per pt's requests. Waiting test results
--- NOTE | 2019-02-18 19:30 | NUR.NOTE ---
Nursing Note: IV fluids infusing per pump at 150/hr.
--- NOTE | 2019-02-18 19:33 | NUR.NOTE ---
Nursing Note: Physician in discussing test results with pt.
[2019-02-18 20:10] LABS: Lactate 1.9 mmol/L (0.6-1.4)
[2019-02-18] MEDS: traMADol 50 MG TAB PO (20:17)
[2019-02-18] MEDS: Cephalexin 500 MG CAP PO (20:17)
[2019-02-18] MEDS: Lidocaine 5% Patch 1 PATCH TP (20:17)
--- NOTE | 2019-02-18 20:21 | NUR.NOTE ---
Nursing Note: Lidoderm patch applied to left flank/rib area
--- NOTE | 2019-02-18 20:45 | NUR.NOTE ---
Nursing Note: Waiting room number for admit
--- NOTE | 2019-02-18 20:50 | W.MEDCONSULT ---
Date of service: 02/18/19 Time of Service: 20:50 Assessment and Plan Assessment and plan (1) Flank pain: Status: Acute Assessment and plan: I think the great preponderance of the evidence points to a non-specific chest wall lesion. PE is very unlikely given the point tenderness, the supratherapeutic INR as well as the absence of SOB or tachycardia. An occult rib fracture would be not unlikely, or perhaps more simply a pulled muscle. Another possibility would be Zoster before the appearance of a rash. I am not sure how to explain the fat stranding findings on CT but am hard pressed to regard this as other than incidental; perhaps this should be followed up on. I also note the chronic edema with stasis ulcers, and this too should be addressed. Altogether I do not see that admission is necessary and I think that supportive treatment with analgesics and f/u with PCP would be sufficient. History of Present Illness History of Present Illness Chief Complaint: flank pain Narrative: 68 male with multiple problems, on Coumadin for AF -- comes in with two days of progressive left flank pain, and later including band-like radiation towards the LUQ. No CP, no SOB, no abdominal pain, no dysuria or hematuria. He is not certain whether he might have banged it or fallen against it (he says his memory is not always 100%). but suffice to say he has no knowledge of any specific injury. Patient states the pain is sharp and knife-like, and worse with deep breathing and cough (note that he has not in fact had a cough) In the ER w/u of note for negative U/A and CT showing possibly some non-specific retroperitoneal stranding around the celiac axis, and to a lesser degree around the aortic bifurcation. Normal white count, and INR of 3.4. lactate mildly elevated at 1.9. Review of Systems All systems reviewed & are unremarkable except as noted in HPI and below [facility] Medical History Atrial fibrillation Benign hypertension BPH (benign prostatic hyperplasia) Cervical radiculopathy chronic anticoagulation Chronic congestive heart failure non ischemic cardiomyopathy Chronic pain (Chronic) Depression Diabetes mellitus Diabetes mellitus associated with genetic syndrome Diverticulosis DNI (do not intubate) (Acute) DNR (do not resuscitate) (Acute) H/O mitral valve replacement Hyperlipidemia Hypertension Lumbar back pain Mitral valve disorder Neck pain Obesity (Chronic) Obstructive sleep apnea Osteoarthritis Palliative care patient (Acute) Restless leg syndrome Surgical History Fusion CMC joint (01/19/09) left thumb mitral valve replacement Pacemaker (05/22/16) (pacemaker end of battery life, change ICD to VVI) resection arthroplasty right thumb (01/17/09) Tonsillectomy and adenoidectomy Trigger Finger release (01/02/11) RIGHT MIDDLE, LEFT MIDDLE Trigger Finger release (04/29/12) RIGHT MIDDLE, LEFT MIDDLE Vasectomy Family History Mother , 49 yo Obesity Stroke Father , 55 yo Diabetes COPD (chronic obstructive pulmonary disease) Brother , 49 yo Heart disease Hypertension Brother Heart disease Myocardial infarct ICD (implantable cardioverter-defibrillator) battery depletion Son No problems noted. Son Asperger's disorder Anxiety ADHD Social History Smoking/Tobacco Use Status: Former Tobacco Use Alcohol Intake: current Alcohol Intake frequency: a few times a week Alcohol type: beer Details: drank to excess for about 2 years after his in Jan 2013 Drug use: Current Sobriety Substance use type: does not use Adopted: No Caregiver/Support person: Yes (lives with son w/ tyler) Details: second son comes to home to help occassionally. in charge of finances Household members: children Housing: house Number of Children: 2 number of grandchildren: 0 Communication Needs: Corrective Lenses Education Level: college Do you need help understanding health information?: Rarely current occupation: retired Sexually active: No Current gender identity: male What is your relationship status?: How often do you talk on the phone with friends or family?: once per week How often do you get together with friends or relatives?: three or more times per week Panel score (0-1 are the most socially isolated patients): 1 What type of physical activity do you participate in: none and sedentary lifestyle Duration: < 15 minutes/day Special kinga needs: No Agree to transfusion: Yes Seatbelt use: always Working smoke detector in home: Yes Fire extinguisher in home: Yes Do you feel safe at home: Yes Do you feel safe in your relationship?: Yes Would you like helpful sources: Yes Exam Narrative Exam Narrative: 117/63, 59, 13, 98% RA, 36.1. HEENT AT/NC; neck supple; lungs clear; heart irr/irr, distant; chest wall no rash or lesions, point tenderness along left lower postero-lateral ribs, reproduces pain, no bony step off; abdomen soft and NT; /rectal deferred; extremities mixed pitting and non-pitting edema LEs with several shallow pretibial ulcers without redness or D/C; no calf tenderness, negative Jaime's Results Last Vital Signs Temp 36.1 C L 02/18/19 17:31 Pulse 59 L 02/18/19 20:08 Resp 13 02/18/19 20:08 BP 117/63 02/18/19 20:08 Pulse Ox 98 02/18/19 20:08 Labs Result diagrams: 02/18/19 15:58 02/18/19 15:58 Labs: Laboratory Results - last 24 hr 02/18/19 02/18/19 02/18/19 15:58 15:58 15:58 WBC 9.95 RBC 3.93 L Hgb 12.3 L Hct 38.6 L MCV 98.2 H MCH 31.3 MCHC 31.9 L RDW 16.1 H Plt Count 244 MPV 9.5 Immature Gran % 0.2 Neutrophils % 81.9 Lymphocytes % 8.3 Monocytes % 8.4 Eosinophils % 0.9 Basophils % 0.3 Absolute Neutrophils 8.14 H Absolute Lymphocytes 0.83 L Absolute Monocytes 0.84 H Absolute Eosinophils 0.09 Absolute Basophils 0.03 PT 33.1 H INR 3.4 H Sodium 138 Potassium 4.1 Chloride 99 Carbon Dioxide 26.5 Anion Gap 12.5 H BUN 39 H Creatinine 2.36 H Estimated GFR/1.73 m2 27.67 Glucose 148 H Lactate Calcium 9.0 Total Bilirubin 1.2 H AST 31 ALT 41 Alkaline Phosphatase 148 H Total Protein 7.3 Albumin 3.8 Urine Color Urine Clarity Urine pH Ur Specific [place] Urine Protein Urine Ketones Urine Blood Urine Nitrite Urine Bilirubin Urine Urobilinogen Ur Leukocyte Esterase Urine RBC Urine WBC Ur Epithelial Cells Urine Crystals Urine Bacteria Urine Casts Urine Mucus Urine Other Ur Culture Indicated? Urine Glucose 02/18/19 02/18/19 16:55 20:00 WBC RBC Hgb Hct MCV MCH MCHC RDW Plt Count MPV Immature Gran % Neutrophils % Lymphocytes % Monocytes % Eosinophils % Basophils % Absolute Neutrophils Absolute Lymphocytes Absolute Monocytes Absolute Eosinophils Absolute Basophils PT INR Sodium Potassium Chloride Carbon Dioxide Anion Gap BUN Creatinine Estimated GFR/1.73 m2 Glucose Lactate 1.9 H Calcium Total Bilirubin AST ALT Alkaline Phosphatase Total Protein Albumin Urine Color Yellow Urine Clarity Clear Urine pH 6.0 Ur Specific [place] 1.015 Urine Protein Negative Urine Ketones Negative Urine Blood Trace-intact H Urine Nitrite Negative Urine Bilirubin Negative Urine Urobilinogen 0.2 Ur Leukocyte Esterase Negative Urine RBC Negative Urine WBC Negative Ur Epithelial Cells Rare Urine Crystals Negative Urine Bacteria Negative Urine Casts Negative Urine Mucus Negative Urine Other Negative Ur Culture Indicated? No Urine Glucose Negative
== END 2019-02-18 21:15 | disposition home or self-care (01) ==
PROVIDERS: Emergency Provider Student in an Organized Health Care Education/Training Program; PCP Family Medicine
DX: L03.115 Cellulitis of right lower limb (principal); R10.12 Left upper quadrant pain; K65.9 Peritonitis, unspecified; R79.1 Abnormal coagulation profile; T45.515A Adverse effect of anticoagulants, initial encounter; Z79.01 Long term (current) use of anticoagulants; E11.9 Type 2 diabetes mellitus without complications; Z79.84 Long term (current) use of oral hypoglycemic drugs; I10 Essential (primary) hypertension
CPT/HCPCS: 36415; 80053; 99252; 99283; 99285; 74176; 81003; 81015; 83605; 85025; 85610

== ENCOUNTER → 2019-02-27 13:05 | Outpatient (BNVA) | payer MEDICARE, BC, SELFPAY | PROVIDERS: PCP Family Medicine; Referring Provider Family Medicine; Visit Provider Surgery | DX: Z51.89 Encounter for other specified aftercare (principal); E11.42 Type 2 diabetes mellitus with diabetic polyneuropathy; R60.0 Localized edema; I89.0 Lymphedema, not elsewhere classified; I83.019 Varicose veins of right lower extremity with ulcer of unspecified site; I83.029 Varicose veins of left lower extremity with ulcer of unspecified site; L97.919 Non-pressure chronic ulcer of unspecified part of right lower leg with unspecified severity; L97.929 Non-pressure chronic ulcer of unspecified part of left lower leg with unspecified severity | CPT/HCPCS: 29580; 99203; 99214 ==

== ENCOUNTER → 2019-03-06 12:59 | Outpatient (BNVA) | payer MEDICARE, BC, SELFPAY | PROVIDERS: PCP Family Medicine; Referring Provider Family Medicine; Visit Provider Surgery | DX: I83.019 Varicose veins of right lower extremity with ulcer of unspecified site (principal); I83.029 Varicose veins of left lower extremity with ulcer of unspecified site; E11.42 Type 2 diabetes mellitus with diabetic polyneuropathy; I10 Essential (primary) hypertension; Z79.84 Long term (current) use of oral hypoglycemic drugs; I63.9 Cerebral infarction, unspecified; I50.9 Heart failure, unspecified; J44.9 Chronic obstructive pulmonary disease, unspecified | CPT/HCPCS: 29580; 99213 ==

== ENCOUNTER → 2019-03-13 13:29 | Outpatient (BNVA) | payer MEDICARE, BC, SELFPAY | PROVIDERS: PCP Family Medicine; Referring Provider Family Medicine; Visit Provider Surgery | DX: L97.301 Non-pressure chronic ulcer of unspecified ankle limited to breakdown of skin (principal); I83.019 Varicose veins of right lower extremity with ulcer of unspecified site; I83.029 Varicose veins of left lower extremity with ulcer of unspecified site; Z51.89 Encounter for other specified aftercare; L97.919 Non-pressure chronic ulcer of unspecified part of right lower leg with unspecified severity; L97.929 Non-pressure chronic ulcer of unspecified part of left lower leg with unspecified severity; I89.0 Lymphedema, not elsewhere classified; L03.818 Cellulitis of other sites; L02.818 Cutaneous abscess of other sites | CPT/HCPCS: 29580; 99213 ==

== ENCOUNTER → 2019-03-16 14:24 | Outpatient (BNVA) | payer MEDICARE, BC, SELFPAY | PROVIDERS: PCP Family Medicine; Referring Provider Family Medicine; Visit Provider Student in an Organized Health Care Education/Training Program | DX: M75.81 Other shoulder lesions, right shoulder (principal); M19.011 Primary osteoarthritis, right shoulder | CPT/HCPCS: 99213 ==

== ENCOUNTER → 2019-03-25 12:40 | Outpatient (BNVA) | payer MEDICARE, BC, SELFPAY | PROVIDERS: PCP Family Medicine; Referring Provider Family Medicine; Visit Provider Internal Medicine Cardiovascular Disease | DX: I49.5 Sick sinus syndrome (principal); Z95.0 Presence of cardiac pacemaker; I48.91 Unspecified atrial fibrillation; I42.9 Cardiomyopathy, unspecified; I10 Essential (primary) hypertension; E11.22 Type 2 diabetes mellitus with diabetic chronic kidney disease; N18.9 Chronic kidney disease, unspecified | CPT/HCPCS: 99204; 99215 ==

== ENCOUNTER 2019-04-24 02:03 | Outpatient (CLI) | payer MEDICARE, BC, SELFPAY ==
--- NOTE | 2019-04-24 | PFT_ITS ---
PULMONARY FUNCTION TEST REPORT Patient - Sathya Simental DATE OF SERVICE April 24, 2019 REQUESTING PROVIDER Joanne Brewster M.D. INTERPRETATION OF STUDY Spirometry shows no evidence of obstructive airways disease. No bronchodilator response. LUNG VOLUMES - Lung volumes mild restriction. DIFFUSION CAPACITY- Moderately reduced, which is mildly reduced when corrected to alveolar volume. AIRWAY RESISTANCE - Normal. IMPRESSION Mild restrictive lung disease associated with moderate diffusion defect. Clinical correlation recommended. The differential diagnosis includes underlying restrictive lung disease, developing pulmonary fibrosis is certainly a consideration if clinically indicated further advanced imaging or clinical evaluation is recommended. Yaima Wilkerson M.D. Joe DD - 04/24/19
[2019-04-24] MEDS: Inhaler, Assist Device 1 EACH MC (13:51)
[2019-04-24] MEDS: Albuterol HFA 18 GM 200 PUFF INH IH (13:51)
== END 2019-04-24 02:23 ==
PROVIDERS: PCP Family Medicine; Visit Provider Family Medicine
DX: I50.9 Heart failure, unspecified (principal); R06.09 Other forms of dyspnea; R05 Cough; J98.4 Other disorders of lung
CPT/HCPCS: 94060; 94726; 94729

== ENCOUNTER 2019-05-14 18:04 | Inpatient (IN) | payer MEDICARE, BC, SELFPAY ==
[2019-05-14] VITALS (42 sets, daily range): BP systolic 65–128; BP diastolic 35–91; PULSE 60–104; RESP 13–25; TEMP 36.6–37.7; O2SAT 91–97
--- NOTE | 2019-05-14 18:15 | DI.RAD_ITS ---
EXAM: XR SHOULDER RT COMPLETE 2+V CLINICAL HISTORY: fall, pain, swelling. TECHNIQUE: 2D digital imaging was performed. COMPARISON: XR SHOULDER RT COMPLETE 2+V from 01/19/2019 FINDINGS: BONES: No acute fracture is present. No bony destructive lesion is seen. There are degenerative lizeth nges of the AC joint with inferior spurring. There is mild spurring from the glenoid, inferior aspec t of the acromion and greater tuberosity. The humeral head is again noted to be superiorly positione d consistent with a chronic rotator cuff tear. JOINTS: No dislocation present. SOFT TISSUE: Normal. IMPRESSION: Degenerative changes. No acute abnormality.. DATA REPOSITORY: RADIATION DOSE DELIVERED:
--- NOTE | 2019-05-14 18:15 | DI.RAD_ITS ---
EXAM: XR FOOT LT COMPLETE Portable CLINICAL HISTORY: fall, pain sole. TECHNIQUE: 2D digital imaging was performed portably. COMPARISON: No exams were available for comparison FINDINGS: The exam is somewhat limited due to motion. BONES: There is a fracture extending obliquely through the mid to distal metatarsal. There is mild d isplacement. There is some callus formation, consistent with a subacute fracture. No additional fra ctures are seen. Heel spurs are noted. JOINTS: No dislocation present. SOFT TISSUE: Mild soft tissue swelling. No foreign body. IMPRESSION: Subacute fracture of the 5th metatarsal. DATA REPOSITORY: RADIATION DOSE DELIVERED:
[2019-05-14 18:57] LABS: Abs Immature Grans 0.04 k/cumm (0.0-0.09); Absolute Basophil Count 0.01 k/cumm (0.0-0.2); Absolute Eosinophil Count 0.06 k/cumm (0.0-0.7); Absolute Lymphocyte Count 0.51 k/cumm (1.2-3.4); Absolute Monocyte Count 0.91 k/cumm (0.11-0.7); Basophils % 0.1; Eosinophils % 0.7; HCT 36.1 % (40.0-50.0); HGB 11.9 g/dL (13.5-17.5); Immature Grans % 0.5 %; Lymphocytes % 5.9; Mean Corpuscular Hemoglobin 30.4 pg (27.0-33.0); Mean Corpuscular Volume 92.3 fL (80-95); Mean Platelet Volume 9.1 fL (8.0-11.0); Monocytes % 10.5; Neutrophils % 82.3; Platelet Count 296 x1000/uL (130-400); RBC 3.91 m/cumm (4.50-6.00); White Blood Cell Count 8.63 k/cumm (4.4-10.8)
[2019-05-14 19:08] LABS: Prothrombin Time 49.1 sec (9.3-11.0)
[2019-05-14 19:10] LABS: ALT 48 U/L (16-63); AST 64 U/L (15-37); Albumin 2.6 g/dL (3.4-5.0); Alkaline Phosphatase 285 U/L (46-116); Anion Gap 9.7 mmol/L (3-11); BUN 35 mg/dL (7-18); C-Reactive Protein > 25.00 mg/dL (0.0-0.3); CO2 26.3 mmol/L (21.0-32.0); CREATININE 3.14 mg/dL (0.70-1.30); Calcium 8.7 mg/dL (8.5-10.1); Chloride 92 mmol/L (98-107); Glucose 194 mg/dL (74-106); LDH 266 U/L (85-227); Potassium 3.8 mmol/L (3.5-5.1); Sodium 128 mmol/L (136-145); Total Protein 7.5 g/dL (6.4-8.2)
--- NOTE | 2019-05-14 19:10 | DI.RAD_ITS ---
EXAM: XR PORTABLE CHEST AP CLINICAL HISTORY: cough TECHNIQUE: 2D digital imaging was performed. COMPARISON: XR CHEST 2V PA LATERAL from 06/09/2018 FINDINGS: Cardiomegaly, sternal wires and pacemaker again noted. Leads leads overlie the chest. There are mi ld underlying fibrotic changes. No superimposed infiltrate, effusion or pulmonary edema is seen. IMPRESSION: Cardiomegaly. No acute abnormality. No evidence of pneumonia.
[2019-05-14 19:14] LABS: Lactate 2.8 mmol/L (0.6-1.4)
[2019-05-14 19:15] LABS: INR 5.1 (0.9-1.1)
[2019-05-14 19:23] LABS: D-Dimer 5247 ng/mlFEU (<500)
--- NOTE | 2019-05-14 19:30 | DI.VRAD_ITS ---
PROCEDURE INFORMATION: Exam: XR Chest, 1 View Exam date and time: 05/14/2019 7:09 PM Age: 68 years old Clinical indication: Cough TECHNIQUE: Imaging protocol: XR of the chest Views: 1 view. COMPARISON: No relevant prior studies available. FINDINGS: Tubes, catheters and devices: An AICD generator is seen overlying the left axilla with leads in the right atrium and right ventricle. Lungs: There is no evidence of lung consolidation. There is mild cardiopulmonary congestion without pulmonary edema. Pleural space: There is no pleural effusion or pneumothorax. Heart/Mediastinum: There is moderate cardiomegaly. Bones/joints: There has been a median sternotomy. The spine demonstrates mild degenerative changes at multiple levels. IMPRESSION: Moderate cardiomegaly. Mild cardiopulmonary congestion without pulmonary edema. No evidence of pneumonia. Dictated and Authenticated by: Beni Juan MD. Ordering:LUCIANO Beverly MD
--- NOTE | 2019-05-14 19:33 | DI.VRAD_ITS ---
PROCEDURE INFORMATION: Exam: XR Left Foot Complete Exam date and time: 05/14/2019 7:09 PM Age: 68 years old Clinical indication: Patient HX: Left foot pain x2 weeks. Fell TECHNIQUE: Imaging protocol: XR Left foot. Views: 3 or more views. COMPARISON: CR LEFT ANKLE COMPLETE 07/16/2017 11:48 AM FINDINGS: Bones/joints: There is an oblique fracture of the distal half of the 5th metatarsal bone with minimal separation of fragments. There is mild callus formation consistent with a subacute fracture. There is no dislocation. No blastic or bony destructive lesions identified. No line there is a 4 mm plantar calcaneal spur. There is an enthesophyte on the posterior aspect of the calcaneus bone at the insertion of the Achilles tendon without evidence of inflammation. Soft tissues: There are no radiopaque foreign bodies in the visualized soft tissues. IMPRESSION: Subacute oblique fracture through the distal half of the 5th metatarsal with minimal separation of fragments. Dictated and Authenticated by: Beni Juan MD. Ordering:LUCIANO Beverly MD
--- NOTE | 2019-05-14 19:39 | DI.VRAD_ITS ---
PROCEDURE INFORMATION: Exam: XR Right Shoulder Exam date and time: 05/14/2019 6:55 PM Age: 68 years old Clinical indication: Pain; Shoulder; Right TECHNIQUE: Imaging protocol: XR Right shoulder. Views: 2 or more views. COMPARISON: No relevant prior studies available. FINDINGS: Bones/joints: There is no acute fracture or dislocation. There is superior subluxation of the humeral head that lies in subacromial position. There are degenerative changes of the right acromioclavicular joint with a small inferior osteophyte. No blastic or bony destructive lesions identified. Median sternotomy wires are seen in expected position. Soft tissues: No radiopaque foreign bodies are seen in the visualized soft tissues. Other findings: There are mild diffuse osteopenic changes. IMPRESSION: 1. No acute fracture or dislocation. 2. Superior subluxation of the humeral head as may be seen in rotator cuff tear. 3. Degenerative changes of the right acromioclavicular joint. Dictated and Authenticated by: Beni Juan MD. Ordering:LUCIANO Beverly MD
--- NOTE | 2019-05-14 20:03 | ED.GENADUL_ITS ---
Discharge Plan Disposition Patient Disposition: [facility] INPATIENT Condition: Stable Discharge Details Chief Complaint: SOB Clinical Impression: Fracture of fifth metatarsal bone of left foot, Swelling of joint of right shoulder, Cough, Supratherapeutic INR Primary Care Provider: Joanne Brewster ED Provider: Rush Laureano Home Meds and New Rx's Prescriptions: No Action ropinirole 2 mg tablet 2 mg PO QHS RF: 0 tamsulosin [Flomax] 0.4 mg capsule 0.4 mg PO DAILY RF: 0 aspirin [Aspir-Low] 81 MG tablet,delayed release (DR/EC) 81 mg PO DAILY RF: 0 magnesium oxide 500 MG capsule 500 mg PO BID Qty: 1 RF: 0 amiodarone 200 MG tablet 200 mg PO DAILY RF: 0 cyclobenzaprine 10 mg tablet 10 mg PO TID RF: 0 polyethylene glycol 3350 [Miralax] 17 gram/dose powder 17 gm PO DAILY RF: 0 lidocaine 5 % ointment 1 applic TP BID RF: 0 carvedilol 25 MG tablet 25 mg PO BID Qty: 0 RF: 0 zolpidem 12.5 MG tablet,ext release multiphase 12.5 mg PO HS PRN PRNRF: 0 riboflavin (vitamin B2) [Vitamin B-2] 100 mg tablet 200 mg PO BID RF: 0 furosemide [Lasix] 40 mg tablet 40 mg PO BID RF: 0 metformin 500 MG tablet extended release 24 hr 500 mg PO BID RF: 0 gabapentin 600 MG tablet 600 mg PO BID RF: 0 albuterol sulfate [ProAir HFA] 8.5 GM HFA aerosol inhaler 1 puff IN Q4H PRN PRNRF: 0 cyanocobalamin (vitamin B-12) [Vitamin B-12] 1,000 mcg Tablet 1,000 mcg PO DAILY RF: 0 warfarin 5 mg Tablet See Rx Instructions .ROUTE .COMPLEX RF: 0 loratadine 10 mg Tablet 10 mg PO DAILY RF: 0 tramadol [Ultram] 50 mg tablet 50 mg PO BID PRN (Reason: severe pain) Qty: 8 RF: 0 rosuvastatin [Crestor] 20 MG tablet 20 mg PO DAILY RF: 0 folic acid 1 mg Tablet 800 mcg/kg PO DAILY RF: 0 fluticasone propionate [Flonase Allergy Relief] 50 mcg/actuation [place],Suspension 1 spray INTRANASAL DAILY PRNRF: 0 spironolactone 25 mg Tablet 50 mg PO DAILY RF: 0 Medical Decision Making 68-year-old male with multiple medical problems including history of atrial fibrillation on Coumadin, here with increasing cough and shortness of breath over the past couple days, right shoulder pain and swelling, and left foot pain and tenderness. Patient is hemodynamically stable and saturating well. No respiratory distress. Patient is currently taking Augmentin as prescribed by PCP for cough. Cough and shortness of breath has worsened despite antibiotics. Concern for fracture of the shoulder and fracture of the foot. X-rays obtained. X-ray of the right shoulder was interpreted by radiology: No acute fracture dislocation. Superior subluxation of the humeral head as may be seen in rotator cuff tear. Degenerative changes of the right AC joint. X-ray of the foot was interpreted by radiology: Subacute oblique fracture through the distal half of the fifth metatarsal with minimal separation of fragments. We will place Ortho shoe on foot splint. I suspect the patient's shoulder swelling is secondary to hemarthrosis. I am reluctant to drain this at this time given supratherapeutic INR. Plan will be to hold Coumadin. Plan for orthopedic consultation tomorrow. Screening ECG was reviewed and interpreted by me: Possible atrial fibrillation with ectopic ventricular couplets, left bundle branch block, nondiagnostic. Given the patient's worsening cough and shortness of breath I did elect to check d-dimer, CRP and LDH which are all elevated. No lymphocytosis or leukocytosis. Lactate is elevated. Patient has received IV fluid bolus 500 mL here in the emergency department. He is hemodynamically stable. Consider Covid. Patient is a PUI and will be admitted to the rec you were coded definitive testing will be performed. I did speak with Dr. Hook who will admit the patient. He will initiate treatment with azithromycin. Blood cultures are pending on admission. Care transition to Dr. Hook at time of admission. HPI General Mode of arrival: ambulatory . Date/Time Provider Initiated Documentation: 05/14/19 18:10 . Limitations to Documentation: no limitations . Information obtained by: patient . HPI Narrative: 68-year-old male with multiple medical problems including history of frequent falls, here with chief complaint of shortness of breath. Patient notes shortness of breath and increased cough over the past couple days. He states his been feeling short of breath and has had a cough over the past month but definitely worse the past few days. He denies associated fever. Cough is dry. No modifiers. He also notes pain and swelling of his right shoulder. He states he has chronic pain in his shoulder but it seems of worsened and has had increased swelling over the past couple days. He does state that he fell again a few days ago. He also notes some left foot pain after the fall. Patient denies chest pain. Related Data Home Medications Medication Instructions Recorded Confirmed zolpidem 12.5 mg PO HS PRN PRN 06/27/12 05/14/19 carvedilol 25 mg PO BID #0 07/02/12 05/14/19 aspirin [Aspir-Low] 81 mg PO DAILY tab-cap 09/18/12 05/14/19 magnesium oxide 500 mg PO BID #1 09/18/12 05/14/19 metformin 500 mg PO BID 06/28/13 05/14/19 amiodarone 200 mg PO DAILY tab-cap 09/10/14 05/14/19 rosuvastatin [Crestor] 20 mg PO DAILY 03/29/16 05/14/19 albuterol sulfate [ProAir HFA] 1 puff IN Q4H PRN PRN 06/03/17 03/25/19 gabapentin 600 mg PO BID 06/03/17 05/14/19 riboflavin (vitamin B2) 100 mg 200 mg PO BID tab 12/04/17 05/14/19 tablet cyanocobalamin (vitamin B-12) 1,000 mcg PO DAILY 02/16/18 05/14/19 [Vitamin B-12] warfarin See Rx Instructions .ROUTE .COMPLEX 02/16/18 05/14/19 ropinirole 2 mg tablet 2 mg PO QHS 03/24/18 05/14/19 furosemide 40 mg tablet 40 mg PO BID tab 06/03/18 05/14/19 fluticasone propionate [Flonase 1 spray INTRANASAL DAILY PRN 06/09/18 03/25/19 Allergy Relief] folic acid 800 mcg/kg PO DAILY 06/09/18 05/14/19 spironolactone 50 mg PO DAILY 11/28/18 05/14/19 tamsulosin 0.4 mg capsule 0.4 mg PO DAILY 12/02/18 05/14/19 loratadine 10 mg PO DAILY 02/18/19 05/14/19 tramadol [Ultram] 50 mg PO BID PRN #8 tab 02/18/19 03/25/19 cyclobenzaprine 10 mg tablet 10 mg PO TID 02/24/19 03/25/19 lidocaine 5 % topical ointment 1 applic TP BID 02/24/19 03/25/19 polyethylene glycol 3350 17 17 gm PO DAILY 02/24/19 03/25/19 gram/dose oral powder Previous Rx's Medication Instructions Recorded carvedilol 25 mg PO BID #0 07/02/12 tramadol [Ultram] 50 mg PO BID PRN #8 tab 02/18/19 Allergies Allergy/AdvReac Type Severity Reaction Status Date / Time dofetilide Allergy Unknown Unverified 05/14/19 18:15 General Stated Complaint: SOB SUELLEN: 3 Review of Systems All systems reviewed & are unremarkable except as noted in HPI and below Constitutional Constitutional: Denies fever(s) Cardiovascular Cardiovascular: Reports chest pain and Reports dyspnea Respiratory Respiratory: Reports cough and Reports dyspnea Musculoskeletal Musculoskeletal: Reports as per HPI [facility] Medical History Atrial fibrillation Benign hypertension Biceps tendon rupture, proximal (Acute) BPH (benign prostatic hyperplasia) Cellulitis and abscess of other specified site (Acute) Cervical radiculopathy chronic anticoagulation Chronic congestive heart failure non ischemic cardiomyopathy Chronic pain (Chronic) Closed traumatic nondisplaced fracture of two ribs of left side with delayed healing (Acute) Depression Diabetes mellitus Diabetes mellitus associated with genetic syndrome Diverticulosis DNI (do not intubate) (Acute) DNR (do not resuscitate) (Acute) H/O mitral valve replacement Hyperlipidemia Hypertension Leg edema (Acute) Leg edema, left (Acute) Leg edema, right (Acute) Lumbar back pain Lymphedema of both lower extremities (Acute) Mitral valve disorder Neck pain Non-healing fracture (Acute) Obesity (Chronic) Obstructive sleep apnea Onychomycosis (Acute) Osteoarthritis Palliative care patient (Acute) Restless leg syndrome Venous stasis (Acute) Venous stasis dermatitis of both lower extremities (Acute) Venous stasis of both lower extremities (Acute) Venous stasis ulcer of ankle limited to breakdown of skin (Acute) Venous stasis ulcers of both lower extremities (Acute) Surgical History Fusion CMC joint (01/19/09) left thumb mitral valve replacement Pacemaker (05/22/16) (pacemaker end of battery life, change ICD to VVI) resection arthroplasty right thumb (01/17/09) Tonsillectomy and adenoidectomy Trigger Finger release (01/02/11) RIGHT MIDDLE, LEFT MIDDLE Trigger Finger release (04/29/12) RIGHT MIDDLE, LEFT MIDDLE Vasectomy Family History Mother , 49 yo Obesity Stroke Father , 55 yo Diabetes COPD (chronic obstructive pulmonary disease) Brother , 49 yo Heart disease Hypertension Brother Heart disease Myocardial infarct ICD (implantable cardioverter-defibrillator) battery depletion Son No problems noted. Son Asperger's disorder Anxiety ADHD Social History Smoking/Tobacco Use Status: Former Tobacco Use Alcohol Intake: current Alcohol Intake frequency: a few times a week Alcohol type: beer and hard liquor Details: drank to excess for about 2 years after his in Jan 2013 Drug use: Current Sobriety Substance use type: does not use Adopted: No Caregiver/Support person: Yes (lives with son w/ aspergronal) Details: second son comes to home to help occassionally. in charge of finances Household members: children Housing: house Number of Children: 2 number of grandchildren: 0 Communication Needs: Corrective Lenses Education Level: college Do you need help understanding health information?: Rarely current occupation: retired Sexually active: No Current gender identity: male What is your relationship status?: How often do you talk on the phone with friends or family?: once per week How often do you get together with friends or relatives?: three or more times per week Panel score (0-1 are the most socially isolated patients): 1 What type of physical activity do you participate in: none and sedentary lifestyle Special kinga needs: No Agree to transfusion: Yes Seatbelt use: always Working smoke detector in home: Yes Fire extinguisher in home: Yes Do you feel safe at home: Yes Do you feel safe in your relationship?: Yes Would you like helpful sources: Yes Additional Social history: Exam Const General: cooperative and no acute distress HENMT Mouth: moist mucous membranes Eyes Conjunctivae: normal conjunctivae Sclera: normal sclerae Neck Neck: trachea midline and supple Resp Effort & Inspection: normal respiratory effort and cough Auscultation: clear to auscultation bilaterally, no rales, no rhonchi and no wheezes Cardio Jugular venous pressure: no JVD Rate: regular rate and not tachycardic Rhythm: regular rhythm GI Palpation: soft, not firm, no guarding, no masses, not rigid and nontender Skin General skin exam: no rashes or lesions noted Neuro General: patient alert, patient awake and tone normal Extrem Right upper extremity: shoulder/upper arm Details: tenderness, swelling Location: of the shoulder joint, axillary nerve sensory function normal and abnormal ROM Details: pain with active ROM Details: in ABduction and in internal rotation; no unusual warmth and no other (Erythema) Left lower extremity: foot Details: tenderness Location: of the plantar foot Psych Appearance: grossly normal Mental Status: mental status grossly normal Course Vital Signs Vital signs: Vital Signs Temperature 36.6 C 05/14/19 18:07 Pulse 73 05/14/19 18:07 Respiratory Rate 15 05/14/19 18:07 Blood Pressure 118/73 05/14/19 18:07 Pulse Oximetry 95 05/14/19 18:07 Temperature 36.6 C 05/14/19 18:07 Temperature Source Skin 05/14/19 18:07 Pulse 74 05/14/19 19:15 Pulse 65 05/14/19 19:30 Respiratory Rate 15 05/14/19 19:30 Respiratory Effort 05/14/19 18:28 Respiratory Depth Normal 05/14/19 18:28 Respiratory Pattern Normal 05/14/19 18:28 Blood Pressure 117/91 H 05/14/19 19:15 Blood Pressure Mean 97 05/14/19 19:15 Blood Pressure Position Sitting 05/14/19 18:07 Pulse Oximetry 93 L 05/14/19 19:30 Oxygen Delivery Method Room Air 05/14/19 18:07 Oxygen Flow Rate 0 05/14/19 18:07 Pain Level 10 05/14/19 18:07 Lab/Test Results Lab/Test Results: 05/14/19 18:35 Blood Blood Culture - Pending 05/14/19 18:31 Blood Blood Culture - Pending Laboratory Tests Range/Units 05/14/19 05/14/19 05/14/19 18:32 18:35 18:35 WBC (4.4-10.8) k/cumm RBC (4.50-6.00) m/cumm Hgb (13.5-17.5) g/dL Hct (40.0-50.0) % MCV (80-95) fL MCH (27.0-33.0) pg MCHC (32.0-36.0) g/dL RDW (11.8-14.1) % Plt Count (130-400) x1000/uL MPV (8.0-11.0) fL Immature Gran % % Neutrophils % Lymphocytes % Monocytes % Eosinophils % Basophils % Absolute Neutrophils (1.2-6.7) k/cumm Absolute Lymphocytes (1.2-3.4) k/cumm Absolute Monocytes (0.11-0.7) k/cumm Absolute Eosinophils (0.0-0.7) k/cumm Absolute Basophils (0.0-0.2) k/cumm ESR Cancelled PT (9.3-11.0) sec INR (0.9-1.1) D-Dimer (<500) ng/mlFEU Sodium (136-145) mmol/L 128 L Potassium (3.5-5.1) mmol/L 3.8 Chloride (98-107) mmol/L 92 L Carbon Dioxide (21.0-32.0) mmol/L 26.3 Anion Gap (3-11) mmol/L 9.7 BUN (7-18) mg/dL 35 H Creatinine (0.70-1.30) mg/dL 3.14 H Estimated GFR/1.73 m2 (mL/min/1.73m2) 19.90 Glucose (74-106) mg/dL 194 H Lactate (0.6-1.4) mmol/L 2.8 H* Calcium (8.5-10.1) mg/dL 8.7 Total Bilirubin (0.2-1.0) mg/dL 1.0 AST (15-37) U/L 64 H ALT (16-63) U/L 48 Alkaline Phosphatase (46-116) U/L 285 H Lactate Dehydrogenase (85-227) U/L 266 H C-Reactive Protein (0.0-0.3) mg/dL Total Protein (6.4-8.2) g/dL 7.5 Albumin (3.4-5.0) g/dL 2.6 L Range/Units 05/14/19 05/14/19 05/14/19 18:35 18:35 18:35 WBC (4.4-10.8) k/cumm 8.63 RBC (4.50-6.00) m/cumm 3.91 L Hgb (13.5-17.5) g/dL 11.9 L Hct (40.0-50.0) % 36.1 L MCV (80-95) fL 92.3 MCH (27.0-33.0) pg 30.4 MCHC (32.0-36.0) g/dL 33.0 RDW (11.8-14.1) % 17.0 H Plt Count (130-400) x1000/uL 296 MPV (8.0-11.0) fL 9.1 Immature Gran % % 0.5 Neutrophils % 82.3 Lymphocytes % 5.9 Monocytes % 10.5 Eosinophils % 0.7 Basophils % 0.1 Absolute Neutrophils (1.2-6.7) k/cumm 7.10 H Absolute Lymphocytes (1.2-3.4) k/cumm 0.51 L Absolute Monocytes (0.11-0.7) k/cumm 0.91 H Absolute Eosinophils (0.0-0.7) k/cumm 0.06 Absolute Basophils (0.0-0.2) k/cumm 0.01 ESR PT (9.3-11.0) sec 49.1 H INR (0.9-1.1) 5.1 H* D-Dimer (<500) ng/mlFEU Sodium (136-145) mmol/L Potassium (3.5-5.1) mmol/L Chloride (98-107) mmol/L Carbon Dioxide (21.0-32.0) mmol/L Anion Gap (3-11) mmol/L BUN (7-18) mg/dL Creatinine (0.70-1.30) mg/dL Estimated GFR/1.73 m2 (mL/min/1.73m2) Glucose (74-106) mg/dL Lactate (0.6-1.4) mmol/L Calcium (8.5-10.1) mg/dL Total Bilirubin (0.2-1.0) mg/dL AST (15-37) U/L ALT (16-63) U/L Alkaline Phosphatase (46-116) U/L Lactate Dehydrogenase (85-227) U/L C-Reactive Protein (0.0-0.3) mg/dL > 25.00 H Total Protein (6.4-8.2) g/dL Albumin (3.4-5.0) g/dL Range/Units 05/14/19 18:35 WBC (4.4-10.8) k/cumm RBC (4.50-6.00) m/cumm Hgb (13.5-17.5) g/dL Hct (40.0-50.0) % MCV (80-95) fL MCH (27.0-33.0) pg MCHC (32.0-36.0) g/dL RDW (11.8-14.1) % Plt Count (130-400) x1000/uL MPV (8.0-11.0) fL Immature Gran % % Neutrophils % Lymphocytes % Monocytes % Eosinophils % Basophils % Absolute Neutrophils (1.2-6.7) k/cumm Absolute Lymphocytes (1.2-3.4) k/cumm Absolute Monocytes (0.11-0.7) k/cumm Absolute Eosinophils (0.0-0.7) k/cumm Absolute Basophils (0.0-0.2) k/cumm ESR PT (9.3-11.0) sec INR (0.9-1.1) D-Dimer (<500) ng/mlFEU 5247 H Sodium (136-145) mmol/L Potassium (3.5-5.1) mmol/L Chloride (98-107) mmol/L Carbon Dioxide (21.0-32.0) mmol/L Anion Gap (3-11) mmol/L BUN (7-18) mg/dL Creatinine (0.70-1.30) mg/dL Estimated GFR/1.73 m2 (mL/min/1.73m2) Glucose (74-106) mg/dL Lactate (0.6-1.4) mmol/L Calcium (8.5-10.1) mg/dL Total Bilirubin (0.2-1.0) mg/dL AST (15-37) U/L ALT (16-63) U/L Alkaline Phosphatase (46-116) U/L Lactate Dehydrogenase (85-227) U/L C-Reactive Protein (0.0-0.3) mg/dL Total Protein (6.4-8.2) g/dL Albumin (3.4-5.0) g/dL
--- NOTE | 2019-05-14 20:05 | W.PM.HP.N ---
Date of service: 05/14/19 Time of Service: 22:45 Assessment and Plan Assessment and plan (1) Dyspnea: Start date: 05/14/19 Status: Acute Assessment and plan: This is a 68-year-old gentleman who came to the ED mostly for his dyspnea and worsening cough. He was screened for COVID-19 and placed in the respiratory medical unit. He was not hypoxic but did continue with a dry cough and progressed with low-grade fever. He was not dyspneic at rest. Patient will be observed with cardiac monitoring and oxygen as needed. He was started on Zithromax IV. We will follow-up his COVID-19 screening and blood/urine cultures adjusting treatment as indicated. The patient is presently comfortable but is a strong DNR/DNI if he does test positive for coronavirus and progresses with respiratory complications. He adamantly stated that he did not want to be intubated. Qualifiers: Dyspnea type: shortness of breath Qualified Code(s): R06.02 - Shortness of breath (2) Cough: Start date: 05/14/19 Status: Acute Assessment and plan: Continue IV Zithromax and follow-up on cultures adjusting antibiotic therapy as needed. Re-image if indicated. Supportive care. (3) Hypoprothrombinemia: Start date: 05/14/19 Status: Acute Assessment and plan: Hold Coumadin and follow-up PT/INR adjusting Coumadin therapy as indicated. If orthopedics wants attempt to taphis right shoulder which may have a hemarthrosis, patient may need PT/INR to be toward normal but with mechanical mitral valve we should avoid normalizing his lab. (4) Swelling of joint of right shoulder: Status: Chronic Assessment and plan: Possible hemarthrosis per ED physician with imaging or fracture. Orthopedics has been consulted to evaluate. (5) CKD (chronic kidney disease): Status: Chronic Assessment and plan: Slightly worsened recently and probably over-diuresed for CHF. He did receive some IV fluids but these been held to avoid fluid overload or worsening of his respiratory status if he does have a coronavirus infection. His Lasix will be held with continuation of the spironolactone. Follow-up on lab. Qualifiers: Chronic kidney disease stage: stage 4 (severe) Qualified Code(s): N18.4 - Chronic kidney disease, stage 4 (severe) (6) Chronic congestive heart failure: Status: Chronic Assessment and plan: His last left ventricular ejection fraction by record was around 35%. Restart Lasix as indicated. This comorbid problem may complicate a coronavirus infection. Consider repeat echocardiogram. Troponins will be trended over night. His EKG had a left bundle branch block with no apparent ischemic changes. IV fluids have decreased. Lasix is being held with worsened CKD but the patient's other cardiac medication be continued. Lasix may be restarted at a lower dose tomorrow if needed. Qualifiers: Heart failure type: combined systolic and diastolic Qualified Code(s): I50.42 - Chronic combined systolic (congestive) and diastolic (congestive) heart failure (7) Fracture of fifth metatarsal bone of left foot: Start date: 05/14/19 Status: Acute Assessment and plan: Ortho shoe with weightbearing as tolerated. This is a nonsurgical fracture. Qualifiers: Encounter type: initial encounter Fracture type: closed Physeal involvement: not involving physis Qualified Code(s): S92.352A - Displaced fracture of fifth metatarsal bone, left foot, initial encounter for closed fracture History of Present Illness History of Present Illness Chief Complaint: Worsening cough and dyspnea last several days Narrative: This is a 70-year-old gentleman who lives at home with his 2 sons. One of his sons has Asperger's and his other son takes care of shopping and helps around the house. The patient has had symptoms of increased falling at home and weakness with his legs giving out. He did fall several days ago injuring his left foot and right shoulder which began to swell with pain over his deltoid region. He had ruptured his biceps tendon months ago and has reinjured it several times with this last fall worsening his pain and dysfunction. He cannot use his right upper extremity because of his severe pain. He has not noted any bruising but has an elevated PT/INR upon evaluation in the ED on the day of admission. His shoulder pain is severe but what brought him to the ED was increased dyspnea with cough without chills or fever at home. He did have a low-grade temperature upon admission to the hospital and there was some concern of novel coronavirus infection with his symptoms and abnormal lab. He has not traveled but has had exposure from his son being in the community shopping for groceries and patient having recent visits to his local physician office. Patient has been seen by the local orthopedist for his right shoulder with his biceps tendon tears and falls with repeated injury to his shoulder since. Imaging in the ED did reveal chronic CHF changes on the chest x-ray but no infiltrates to suggest pneumonia, a fracture of the left fifth metatarsal which does not appear to be acute but subacute consistent with the patient's history of multiple falls and a negative x-ray of the right shoulder for fracture. The patient states that in doctor's office recently they thought he had a small clot in his right arm associated with his biceps tendon tears. Also he has had chronic pain and dysfunction of his right shoulder which has worsened recently with his multiple falls. Lab in the ED revealed a normal WBC count but markedly elevated d-dimer and C-reactive protein. His INR was also elevated at 5.1. His creatinine was higher than baseline and lactic acid was also elevated. With his complex of findings and now a low-grade fever, there is concern for COVID-19 infection along with his chronic problems exacerbated including mild dehydration from overdiuresis for his CHF possibly contributing to his lactic acidosis. The patient was screened for COVID-19 and had blood cultures and urine culture. He is eating and drinking and therfore after initial IV fluids he was changed to an IV saline lock to avoid fluid overload with his CHF and also in light of his possible progressive COVID-19 infection. Patient has multiple medical problems all of which are fairly stable except for his progressive weakness and falling recently. He does have a pacemaker with atrial fibrillation and clearly does not want resuscitation and is strong DNR/DNI having had his defibrillator changed to a simple pacemaker because it brought him back. Review of Systems Narrative: 13 point review is otherwise unrevealing or stable. Most of his complaints have been chronic including his present right shoulder pain. Most acute symptom is dyspnea with worsening cough. [facility] Medical History Atrial fibrillation Benign hypertension Biceps tendon rupture, proximal (Acute) BPH (benign prostatic hyperplasia) Cellulitis and abscess of other specified site (Acute) Cervical radiculopathy chronic anticoagulation Chronic congestive heart failure (Chronic) non ischemic cardiomyopathy Chronic pain (Chronic) CKD (chronic kidney disease) (Chronic) Closed traumatic nondisplaced fracture of two ribs of left side with delayed healing (Acute) Depression Diabetes mellitus Diabetes mellitus associated with genetic syndrome Diverticulosis DNI (do not intubate) (Acute) DNR (do not resuscitate) (Acute) H/O mitral valve replacement Hyperlipidemia Hypertension Leg edema (Acute) Leg edema, left (Acute) Leg edema, right (Acute) Lumbar back pain Lymphedema of both lower extremities (Acute) Mitral valve disorder Neck pain Non-healing fracture (Acute) Obesity (Chronic) Obstructive sleep apnea Onychomycosis (Acute) Osteoarthritis Palliative care patient (Acute) Restless leg syndrome Venous stasis (Acute) Venous stasis dermatitis of both lower extremities (Acute) Venous stasis of both lower extremities (Acute) Venous stasis ulcer of ankle limited to breakdown of skin (Acute) Venous stasis ulcers of both lower extremities (Acute) Surgical History Fusion CMC joint (01/19/09) left thumb mitral valve replacement Pacemaker (05/22/16) (pacemaker end of battery life, change ICD to VVI) resection arthroplasty right thumb (01/17/09) Tonsillectomy and adenoidectomy Trigger Finger release (01/02/11) RIGHT MIDDLE, LEFT MIDDLE Trigger Finger release (04/29/12) RIGHT MIDDLE, LEFT MIDDLE Vasectomy Family History Mother , 49 yo Obesity Stroke Father , 55 yo Diabetes COPD (chronic obstructive pulmonary disease) Brother , 49 yo Heart disease Hypertension Brother Heart disease Myocardial infarct ICD (implantable cardioverter-defibrillator) battery depletion Son No problems noted. Son Asperger's disorder Anxiety ADHD Social History Smoking/Tobacco Use Status: Former Tobacco Use Alcohol Intake: current Alcohol Intake frequency: a few times a week Alcohol type: beer and hard liquor Details: drank to excess for about 2 years after his in Jan 2013 Drug use: Current Sobriety Substance use type: does not use Adopted: No Caregiver/Support person: Yes (lives with son w/ aspergers) Details: second son comes to home to help occassionally. in charge of finances Household members: children Housing: house Number of Children: 2 number of grandchildren: 0 Communication Needs: Corrective Lenses Education Level: college Do you need help understanding health information?: Rarely current occupation: retired Sexually active: No Current gender identity: male What is your relationship status?: How often do you talk on the phone with friends or family?: once per week How often do you get together with friends or relatives?: three or more times per week Panel score (0-1 are the most socially isolated patients): 1 What type of physical activity do you participate in: none and sedentary lifestyle Special kinga needs: No Agree to transfusion: Yes Seatbelt use: always Working smoke detector in home: Yes Fire extinguisher in home: Yes Do you feel safe at home: Yes Do you feel safe in your relationship?: Yes Would you like helpful sources: Yes Additional Social history: Meds Home Medications and Allergies Home Medications Medication Instructions Recorded Confirmed Type zolpidem 12.5 mg PO HS PRN PRN 06/27/12 05/14/19 History carvedilol 25 mg PO BID #0 07/02/12 05/14/19 Rx aspirin [Aspir-Low] 81 mg PO DAILY tab-cap 09/18/12 05/14/19 History magnesium oxide 500 mg PO BID #1 09/18/12 05/14/19 History metformin 500 mg PO BID 06/28/13 05/14/19 History amiodarone 200 mg PO DAILY tab-cap 09/10/14 05/14/19 History rosuvastatin [Crestor] 20 mg PO DAILY 03/29/16 05/14/19 History albuterol sulfate [ProAir HFA] 1 puff IN Q4H PRN PRN 06/03/17 03/25/19 History gabapentin 600 mg PO BID 06/03/17 05/14/19 History riboflavin (vitamin B2) 100 mg 200 mg PO BID tab 12/04/17 05/14/19 History tablet cyanocobalamin (vitamin B-12) 1,000 mcg PO DAILY 02/16/18 05/14/19 History [Vitamin B-12] warfarin See Rx Instructions .ROUTE .COMPLEX 02/16/18 05/14/19 History ropinirole 2 mg tablet 2 mg PO QHS 03/24/18 05/14/19 History furosemide 40 mg tablet 40 mg PO BID tab 06/03/18 05/14/19 History fluticasone propionate [Flonase 1 spray INTRANASAL DAILY PRN 06/09/18 03/25/19 History Allergy Relief] folic acid 800 mcg/kg PO DAILY 06/09/18 05/14/19 History spironolactone 50 mg PO DAILY 11/28/18 05/14/19 History tamsulosin 0.4 mg capsule 0.4 mg PO DAILY 12/02/18 05/14/19 History loratadine 10 mg PO DAILY 02/18/19 05/14/19 History tramadol [Ultram] 50 mg PO BID PRN #8 tab 02/18/19 03/25/19 Rx cyclobenzaprine 10 mg tablet 10 mg PO TID 02/24/19 03/25/19 History lidocaine 5 % topical ointment 1 applic TP BID 02/24/19 03/25/19 History polyethylene glycol 3350 17 17 gm PO DAILY 02/24/19 03/25/19 History gram/dose oral powder Allergies Allergy/AdvReac Type Severity Reaction Status Date / Time dofetilide Allergy Unknown Unverified 05/14/19 18:15 Exam Narrative Exam Narrative: General: Patient appears to be in moderate distress from his right shoulder pain, alert and oriented x3. He is speaking clearly in conversation. Appears chronically ill with extensive tattoos over most of his body. He is moderately obese specially over his trunk. HEENT: Normocephalic with coarsened features of the face. Eyes with pupils equal and reactive to light symmetrically, extraocular movement intact and sclera anicteric. Oropharynx with poor dentition heavy discoloration and missing teeth, dry oral mucosa. Neck: Supple without JVD. Back: Stooped posture mild kyphosis, no CVA tenderness. Decreased range of motion with the patient uncomfortable guarding right shoulder. Lungs: Clear to auscultation and percussion. No adventitious sounds with clear vesicular breath sounds on his back. Heart: Chest reveals palpable subcutaneous pacemaker left upper chest and sternal scar over his mid chest. Irregular rhythm with distant heart sounds and holosystolic murmur over apex with mechanical valve click. No gallops appreciated. No rub appreciated. Abdomen: Obese contour, soft to palpation with no palpable hepatosplenomegaly or masses. Bowel sounds are all quadrants. Genitalia/rectal: Exam deferred. Extremities: Atrophic and hyperpigmented skin over legs chronic venous stasis changes, old avulsions and partly healed ulcerations over the right more than lower extremity with increased warmth to touch or erythema. Hard edema over ankles and feet bilaterally with decreased capillary refill. Peripheral pulses are decreased. There is no clubbing or cyanosis. Left foot is in Ortho shoe. Right shoulder is swollen without bruising and tender with any movement. Right biceps is nontender to palpation at the antecubital area and does not have abnormal contour. Skin: Diffuse tattoos with chronic changes over lower extremities as described. Normal turgor texture. Neuro: Cranial nerves II through XII grossly intact, no focalizing motor deficits though patient appears deconditioned and generally weak. Sensation lower extremities decreased to fine touch. Psych: Affect flattened good eye contact, slightly pressured speech. No abnormal thought processes. Remote and recent memory appear to be intact. Results Imaging Imaging Studies: Exam: XR Chest, 1 View Exam date and time: 05/14/2019 7:09 PM Age: 68 years old Clinical indication: Cough TECHNIQUE: Imaging protocol: XR of the chest Views: 1 view. COMPARISON: No relevant prior studies available. FINDINGS: Tubes, catheters and devices: An AICD generator is seen overlying the left axilla with leads in the right atrium and right ventricle. Lungs: There is no evidence of lung consolidation. There is mild cardiopulmonary congestion without pulmonary edema. Pleural space: There is no pleural effusion or pneumothorax. Heart/Mediastinum: There is moderate cardiomegaly. Bones/joints: There has been a median sternotomy. The spine demonstrates mild degenerative changes at multiple levels. IMPRESSION: Moderate cardiomegaly. Mild cardiopulmonary congestion without pulmonary edema. No evidence of pneumonia. Dictated and Authenticated by: Beni Juan MD Exam: XR Left Foot Complete Exam date and time: 05/14/2019 7:09 PM Age: 68 years old Clinical indication: Patient HX: Left foot pain x2 weeks. Fell TECHNIQUE: Imaging protocol: XR Left foot. Views: 3 or more views. COMPARISON: CR LEFT ANKLE COMPLETE 07/16/2017 11:48 AM FINDINGS: Bones/joints: There is an oblique fracture of the distal half of the 5th metatarsal bone with minimal separation of fragments. There is mild callus formation consistent with a subacute fracture. There is no dislocation. No blastic or bony destructive lesions identified. No line there is a 4 mm plantar calcaneal spur. There is an enthesophyte on the posterior aspect of the calcaneus bone at the insertion of the Achilles tendon without evidence of inflammation. Soft tissues: There are no radiopaque foreign bodies in the visualized soft tissues. IMPRESSION: Subacute oblique fracture through the distal half of the 5th metatarsal with minimal separation of fragments. Dictated and Authenticated by: Beni Juan MD. Exam: XR Right Shoulder Exam date and time: 05/14/2019 6:55 PM Age: 68 years old Clinical indication: Pain; Shoulder; Right TECHNIQUE: Imaging protocol: XR Right shoulder. Views: 2 or more views. COMPARISON: No relevant prior studies available. FINDINGS: Bones/joints: There is no acute fracture or dislocation. There is superior subluxation of the humeral head that lies in subacromial position. There are degenerative changes of the right acromioclavicular joint with a small inferior osteophyte. No blastic or bony destructive lesions identified. Median sternotomy wires are seen in expected position. Soft tissues: No radiopaque foreign bodies are seen in the visualized soft tissues. Other findings: There are mild diffuse osteopenic changes. IMPRESSION: 1. No acute fracture or dislocation. 2. Superior subluxation of the humeral head as may be seen in rotator cuff tear. 3. Degenerative changes of the right acromioclavicular joint. Dictated and Authenticated by: Beni Juan MD. Labs Result diagrams: 05/14/19 18:35 05/14/19 18:35 Labs: Laboratory Results - last 24 hr 05/14/19 05/14/19 05/14/19 18:32 18:35 18:35 WBC RBC Hgb Hct MCV MCH MCHC RDW Plt Count MPV Immature Gran % Neutrophils % Lymphocytes % Monocytes % Eosinophils % Basophils % Absolute Neutrophils Absolute Lymphocytes Absolute Monocytes Absolute Eosinophils Absolute Basophils ESR Cancelled PT INR D-Dimer Sodium 128 L Potassium 3.8 Chloride 92 L Carbon Dioxide 26.3 Anion Gap 9.7 BUN 35 H Creatinine 3.14 H Estimated GFR/1.73 m2 19.90 Glucose 194 H Lactate 2.8 H* Calcium 8.7 Total Bilirubin 1.0 AST 64 H ALT 48 Alkaline Phosphatase 285 H Lactate Dehydrogenase 266 H C-Reactive Protein Total Protein 7.5 Albumin 2.6 L 05/14/19 05/14/19 05/14/19 18:35 18:35 18:35 WBC 8.63 RBC 3.91 L Hgb 11.9 L Hct 36.1 L MCV 92.3 MCH 30.4 MCHC 33.0 RDW 17.0 H Plt Count 296 MPV 9.1 Immature Gran % 0.5 Neutrophils % 82.3 Lymphocytes % 5.9 Monocytes % 10.5 Eosinophils % 0.7 Basophils % 0.1 Absolute Neutrophils 7.10 H Absolute Lymphocytes 0.51 L Absolute Monocytes 0.91 H Absolute Eosinophils 0.06 Absolute Basophils 0.01 ESR PT 49.1 H INR 5.1 H* D-Dimer Sodium Potassium Chloride Carbon Dioxide Anion Gap BUN Creatinine Estimated GFR/1.73 m2 Glucose Lactate Calcium Total Bilirubin AST ALT Alkaline Phosphatase Lactate Dehydrogenase C-Reactive Protein > 25.00 H Total Protein Albumin 05/14/19 18:35 WBC RBC Hgb Hct MCV MCH MCHC RDW Plt Count MPV Immature Gran % Neutrophils % Lymphocytes % Monocytes % Eosinophils % Basophils % Absolute Neutrophils Absolute Lymphocytes Absolute Monocytes Absolute Eosinophils Absolute Basophils ESR PT INR D-Dimer 5247 H Sodium Potassium Chloride Carbon Dioxide Anion Gap BUN Creatinine Estimated GFR/1.73 m2 Glucose Lactate Calcium Total Bilirubin AST ALT Alkaline Phosphatase Lactate Dehydrogenase C-Reactive Protein Total Protein Albumin Last Vital Signs Temp 36.6 C 05/14/19 18:07 Pulse 74 05/14/19 19:15 Resp 15 05/14/19 19:30 BP 117/91 H 05/14/19 19:15 Pulse Ox 93 L 05/14/19 19:30 COVID-19 Screening Traveled to [place] from one of the affected countries or regions?: NO Recent travel in the [place] within the last 8 weeks?: No Recent out of the country travel within the last 8 weeks?: No Exposure or possible exposure to illness during travel?: No Had IN PERSON contact w/suspected or confirmed C-19 person: No Have you had the following symptoms in the past few days?: Yes Symptoms noted since travel?: Lower Respiratory
[2019-05-14] MEDS: Normal Saline 500 ML 1000 ML IV (20:38)
[2019-05-14 21:20] LABS: Bilirubin Negative (Negative); Blood Small (Negative); Clarity Clear (Clear); Glucose Negative (Negative); Ketones Negative (Negative); Leukocyte Esterase Negative (Negative); Nitrite Negative (Negative); Specific Gravity 1.015 (1.005-1.025); Urobilinogen 0.2 EU/dL (Up TO 0.2); pH 5.5 (5-8)
[2019-05-14 21:37] LABS: Bacteria Negative HPF (Negative); C & S Indicated? No; Crystals Negative HPF (Negative); Epithelial Cells Few HPF (Negative); Mucus Negative (Negative); RBC Negative HPF (0-2)
[2019-05-14 23:23] LABS: Troponin I < 0.05 ng/Ml (<0.06)
[2019-05-14 23:26] LABS: Magnesium 2.5 mg/dL (1.8-2.4); TSH (W/Ref FT4) 2.31 uIU/mL (0.36-3.74)
[2019-05-15] VITALS (10 sets, daily range): BP systolic 112–130; BP diastolic 70–86; PULSE 63–81; RESP 17–22; TEMP 36.4–37.7; O2SAT 90–95
[2019-05-15] MEDS: AZITHROMYCIN 500 MG in Normal Saline 250 ML 250 MG IVPB (00:58)
[2019-05-15] MEDS: rOPINIRole 1 MG TAB 2 MG PO ×2 (00:58→21:10)
[2019-05-15 02:01] LABS: Troponin I < 0.05 ng/Ml (<0.06)
[2019-05-15] MEDS: LORazepam 1 MG TAB PO (02:12)
[2019-05-15] MEDS: MORPHine 2 MG/ML SYR IVP (02:18)
[2019-05-15 06:14] LABS: HCT 33.3 % (40.0-50.0); HGB 11.2 g/dL (13.5-17.5); Mean Corp. HGB Concentration 33.6 g/dL (32.0-36.0); Mean Corpuscular Volume 92.2 fL (80-95); Platelet Count 378 x1000/uL (130-400); RBC 3.61 m/cumm (4.50-6.00); RBC Distribution Width 17.3 % (11.8-14.1); White Blood Cell Count 9.06 k/cumm (4.4-10.8)
[2019-05-15 06:19] LABS: Lactate 2.5 mmol/L (0.6-1.4)
[2019-05-15 06:27] LABS: Prothrombin Time 54.5 sec (9.3-11.0)
[2019-05-15 06:34] LABS: ALT 52 U/L (16-63); AST 76 U/L (15-37); Albumin 2.4 g/dL (3.4-5.0); Alkaline Phosphatase 272 U/L (46-116); Anion Gap 11.3 mmol/L (3-11); BUN 36 mg/dL (7-18); CO2 23.7 mmol/L (21.0-32.0); CREATININE 3.02 mg/dL (0.70-1.30); Calcium 8.2 mg/dL (8.5-10.1); Chloride 94 mmol/L (98-107); Estimated GFR 20.82 (mL/min/1.73m2); Glucose 206 mg/dL (74-106); Sodium 129 mmol/L (136-145); Total Protein 6.9 g/dL (6.4-8.2)
[2019-05-15 06:37] LABS: Troponin I < 0.05 ng/Ml (<0.06)
[2019-05-15 06:47] LABS: INR 5.7 (0.9-1.1)
--- NOTE | 2019-05-15 07:51 | W.ORTHOCONSU ---
History of Present Illness History of Present Illness Chief Complaint: Left foot and right shoulder pain Narrative: This note is to stand as a summary note of the chronic right shoulder issues that Sathya has had. He presented to the emergency department with dyspnea and shortness of breath. In the work-up he also expressed his continued pain about the right shoulder and the newer pain of his left foot. He has had multiple frequent falls. I have seen Sathya on a regular interval for his bilateral shoulders, right worse than left. The last office note was in March where he also mentioned he been having more frequent falls which was causing recurrent and worsening pain. He has had multiple injections in the past to his right shoulder. The majority of these have not been very helpful. He has rotator cuff tear arthropathy from x-rays in January. He is unable to undergo an MRI to determine the extent of muscular atrophy and tear. By report to ED and hospital staff, he continues have frequent falls and in 1 of these falls injured his left foot. X-rays in the emergency department do show a subacute fracture of the distal one third fifth metatarsal. He has been able to place weight on this foot although with pain. Assessment and Plan Assessment and plan (1) Fracture of fifth metatarsal bone of left foot: Status: Acute Assessment and plan: X-ray evaluation only demonstrates a subacute fracture, oblique in nature, the distal fifth metatarsal. This should heal without any significant complications. A hard soled shoe such as a postop shoe or a fracture walker boot can help assist with weightbearing. He may weight-bear as tolerated, using assistive devices as tolerated although difficult with his bilateral shoulder pathologies. Qualifiers: Encounter type: initial encounter Fracture type: closed Physeal involvement: not involving physis Qualified Code(s): S92.352A - Displaced fracture of fifth metatarsal bone, left foot, initial encounter for closed fracture (2) Swelling of joint of right shoulder: Status: Chronic Assessment and plan: This could represent a hemarthrosis. However, the treatment would still be the same. He has failed multiple injection in the past and has superior escape from rotator cuff tear arthropathy. (3) Right rotator cuff tear arthropathy: Status: Acute Assessment and plan: His right shoulder is a chronic issue from a chronic rotator cuff tear causing rotator cuff tear arthropathy with superior escape. The only real treatment would be a reverse total shoulder arthroplasty which he is not a candidate for. This has been discussed before with Sathya. He has had injection in the past with very little benefit. I am happy to consider repeat injection and aspiration if necessary. However, I do not think is going to provide any significant improvements although it may provide some short-term, a few days, if at all. I also worry about recurrent steroid injections making the situation worse but at the end of the day, the pathology is already clear and the only option is surgery or conservative treatments. Given his unknown Coban 19 status, I would prefer to reevaluate once his viral status is known. There is no acute injury. (4) Right rotator cuff tendonitis: Status: Chronic ON LICENSE OF [facility] Medical History Atrial fibrillation Benign hypertension Biceps tendon rupture, proximal (Acute) BPH (benign prostatic hyperplasia) Cellulitis and abscess of other specified site (Acute) Cervical radiculopathy chronic anticoagulation Chronic congestive heart failure (Chronic) non ischemic cardiomyopathy Chronic pain (Chronic) CKD (chronic kidney disease) (Chronic) Closed traumatic nondisplaced fracture of two ribs of left side with delayed healing (Acute) Depression Diabetes mellitus Diabetes mellitus associated with genetic syndrome Diverticulosis DNI (do not intubate) (Acute) DNR (do not resuscitate) (Acute) H/O mitral valve replacement Hyperlipidemia Hypertension Leg edema (Acute) Leg edema, left (Acute) Leg edema, right (Acute) Lumbar back pain Lymphedema of both lower extremities (Acute) Mitral valve disorder Neck pain Non-healing fracture (Acute) Obesity (Chronic) Obstructive sleep apnea Onychomycosis (Acute) Osteoarthritis Palliative care patient (Acute) Restless leg syndrome Venous stasis (Acute) Venous stasis dermatitis of both lower extremities (Acute) Venous stasis of both lower extremities (Acute) Venous stasis ulcer of ankle limited to breakdown of skin (Acute) Venous stasis ulcers of both lower extremities (Acute) Surgical History Fusion CMC joint (01/19/09) left thumb mitral valve replacement Pacemaker (05/22/16) (pacemaker end of battery life, change ICD to VVI) resection arthroplasty right thumb (01/17/09) Tonsillectomy and adenoidectomy Trigger Finger release (01/02/11) RIGHT MIDDLE, LEFT MIDDLE Trigger Finger release (04/29/12) RIGHT MIDDLE, LEFT MIDDLE Vasectomy Family History Mother , 49 yo Obesity Stroke Father , 55 yo Diabetes COPD (chronic obstructive pulmonary disease) Brother , 49 yo Heart disease Hypertension Brother Heart disease Myocardial infarct ICD (implantable cardioverter-defibrillator) battery depletion Son No problems noted. Son Asperger's disorder Anxiety ADHD Social History Smoking/Tobacco Use Status: Former Tobacco Use Alcohol Intake: current Alcohol Intake frequency: a few times a week Alcohol type: beer and hard liquor Details: drank to excess for about 2 years after his in Jan 2013 Drug use: Current Sobriety Substance use type: does not use Adopted: No Caregiver/Support person: Yes (lives with son w/ tyler) Details: second son comes to home to help occassionally. in charge of finances Household members: children Housing: house Number of Children: 2 number of grandchildren: 0 Communication Needs: Corrective Lenses Education Level: college Do you need help understanding health information?: Rarely current occupation: retired Sexually active: No Current gender identity: male What is your relationship status?: How often do you talk on the phone with friends or family?: once per week How often do you get together with friends or relatives?: three or more times per week Panel score (0-1 are the most socially isolated patients): 1 What type of physical activity do you participate in: none and sedentary lifestyle Special kinga needs: No Agree to transfusion: Yes Seatbelt use: always Working smoke detector in home: Yes Fire extinguisher in home: Yes Do you feel safe at home: Yes Do you feel safe in your relationship?: Yes Would you like helpful sources: Yes Additional Social history: Results Last Vital Signs Temp 37.7 C H 05/15/19 01:26 Pulse 63 05/15/19 01:26 Resp 22 05/15/19 01:26 BP 117/71 05/15/19 01:26 Pulse Ox 91 L 05/15/19 01:26 Labs Result diagrams: 05/15/19 05:30 05/15/19 05:30 Labs: Laboratory Results - last 24 hr 05/14/19 05/14/19 05/14/19 18:31 18:32 18:35 WBC RBC Hgb Hct MCV MCH MCHC RDW Plt Count MPV Immature Gran % Neutrophils % Lymphocytes % Monocytes % Eosinophils % Basophils % Absolute Neutrophils Absolute Lymphocytes Absolute Monocytes Absolute Eosinophils Absolute Basophils ESR Cancelled PT INR D-Dimer Sodium 128 L Potassium 3.8 Chloride 92 L Carbon Dioxide 26.3 Anion Gap 9.7 BUN 35 H Creatinine 3.14 H Estimated GFR/1.73 m2 19.90 Glucose 194 H Lactate Calcium 8.7 Magnesium Total Bilirubin 1.0 AST 64 H ALT 48 Alkaline Phosphatase 285 H Lactate Dehydrogenase 266 H Troponin I C-Reactive Protein Total Protein 7.5 Albumin 2.6 L TSH Urine Color Urine Clarity Urine pH Ur Specific [place] Urine Protein Urine Ketones Urine Blood Urine Nitrite Urine Bilirubin Urine Urobilinogen Ur Leukocyte Esterase Urine RBC Urine WBC Ur Epithelial Cells Urine Crystals Urine Bacteria Urine Casts Urine Mucus Ur Culture Indicated? Urine Glucose Coronavirus (PCR) Cancelled 05/14/19 05/14/19 05/14/19 18:35 18:35 18:35 WBC 8.63 RBC 3.91 L Hgb 11.9 L Hct 36.1 L MCV 92.3 MCH 30.4 MCHC 33.0 RDW 17.0 H Plt Count 296 MPV 9.1 Immature Gran % 0.5 Neutrophils % 82.3 Lymphocytes % 5.9 Monocytes % 10.5 Eosinophils % 0.7 Basophils % 0.1 Absolute Neutrophils 7.10 H Absolute Lymphocytes 0.51 L Absolute Monocytes 0.91 H Absolute Eosinophils 0.06 Absolute Basophils 0.01 ESR PT 49.1 H INR 5.1 H* D-Dimer Sodium Potassium Chloride Carbon Dioxide Anion Gap BUN Creatinine Estimated GFR/1.73 m2 Glucose Lactate 2.8 H* Calcium Magnesium Total Bilirubin AST ALT Alkaline Phosphatase Lactate Dehydrogenase Troponin I C-Reactive Protein Total Protein Albumin TSH Urine Color Urine Clarity Urine pH Ur Specific [place] Urine Protein Urine Ketones Urine Blood Urine Nitrite Urine Bilirubin Urine Urobilinogen Ur Leukocyte Esterase Urine RBC Urine WBC Ur Epithelial Cells Urine Crystals Urine Bacteria Urine Casts Urine Mucus Ur Culture Indicated? Urine Glucose Coronavirus (PCR) 05/14/19 05/14/19 05/14/19 18:35 18:35 21:00 WBC RBC Hgb Hct MCV MCH MCHC RDW Plt Count MPV Immature Gran % Neutrophils % Lymphocytes % Monocytes % Eosinophils % Basophils % Absolute Neutrophils Absolute Lymphocytes Absolute Monocytes Absolute Eosinophils Absolute Basophils ESR PT INR D-Dimer 5247 H Sodium Potassium Chloride Carbon Dioxide Anion Gap BUN Creatinine Estimated GFR/1.73 m2 Glucose Lactate Calcium Magnesium Total Bilirubin AST ALT Alkaline Phosphatase Lactate Dehydrogenase Troponin I C-Reactive Protein > 25.00 H Total Protein Albumin TSH Urine Color Yellow Urine Clarity Clear Urine pH 5.5 Ur Specific [place] 1.015 Urine Protein 30 H Urine Ketones Negative Urine Blood Small H Urine Nitrite Negative Urine Bilirubin Negative Urine Urobilinogen 0.2 Ur Leukocyte Esterase Negative Urine RBC Negative Urine WBC 3-5 Ur Epithelial Cells Few Urine Crystals Negative Urine Bacteria Negative Urine Casts 20-50 fine granular Urine Mucus Negative Ur Culture Indicated? No Urine Glucose Negative Coronavirus (PCR) 05/14/19 05/14/19 05/14/19 22:50 22:50 23:40 WBC RBC Hgb Hct MCV MCH MCHC RDW Plt Count MPV Immature Gran % Neutrophils % Lymphocytes % Monocytes % Eosinophils % Basophils % Absolute Neutrophils Absolute Lymphocytes Absolute Monocytes Absolute Eosinophils Absolute Basophils ESR PT INR D-Dimer Sodium Potassium Chloride Carbon Dioxide Anion Gap BUN Creatinine Estimated GFR/1.73 m2 Glucose Lactate Calcium Magnesium 2.5 H Total Bilirubin AST ALT Alkaline Phosphatase Lactate Dehydrogenase Troponin I < 0.05 Cancelled C-Reactive Protein Total Protein Albumin TSH 2.31 Urine Color Urine Clarity Urine pH Ur Specific [place] Urine Protein Urine Ketones Urine Blood Urine Nitrite Urine Bilirubin Urine Urobilinogen Ur Leukocyte Esterase Urine RBC Urine WBC Ur Epithelial Cells Urine Crystals Urine Bacteria Urine Casts Urine Mucus Ur Culture Indicated? Urine Glucose Coronavirus (PCR) 05/15/19 05/15/19 05/15/19 01:30 05:30 05:30 WBC RBC Hgb Hct MCV MCH MCHC RDW Plt Count MPV Immature Gran % Neutrophils % Lymphocytes % Monocytes % Eosinophils % Basophils % Absolute Neutrophils Absolute Lymphocytes Absolute Monocytes Absolute Eosinophils Absolute Basophils ESR PT INR D-Dimer Sodium 129 L Potassium 4.0 Chloride 94 L Carbon Dioxide 23.7 Anion Gap 11.3 H BUN 36 H Creatinine 3.02 H Estimated GFR/1.73 m2 20.82 Glucose 206 H Lactate 2.5 H* Calcium 8.2 L Magnesium Total Bilirubin 1.0 AST 76 H ALT 52 Alkaline Phosphatase 272 H Lactate Dehydrogenase Troponin I < 0.05 C-Reactive Protein Total Protein 6.9 Albumin 2.4 L TSH Urine Color Urine Clarity Urine pH Ur Specific [place] Urine Protein Urine Ketones Urine Blood Urine Nitrite Urine Bilirubin Urine Urobilinogen Ur Leukocyte Esterase Urine RBC Urine WBC Ur Epithelial Cells Urine Crystals Urine Bacteria Urine Casts Urine Mucus Ur Culture Indicated? Urine Glucose Coronavirus (PCR) 05/15/19 05/15/19 05/15/19 05:30 05:30 05:30 WBC 9.06 RBC 3.61 L Hgb 11.2 L Hct 33.3 L MCV 92.2 MCH 31.0 MCHC 33.6 RDW 17.3 H Plt Count 378 MPV 9.0 Immature Gran % Neutrophils % Lymphocytes % Monocytes % Eosinophils % Basophils % Absolute Neutrophils Absolute Lymphocytes Absolute Monocytes Absolute Eosinophils Absolute Basophils ESR PT 54.5 H INR 5.7 H* D D-Dimer Sodium Potassium Chloride Carbon Dioxide Anion Gap BUN Creatinine Estimated GFR/1.73 m2 Glucose Lactate Calcium Magnesium Total Bilirubin AST ALT Alkaline Phosphatase Lactate Dehydrogenase Troponin I < 0.05 C-Reactive Protein Total Protein Albumin TSH Urine Color Urine Clarity Urine pH Ur Specific [place] Urine Protein Urine Ketones Urine Blood Urine Nitrite Urine Bilirubin Urine Urobilinogen Ur Leukocyte Esterase Urine RBC Urine WBC Ur Epithelial Cells Urine Crystals Urine Bacteria Urine Casts Urine Mucus Ur Culture Indicated? Urine Glucose Coronavirus (PCR) Imaging Imaging Studies: X-ray of the right shoulder shows a superiorly migrated humeral head. There are chronic changes seen on the superolateral humeral head as well as the undersurface of the acromion. The glenohumeral joint is otherwise located. No fracture. X-ray of the left foot demonstrates an oblique fracture of the distal fifth metatarsal. There appears to be some early healing.
[2019-05-15] MEDS: Aspirin E.C. 81 MG TABEC PO (09:28)
[2019-05-15] MEDS: Tamsulosin 0.4 MG CAPCR PO (09:29)
[2019-05-15] MEDS: Folic Acid 1 MG TAB PO (09:29)
[2019-05-15] MEDS: Carvedilol 25 MG TAB PO ×2 (09:29→16:51)
[2019-05-15] MEDS: Amiodarone 200 MG TAB PO (09:29)
[2019-05-15] MEDS: Loratidine 10 MG TAB PO (09:29)
[2019-05-15] MEDS: Gabapentin 600 MG TAB PO ×2 (09:29→20:50)
[2019-05-15] MEDS: Insulin Aspart 300 UNITS/3 ML PEN SC ×3 (09:32→16:51)
--- NOTE | 2019-05-15 10:06 | PDOC.CMIN ---
- If Service Date Differs Date of service: 05/15/19 Time of Service: 16:54 Care Management Initial Assess REASON FOR HOSPITALIZATION:: Cough with Dyspnea, Lactic acidosis, hypoprothrotic PAST MEDICAL HISTORY/PAST SURGICAL HISTORY:: 68-year-old gentleman who came to the ED mostly for his dyspnea and worsening cough. He was screened for COVID-19 and placed in the respiratory medical unit. Atrial fibrillation. Benign hypertension. Biceps tendon rupture, proximal (Acute). BPH (benign prostatic hyperplasia). Cellulitis and abscess of other specified site (Acute). Cervical radiculopathy. chronic anticoagulation. Chronic congestive heart failure (Chronic). non ischemic cardiomyopathy. Chronic pain (Chronic). CKD (chronic kidney disease) (Chronic). Closed traumatic nondisplaced fracture of two ribs of left side with delayed healing (Acute). Depression. Diabetes mellitus. Diabetes mellitus associated with genetic syndrome. Diverticulosis. DNI (do not intubate) (Acute). DNR (do not resuscitate) (Acute). H/O mitral valve replacement. Hyperlipidemia. Hypertension. Leg edema (Acute). Leg edema, left (Acute). Leg edema, right (Acute). Lumbar back pain. Lymphedema of both lower extremities (Acute). Mitral valve disorder. Neck pain. Non-healing fracture (Acute). Obesity (Chronic). Obstructive sleep apnea. Onychomycosis (Acute). Osteoarthritis. Palliative care patient (Acute). Restless leg syndrome. Venous stasis (Acute). Venous stasis dermatitis of both lower extremities (Acute). Venous stasis of both lower extremities (Acute). Venous stasis ulcer of ankle limited to breakdown of skin (Acute). Venous stasis ulcers of both lower extremities (Acute). Surgical History . Fusion CMC joint (01/19/09). left thumb. mitral valve replacement. Pacemaker (05/22/16). (pacemaker end of battery life, change ICD to VVI). resection arthroplasty right thumb (01/17/09). Tonsillectomy and adenoidectomy. Trigger Finger release (01/02/11). RIGHT MIDDLE, LEFT MIDDLE. Trigger Finger release (04/29/12). RIGHT MIDDLE, LEFT MIDDLE. Vasectomy PREVIOUS FUNCTIONAL STATUS/SOCIAL/FAMILY SUPPORTS:: Sathya is currently placed in the RCU awaiting COVID R/O. The following were gathered per chart review: pt has frequent falls @ home since November. SON WITH AUTISM HELPS HIM TO SHOWER/TRIPS TO TOILET. HAD HOME HEALTH UP UNTIL A COUPLE WEEKS AGO WHEN IT TIMED OUT AND NOW iM JADON. USES URINAL AT HOME LAST DAY OR SO PRIOR TO BATHROOM WITH SON ASSISTANCE CURRENT FUNCTIONAL STATUS:: Sathya is currently placed in the RCU awaiting COVID R/O, CM continues to follow. Per MD documentation 03/06/19: -pt cannot drive and cannot walk due to CHF/COPD/neuropathy from DM/CVA/memory problems. -pt is a pallative care pt. he has mult ulcers on the b/l LE and needs weekly [facility] boot therapy- RN for weekly changes and to help with meds. -personal lines account manager for twice/weekly bath and shave ADVANCE DIRECTIVES:: Sons: Bo Arnold as agent, Rick Simental as alternate. Has patient been provided with information about the portal?: No Did the patient sign up for the portal?: No CODE STATUS:: DNR/DNI INSURANCE COVERAGE / FINANCIAL ISSUES:: [facility] [employer]. BC/BS ZIB Plan F CURRENT HOME/COMMUNITY SERVICES/EQUIPMENT:: Bedside commode, grab bars, tub seat/bench, handrails, motorized w/c, WW, glucometer, urinal PRIMARY CARE PHYSICIAN:: Joanne Brewster POTENTIAL DISCHARGE NEEDS:: Palliative Care: Hospice when appropriate does not want SNF. PATIENT/FAMILY EDUCATION NEEDS:: Review discharge instructions, discuss Ask Me Three. ANTICIPATED BARRIERS TO DISCHARGE:: None identified at this time. TRANSPORTATION:: TBD by disposition. PLAN:: Sathya remains in RCU at this time. CM continues to follow. If he returns home, anticipate referrals for increased service supports at home including social work and case management to attend to his obvious high care needs in home setting. TBD by medical status. Anticipate Palliative Consult when appropriate.
--- NOTE | 2019-05-15 10:54 | PHA.ADMREV ---
Pharmacy Clinical Review - Admission Clinical Review (Last Reviewed 05/15/19 @ 01:56 by Oneil Hook) Right rotator cuff tear arthropathy (Acute) Hypoprothrombinemia (Acute) Dyspnea (Acute) Fracture of fifth metatarsal bone of left foot (Acute) Cough (Acute) Supratherapeutic INR (Acute) dofetilide Allergy (Unknown, Unverified 05/14/19 18:15) Height 5 ft 10 in Weight 107.955 kg - Renal Dosing Renal Dosing: BUN 36 mg/dL (7-18) H 05/15/19 05:30 Creatinine 3.02 mg/dL (0.70-1.30) H 05/15/19 05:30 Medications needing adjustments: Reviewed (CrCl~ 24 mL/min Meds-KS) - Anticoagulation Anticoagulation: Hgb 11.2 g/dL (13.5-17.5) L 05/15/19 05:30 Hct 33.3 % (40.0-50.0) L 05/15/19 05:30 Plt Count 378 x1000/uL (130-400) 05/15/19 05:30 INR 5.7 (0.9-1.1) H* D 05/15/19 05:30 Creatinine 3.02 mg/dL (0.70-1.30) H 05/15/19 05:30 DVT Prohphylaxis: N/A Therapeutic Anticoagulation: Reviewed (On Warfarin, INR-5.7 (HELD) will start when decrease to therapeutic range) Medications: Warfarin - Opiate Usage Evaluate Pain Scale/Pains Meds: N/A Scheduled Bowel Reg ordered if on Opiates?: Yes - Relevant Labs ESR Cancelled 05/14/19 18:32 Sodium 129 mmol/L (136-145) L 05/15/19 05:30 Potassium 4.0 mmol/L (3.5-5.1) 05/15/19 05:30 Chloride 94 mmol/L (98-107) L 05/15/19 05:30 Magnesium 2.5 mg/dL (1.8-2.4) H 05/14/19 22:50 C-Reactive Protein > 25.00 mg/dL (0.0-0.3) H 05/14/19 18:35 Electrolytes, C-Reactive P, ESR: Reviewed (c-reactive >25 Sodium 129) - Antimicrobial Stewardship Antibiotic appropriateness: Reviewed (Azithromycin 500mg IV , TO 250mg NOW Blood, Urine.COVID pending) Surgical Abx d/c within 24 hr: N/A Culture review/Resistance: Reviewed (Blood & Urine pending .. awaiting COVID-19 RESULT) - DM Control DM Control: Glucose 206 mg/dL (74-106) H 05/15/19 05:30 Finger Stick Blood Glucose 186 Insulin Dosing: Reviewed (On Aspart while here) - Heart Failure/NC Heart Failure/NC: Troponin I < 0.05 ng/Ml (<0.06) 05/15/19 05:30 EF%, KOFFI's, B-Blockers, Diuretics: Reviewed (POOR HEART FUNCTION: EF<20% on AMIODARONE & COREG) - BP Control BP Control: Blood Pressure [Right Arm] 114/73 Blood Pressure [Right Arm] 117/71 Blood Pressure 117/79 If elevated: Reviewed (On COREG) - QTc Review If Elevated: Reviewed (QTc-501 KR- Amiodarone, Azithromycin) - IV to PO Switch IV Medications: Reviewed (AZITHROMYCIN MAY SWITCH TO PO) - Home Meds Home Med List reviewed: Reviewed (Warfarin-HELD NOT ORDERED Flexeril, Flonase, VIT-B12, Lasix, Lidoderm, MagOx, Metformin, Spironolactone, Tramadol VIT=B2) - Current meds Current Medication Order Review: Reviewed (AWAITING COVID RESULTS.)
[2019-05-15] MEDS: Normal Saline Flush 10 ML SYR IVP (12:32)
[2019-05-15] MEDS: Acetaminophen 325 MG TAB PO (12:33)
--- NOTE | 2019-05-15 13:01 | W.NUTCONSULT ---
Date of service: 05/15/19 Time of Service: 13:01 Nutritional Consult ASSESSMENT: 68 year old obese male admitted to RICU for dyspnea, r/o Covid 19. PMH: class 2 obeisty, CKD, heart failure and Diabetes. Labs indicate elevated glucose and A1C (7.4% 12/31/18). Diabetes consult received, will provide education once out of RICU or in outpatient setting. Following CHO diet with 100% meal completion. Not at risk for nutritional decline at this time. NUTRITIONAL DIAGNOSIS: Insulin dependent diabetes obesity INTERVENTION: Diabetic Diet Diabetic consult for education MONITORING AND EVALUATION: po intake, labs, weight Time Spent in Nutritional Counseling and Treatment: 0 time spent face to face
[2019-05-15] MEDS: Polyethylene Glycol 3350 17 GM PACKET PO (14:45)
--- NOTE | 2019-05-15 14:56 | PGE_ITS ---
Date of Service Date of service: 05/15/19 Time of Service: 14:56 Assessment and Plan Assessment and plan (1) Cough: Status: Acute Assessment and plan: Differential includes CHF versus viral pneumonitis versus community-acquired bronchitis. Of note his chest x-ray showed no evidence of pneumonia and no acute abnormality. However it reportedly showed mild underlying fibrotic changes. At this point his SARS-CoV-2 PCR test is pending. Patient's been started on Zithromax for presumed acute purulent bronchitis. Therapy will be modified once we get the results of his PCR test (2) Dyspnea: Status: Acute Assessment and plan: At rest the patient does not seem to be dyspneic. In spite of his severe cardiomyopathy I think he is on the dry side and we will give him gentle IV fluid hydration overnight at a slow rate with a repeat his labs in the morning. Patient's PCP Dr. Kern call me this morning to indicate that she plan on working him up for his dyspnea to rule out pulmonary fibrosis from his amiodarone. She want to set him up for high-resolution CT scan as an outpatient. She requested that if possible for us to do this before he leaves the hospital. I told her it would depend upon his results of his PCR for SARS-CoV-2. Qualifiers: Dyspnea type: shortness of breath Qualified Code(s): R06.02 - Shortness of breath (3) Right rotator cuff tear arthropathy: Status: Acute Assessment and plan: I spoke with Dr. Dennison regarding Mr. arias chronic shoulder pain. In light of his falls he probably has a hemarthrosis since he was over anticoagulated. Dr. Dennison feels that an injection at this point would not likely benefit him but if we cannot control the pain and the swelling he would be willing to aspirate the joint. He has reservations about giving him recurrent steroid injections since the patient has not responded with any prolonged relief of his pain from prior outpatient corticosteroid injections. For now, put the patient in a sling to support his arm. I will treat him with oral analgesics and if that does not control his pain we will give him IV analgesics. (4) Fracture of fifth metatarsal bone of left foot: Status: Acute Assessment and plan: Nonoperative fracture. At this point we will put him in a postop shoe. Qualifiers: Encounter type: initial encounter Fracture type: closed Physeal involvement: not involving physis Qualified Code(s): S92.352A - Displaced fracture of fifth metatarsal bone, left foot, initial encounter for closed fracture (5) Hemarthrosis, shoulder: Status: Acute Assessment and plan: We will try cold compresses to the shoulder to reduce the swelling. Analgesics as listed above. Qualifiers: Laterality: right Qualified Code(s): M25.011 - Hemarthrosis, right anisha ulder (6) Supratherapeutic INR: Status: Acute Assessment and plan: Hold his warfarin for now until his INR drops below 4 (7) Atrial fibrillation: Status: Chronic Assessment and plan: Rate is currently well controlled and at times he appears to be in a paced rhythm. Patient has a history of VT/VF however per his choice his AICD has been turned off. Is unclear to me as to why he remains on am iodarone if his rhythm is in atrial fibrillation (8) Acute on chronic kidney failure: Status: Acute Assessment and plan: Creatinine is elevated to 3.0 and was up to 3.1 last night. His baseline creatinine seems to be between 2.2 and 2.5 so I do not think that his renal function is all that far off from baseline. We will give him gentle fluid hydration of 500 cc slowly and recheck his labs in the morning. Qualifiers: Acute renal failure type: unspecified Chronic kidney disease stage: stage 4 (severe) Qualified Code(s): N17.9 - Acute kidney failure, unspecified; N18.4 - Chronic kidney disease, stage 4 (severe) (9) Diabetic peripheral neuropathy: Status: Acute Assessment and plan: Discontinue his metformin that he been taken at home. He is not a candidate for metformin secondary to his chronic kidney disease and underlying cardiomyopathy. Patient will be treated with NovoLog sliding scale and we will add basal insulin at night. Subjective Subjective Interval history since last seen: 68-year-old male with history of nonischemic cardiomyopathy with an EF less than 20% status post AICD and pacemaker placement (AICD has been shut off per patient's request), status post [place] mechanical mitral valve replacement on chronic warfarin therapy, chronic right rotator cuff tear that is inoperable. He presented with progressive dyspnea over the last several days. Patient's had increasing weakness and been falling down at home. He fell several days ago injuring his left foot and right shoulder. He has a chronic right shoulder rotator cuff injury. Since his falls he has had increased swelling over the right shoulder. Evaluation the emergency department included a CBC that showed a normal white count of 9000 and a stable chronic anemia with a hemoglobin 11.2 g. His CMP demonstrated hyponatremia with a serum sodium of 129 and an acute kidney injury with a BUN of 36 and creatinine 3.02 and an elevated blood lactate level 2.5. He also has mild elevation of his liver enzymes including an AST of 76 alkaline phosphatase of 272. Troponin levels were negative x2 sets at less than 0.05. Radiologic studies include x-ray of his left foot that showed a subacute fracture of the fifth metatarsal right shoulder x-ray that shows degenerative changes but no fracture. Humeral head is superiorly positioned consistent with a chronic rotator cuff tear and there is spurring of the glenoid and inferior aspect of the acromion and greater tuberosity. Chest x-ray showed cardiomegaly but no acute abnormality and no evidence of pneumonia. EKG demonstrates atrial fibrillation with bundle branch block and intermittent electronically paced rhythm. Treatment on admission included an albuterol updraft treatment as well as 500 cc bolus of normal saline and initiation of azithromycin. Pending test includes viral PCR study for SARS-CoV-2 Exam Narrative Exam Narrative: Morbidly obese male with multiple tattoos sitting on the bedside commode. Lungs w/ diffuse expiratory wheezes Heart is irregularly irregular Abdomen: obese, soft, nontender Legs w/ 2+edema R. shoulder is swollen and tender; pain w/ ROM on abduction Objective Objective Clinical Data: Abnormal lab results 05/14/19 05/14/19 05/14/19 Range/Units 18:35 18:35 18:35 RBC 3.91 L (4.50-6.00) m/cumm Hgb 11.9 L (13.5-17.5) g/dL Hct 36.1 L (40.0-50.0) % RDW 17.0 H (11.8-14.1) % Absolute Neutrophils 7.10 H (1.2-6.7) k/cumm Absolute Lymphocytes 0.51 L (1.2-3.4) k/cumm Absolute Monocytes 0.91 H (0.11-0.7) k/cumm PT (9.3-11.0) sec INR (0.9-1.1) D-Dimer (<500) ng/mlFEU Sodium 128 L (136-145) mmol/L Chloride 92 L (98-107) mmol/L Anion Gap (3-11) mmol/L BUN 35 H (7-18) mg/dL Creatinine 3.14 H (0.70-1.30) mg/dL Glucose 194 H (74-106) mg/dL Lactate 2.8 H* (0.6-1.4) mmol/L Calcium (8.5-10.1) mg/dL Magnesium (1.8-2.4) mg/dL AST 64 H (15-37) U/L Alkaline Phosphatase 285 H (46-116) U/L Lactate Dehydrogenase 266 H (85-227) U/L C-Reactive Protein (0.0-0.3) mg/dL Albumin 2.6 L (3.4-5.0) g/dL Urine Protein (Negative) mg/dL Urine Blood (Negative) 05/14/19 05/14/19 05/14/19 Range/Units 18:35 18:35 18:35 RBC (4.50-6.00) m/cumm Hgb (13.5-17.5) g/dL Hct (40.0-50.0) % RDW (11.8-14.1) % Absolute Neutrophils (1.2-6.7) k/cumm Absolute Lymphocytes (1.2-3.4) k/cumm Absolute Monocytes (0.11-0.7) k/cumm PT 49.1 H (9.3-11.0) sec INR 5.1 H* (0.9-1.1) D-Dimer 5247 H (<500) ng/mlFEU Sodium (136-145) mmol/L Chloride (98-107) mmol/L Anion Gap (3-11) mmol/L BUN (7-18) mg/dL Creatinine (0.70-1.30) mg/dL Glucose (74-106) mg/dL Lactate (0.6-1.4) mmol/L Calcium (8.5-10.1) mg/dL Magnesium (1.8-2.4) mg/dL AST (15-37) U/L Alkaline Phosphatase (46-116) U/L Lactate Dehydrogenase (85-227) U/L C-Reactive Protein > 25.00 H (0.0-0.3) mg/dL Albumin (3.4-5.0) g/dL Urine Protein (Negative) mg/dL Urine Blood (Negative) 05/14/19 05/14/19 05/15/19 Range/Units 21:00 22:50 05:30 RBC (4.50-6.00) m/cumm Hgb (13.5-17.5) g/dL Hct (40.0-50.0) % RDW (11.8-14.1) % Absolute Neutrophils (1.2-6.7) k/cumm Absolute Lymphocytes (1.2-3.4) k/cumm Absolute Monocytes (0.11-0.7) k/cumm PT (9.3-11.0) sec INR (0.9-1.1) D-Dimer (<500) ng/mlFEU Sodium (136-145) mmol/L Chloride (98-107) mmol/L Anion Gap (3-11) mmol/L BUN (7-18) mg/dL Creatinine (0.70-1.30) mg/dL Glucose (74-106) mg/dL Lactate 2.5 H* (0.6-1.4) mmol/L Calcium (8.5-10.1) mg/dL Magnesium 2.5 H (1.8-2.4) mg/dL AST (15-37) U/L Alkaline Phosphatase (46-116) U/L Lactate Dehydrogenase (85-227) U/L C-Reactive Protein (0.0-0.3) mg/dL Albumin (3.4-5.0) g/dL Urine Protein 30 H (Negative) mg/dL Urine Blood Small H (Negative) 05/15/19 05/15/19 05/15/19 Range/Units 05:30 05:30 05:30 RBC 3.61 L (4.50-6.00) m/cumm Hgb 11.2 L (13.5-17.5) g/dL Hct 33.3 L (40.0-50.0) % RDW 17.3 H (11.8-14.1) % Absolute Neutrophils (1.2-6.7) k/cumm Absolute Lymphocytes (1.2-3.4) k/cumm Absolute Monocytes (0.11-0.7) k/cumm PT 54.5 H (9.3-11.0) sec INR 5.7 H* D (0.9-1.1) D-Dimer (<500) ng/mlFEU Sodium 129 L (136-145) mmol/L Chloride 94 L (98-107) mmol/L Anion Gap 11.3 H (3-11) mmol/L BUN 36 H (7-18) mg/dL Creatinine 3.02 H (0.70-1.30) mg/dL Glucose 206 H (74-106) mg/dL Lactate (0.6-1.4) mmol/L Calcium 8.2 L (8.5-10.1) mg/dL Magnesium (1.8-2.4) mg/dL AST 76 H (15-37) U/L Alkaline Phosphatase 272 H (46-116) U/L Lactate Dehydrogenase (85-227) U/L C-Reactive Protein (0.0-0.3) mg/dL Albumin 2.4 L (3.4-5.0) g/dL Urine Protein (Negative) mg/dL Urine Blood (Negative) Vital Signs Temperature 36.4 C L 05/15/19 12:21 Temperature Source Tympanic 05/15/19 12:21 Pulse 64 05/15/19 12:21 Pulse 66 05/14/19 21:45 Respiratory Rate 20 05/15/19 12:21 Respiratory Effort 05/15/19 09:02 Respiratory Depth Normal 05/15/19 09:02 Respiratory Pattern Normal 05/15/19 09:02 Blood Pressure 118/76 05/15/19 12:21 Blood Pressure Mean 86 05/15/19 09:02 Blood Pressure Position Supine 05/15/19 09:02 Pulse Oximetry 95 05/15/19 12:21 Oxygen Delivery Method Room Air 05/15/19 12:21 Oxygen Flow Rate 0 05/15/19 12:21 Pain Level 8 05/15/19 13:34 Intake & Output 05/14/19 05/15/19 05/15/19 23:59 11:59 23:59 Intake Total 300 / 300 Output Total 500 / 500 480 / 480 Balance -500 / -500 -180 / -180 Weight 107.955 kg Intake: Oral 300 / 300 Output: Urine 500 / 500 480 / 480 Other: Urine Color Yellow Dark Maribel Urine Appearance Clear Clear Comment Voids in urinal. Voiding Methods Urinal Laboratory Results WBC 9.06 k/cumm (4.4-10.8) 05/15/19 05:30 RBC 3.61 m/cumm (4.50-6.00) L 05/15/19 05:30 Hgb 11.2 g/dL (13.5-17.5) L 05/15/19 05:30 Hct 33.3 % (40.0-50.0) L 05/15/19 05:30 MCV 92.2 fL (80-95) 05/15/19 05:30 MCH 31.0 pg (27.0-33.0) 05/15/19 05:30 MCHC 33.6 g/dL (32.0-36.0) 05/15/19 05:30 RDW 17.3 % (11.8-14.1) H 05/15/19 05:30 Plt Count 378 x1000/uL (130-400) 05/15/19 05:30 MPV 9.0 fL (8.0-11.0) 05/15/19 05:30 Immature Gran % 0.5 % 05/14/19 18:35 Neutrophils % 82.3 05/14/19 18:35 Lymphocytes % 5.9 05/14/19 18:35 Monocytes % 10.5 05/14/19 18:35 Eosinophils % 0.7 05/14/19 18:35 Basophils % 0.1 05/14/19 18:35 Absolute Neutrophils 7.10 k/cumm (1.2-6.7) H 05/14/19 18:35 Absolute Lymphocytes 0.51 k/cumm (1.2-3.4) L 05/14/19 18:35 Absolute Monocytes 0.91 k/cumm (0.11-0.7) H 05/14/19 18:35 Absolute Eosinophils 0.06 k/cumm (0.0-0.7) 05/14/19 18:35 Absolute Basophils 0.01 k/cumm (0.0-0.2) 05/14/19 18:35 ESR Cancelled 05/14/19 18:32 PT 54.5 sec (9.3-11.0) H 05/15/19 05:30 INR 5.7 (0.9-1.1) H* D 05/15/19 05:30 D-Dimer 5247 ng/mlFEU (<500) H 05/14/19 18:35 Sodium 129 mmol/L (136-145) L 05/15/19 05:30 Potassium 4.0 mmol/L (3.5-5.1) 05/15/19 05:30 Chloride 94 mmol/L (98-107) L 05/15/19 05:30 Carbon Dioxide 23.7 mmol/L (21.0-32.0) 05/15/19 05:30 Anion Gap 11.3 mmol/L (3-11) H 05/15/19 05:30 BUN 36 mg/dL (7-18) H 05/15/19 05:30 Creatinine 3.02 mg/dL (0.70-1.30) H 05/15/19 05:30 Estimated GFR/1.73 m2 20.82 (mL/min/1.73m2) 05/15/19 05:30 Glucose 206 mg/dL (74-106) H 05/15/19 05:30 Lactate 2.5 mmol/L (0.6-1.4) H* 05/15/19 05:30 Calcium 8.2 mg/dL (8.5-10.1) L 05/15/19 05:30 Magnesium 2.5 mg/dL (1.8-2.4) H 05/14/19 22:50 Total Bilirubin 1.0 mg/dL (0.2-1.0) 05/15/19 05:30 AST 76 U/L (15-37) H 05/15/19 05:30 ALT 52 U/L (16-63) 05/15/19 05:30 Alkaline Phosphatase 272 U/L (46-116) H 05/15/19 05:30 Lactate Dehydrogenase 266 U/L (85-227) H 05/14/19 18:35 Troponin I < 0.05 ng/Ml (<0.06) 05/15/19 05:30 C-Reactive Protein > 25.00 mg/dL (0.0-0.3) H 05/14/19 18:35 Total Protein 6.9 g/dL (6.4-8.2) 05/15/19 05:30 Albumin 2.4 g/dL (3.4-5.0) L 05/15/19 05:30 TSH 2.31 uIU/mL (0.36-3.74) 05/14/19 22:50 Urine Color Yellow (Yellow) 05/14/19 21:00 Urine Clarity Clear (Clear) 05/14/19 21:00 Urine pH 5.5 (5-8) 05/14/19 21:00 Ur Specific [place] 1.015 (1.005-1.025) 05/14/19 21:00 Urine Protein 30 mg/dL (Negative) H 05/14/19 21:00 Urine Ketones Negative mg/dL (Negative) 05/14/19 21:00 Urine Blood Small (Negative) H 05/14/19 21:00 Urine Nitrite Negative (Negative) 05/14/19 21:00 Urine Bilirubin Negative (Negative) 05/14/19 21:00 Urine Urobilinogen 0.2 EU/dL (Up TO 0.2) 05/14/19 21:00 Ur Leukocyte Esterase Negative (Negative) 05/14/19 21:00 Urine RBC Negative HPF (0-2) 05/14/19 21:00 Urine WBC 3-5 HPF (0-5) 05/14/19 21:00 Ur Epithelial Cells Few HPF (Negative) 05/14/19 21:00 Urine Crystals Negative HPF (Negative) 05/14/19 21:00 Urine Bacteria Negative HPF (Negative) 05/14/19 21:00 Urine Casts 20-50 fine granular LPF (Negative) 05/14/19 21:00 Urine Mucus Negative (Negative) 05/14/19 21:00 Ur Culture Indicated? No 05/14/19 21:00 Urine Glucose Negative mg/dL (Negative) 05/14/19 21:00 Coronavirus (PCR) Cancelled 05/14/19 18:31 Reviewed Pertinent PMH: Yes Objective Narrative Objective Narrative: Bedside [id number] ultrasound of his lungs was performed. Upper lung zones demonstrate a line pattern. Base of his lungs show bilateral B-lines consistent with an interstitial lung process. No pleural effusion is seen. B-lines seem to be predominantly at the bases and posteriorly.
[2019-05-15] MEDS: traMADol 50 MG TAB PO (16:51)
[2019-05-15] MEDS: Normal Saline 500 ML 65 ML IV (16:52)
[2019-05-15] MEDS: Mylanta Suspension 30 ML CUP PO (18:35)
--- NOTE | 2019-05-15 19:39 | DI.RAD_ITS ---
EXAM: XR PORTABLE CHEST AP CLINICAL HISTORY: chest pain TECHNIQUE: 2D digital imaging was performed. COMPARISON: XR PORTABLE CHEST AP from 05/14/2019 FINDINGS: MEDIASTINUM: Normal. HEART: Stable cardiomegaly. PULMONARY VASCULATURE: Normal. LUNGS: Clear. PLEURAL SPACE: No pleural effusion or pneumothorax. BONE:Normal. OTHER FINDINGS:Sternal wires are in place. Pacing wires are stable in position. IMPRESSION: No acute pulmonary findings. DATA REPOSITORY: RADIATION DOSE DELIVERED:
--- NOTE | 2019-05-15 19:44 | DI.VRAD_ITS ---
PROCEDURE INFORMATION: Exam: XR Chest, 1 View Exam date and time: 05/15/2019 7:18 PM Age: 68 years old Clinical indication: Chest pain; Type not specified TECHNIQUE: Imaging protocol: XR of the chest Views: 1 view. COMPARISON: CR XR PORTABLE CHEST AP 03/17/2019 18:49 FINDINGS: Lungs: Unremarkable. No consolidation. Pleural space: Unremarkable. No pleural effusion. No pneumothorax. Heart/Mediastinum: Sternotomy wires and mediastinal cardiac pacing. Stable cardiomegaly. Bones/joints: Unremarkable for patient's age. IMPRESSION: 1. Stable cardiomegaly. 2. No acute cardiopulmonary findings. Dictated and Authenticated by: Almita Lee MD. Ordering:NIELS Riggs MD
[2019-05-15] MEDS: Rosuvastatin 10 MG TAB 20 MG PO (21:10)
[2019-05-15] MEDS: AZITHROMYCIN 250 MG in Normal Saline 250 ML IVPB (21:22)
[2019-05-15] MEDS: Pantoprazole 40 MG VIAL IVP (21:23)
[2019-05-15] MEDS: Insulin Glargine 300 UNITS/3 ML PEN 10 UNITS SC (21:32)
[2019-05-15] MEDS: Lidocaine 5% Patch 1 PATCH TP (21:33)
[2019-05-15 22:38] LABS: Troponin I < 0.05 ng/Ml (<0.06)
[2019-05-16 01:03] VITALS: O2SAT 92
--- NOTE | 2019-05-16 02:49 | EXPE_ITS ---
Date of service: 05/16/19 Time of Service: 02:49 Discharge Sum: Prov Provider Consults: 05/14/19 20:19 Orthopedic Consult [CONS] Routine Consulting Provider: Barak Dennison Consultation Status:: Follow-up needed Clarification:: Manage/follow per spec. Reason for consult:: Evaluate right shoulder with possible hematoma status post fall with hypoprothrombinemia. 05/14/19 20:30 Acrobatic Dancer Consult [CONS] Routine Consultation Status:: Follow-up needed Clarification:: Manage/follow per spec. Reason for consult:: Diabetes management, diabetes education Discharge Sum: Diag Contributing Factors (1) Cough: (2) Dyspnea: (3) Right rotator cuff tear arthropathy: (4) Fracture of fifth metatarsal bone of left foot: (5) Hemarthrosis, shoulder: (6) Supratherapeutic INR: (7) Atrial fibrillation: (8) Acute on chronic kidney failure: (9) Diabetic peripheral neuropathy: Discharge Sum: Summary Date and Time Admission Date: 05/14/2003/02/20 20:09 Date of : 05/16/19 Time of : 02:05 Summary Details: Patient with non-ischemic cardiomyopathy admitted with several days of cough and dyspnea. No specific cause identified beyond baseline congestive heart failure, although concern for possible COVID-19. Started on Zithromax pending results. Earlier this evening patient reported he had been having non-specific chest pain during dinner. EKG at time showed 100% V-pacing and CXR was unchanged. Patient received Mylanta with partial relief and then NTG SL x 1 with further and complete resolution; troponin negative. Given dose 40 mg Protonix IV and was stated that he thereafter appeared similar to how he had been during this stay. Vital signs at this time were stable. At 01:09 RICU notified patient had become bradycardic without pacer function, and then asystolic at 01:11. Note that patient's AICD had previously been inactivated per patient request. ME notified and declined case. Underlying cause of presumed CHF, with potential COVID-19 involvement, pending results. Additional Data Confirmation of as documented by pronouncing clinician: no pulse, no respirations, no heart sounds and pupils fixed and dilated Additional persons at bedside: other Attending/PCP notified?: No Attending Physician: Oneil Steward Was code activated?: No Autopsy requested?: No cigarette making examiner notified?: Yes Advance directives: Yes Hospice patient?: Yes
[2019-05-18 16:50] LABS: SARS-CoV-2 RNA Undetected (Undetected); SARS-CoV-2 Specimen Source Nasopharynx
== END 2019-05-16 02:05 | disposition expired | DRG 204 ==
LOC: ER 20:53 → RCU 22:08
PROVIDERS: General Practice; Admitting Provider Family Medicine; Emergency Provider Student in an Organized Health Care Education/Training Program; PCP Family Medicine; Visit Provider Internal Medicine
DX: R05 Cough (principal); I42.8 Other cardiomyopathies; D68.2 Hereditary deficiency of other clotting factors; N18.4 Chronic kidney disease, stage 4 (severe); I50.42 Chronic combined systolic (congestive) and diastolic (congestive) heart failure; N17.9 Acute kidney failure, unspecified; I13.0 Hypertensive heart and chronic kidney disease with heart failure and stage 1 through stage 4 chronic kidney disease, or unspecified chronic kidney disease; M25.011 Hemarthrosis, right shoulder; E87.1 Hypo-osmolality and hyponatremia; R06.02 Shortness of breath; R07.9 Chest pain, unspecified; E86.0 Dehydration; Z95.810 Presence of automatic (implantable) cardiac defibrillator; R50.9 Fever, unspecified; Z79.01 Long term (current) use of anticoagulants; Z95.2 Presence of prosthetic heart valve; M75.111 Incomplete rotator cuff tear or rupture of right shoulder, not specified as traumatic; M75.81 Other shoulder lesions, right shoulder; M25.411 Effusion, right shoulder; S92.352A Displaced fracture of fifth metatarsal bone, left foot, initial encounter for closed fracture; X58.XXXA Exposure to other specified factors, initial encounter; Z66 Do not resuscitate; E11.42 Type 2 diabetes mellitus with diabetic polyneuropathy; E11.22 Type 2 diabetes mellitus with diabetic chronic kidney disease; R79.1 Abnormal coagulation profile; T45.515A Adverse effect of anticoagulants, initial encounter
CPT/HCPCS: 80048; 80053; 80076; 85027; 85652; 87040; 99221; 99223; 99233; 99239; U0003; 71045; 73030; 73630; 81003; 81015; 83605; 83615; 83735; 84443; 84484; 85025; 85379; 85610; 86140; 87086; J0456; J2270